=== PATIENT | female | born 1985 | race Caucasian/White ===

== ENCOUNTER 2022-07-12 10:05 | Emergency (ER) | payer OTHER ==
[2022-07-12] MEDS ORDERED: Sodium Chloride 0.9% 1000 ML 1,000 ML IV STA ×2 (10:29→13:04)
[2022-07-12] MEDS ORDERED: Zofran 4 MG/2 ML VIAL IV ONE (10:29)
[2022-07-12 10:48] LABS: VBG HCO3- 27.3 meq/L (22-28); VBG HEMOGLOBIN 15.6; VBG O2 SATURATION 67.6 (95-100); VBG POTASSIUM 3.3 (3.5-5.1); VBG pH 7.4 (7.32-7.42)
[2022-07-12 10:49] LABS: Lactic Acid 1.9 (0.4-2.0)
[2022-07-12 10:52] LABS: Absolute Neutrophil Ct (ANC) 3.51 x10^3/uL (1.4-6.9); Basophil (Absolute #) 0.05 x10^3/uL (0-0.4); Eosinophil % 6.5 % (0.00-5.0); Eosinophil (Absolute #) 0.39 x10^3/uL (0-0.5); Hematocrit 42.1 % (35-47); Hemoglobin 14.4 g/dL (12.0-16.0); Lymphocytes % 28.1 % (24.0-44.0); Mean Cell Volume 87.5 fL (78-100); Mean Corpuscular Hemoglobin 29.9 pg (26-32); Mean Corpuscular Hgb Concent. 34.2 g/dL (32-36); Mean Platelet Volume 12.7 fL (7.5-11.0); Monocyte (Absolute #) 0.38 x10^3/uL (0.0-1.3); Monocytes % 6.3 % (0.0-12.0); Neutrophil % 58.1 % (36.0-66.0); Platelet Count 242 x10^3/uL (150-450); Red Blood Count 4.81 x10^6/uL (4.1-5.4); Red Cell Distribution Width 12.3 % (11.5-14.0)
[2022-07-12] MEDS ORDERED: Sodium Chloride 0.9% 1000 ML 1,000 ML ONE ×2 (10:56→13:20)
[2022-07-12] MEDS ORDERED: Zofran 4 MG/2 ML VIAL ONE (10:56)
[2022-07-12 11:04] LABS: ALBUMIN 4.6 g/dL (3.5-5.0); ALKALINE PHOSPHATASE 158 U/L (38-126); ANION GAP 14.4 MEQ/L (5-15); BLOOD UREA NITROGEN 9 mg/dL (7-17); CHLORIDE 95 mmol/L (98-107); Calcium 9.1 mg/dL (8.4-10.2); Carbon Dioxide 27 mmol/L (22-30); Creatinine 1 0.68 mg/dL (0.52-1.04); EST GLOMERULAR FILTRATION RATE > 60.0 ML/MIN; Glucose 330 mg/dL (74-106); MAGNESIUM 1.6 mg/dL (1.6-2.3); Potassium 3.5 mmol/L (3.5-5.1); SGOT/AST 22 U/L (14-36); SGPT/ALT 23 U/L (0-35); SODIUM 133 mmol/L (137-145)
[2022-07-12] MEDS ORDERED: TYLENOL EXTRA STRENGTH 500 MG ONE (11:08)
[2022-07-12] MEDS ORDERED: MORPHINE SULFATE 4 MG INJ ONE ×2 (11:08→11:13)
[2022-07-12 12:58] LABS: Appearance CLEAR (CLEAR); Bilirubin NEGATIVE (NEGATIVE); Glucose 500 mg/dL (NEGATIVE); Ketones LARGE-80 (NEGATIVE); Nitrite NEGATIVE (NEGATIVE); Ph 5.5 (5-6); Protein,Urine Dip NEGATIVE (Negative); RBC NEGATIVE Ery/ul (0-5); Urobilinogen 0.2 mg/dL (0-1)
[2022-07-12 12:59] LABS: Dipstick done @ ? MAIN LAB
[2022-07-12] MEDS ORDERED: MORPHINE SULFATE 4 MG INJ IV ONE (13:05)
--- NOTE | 2022-07-12 13:05 | ERPHSYRPT ---
- History of Present Illness Time Seen by Provider: 07/12/22 10:08 Source: patient Exam Limitations: no limitations Patient Subjective Stated Complaint: hyperglycemia with N&V, diarrhea, body aches, headache Triage Nursing Assessment: Pt brought to the ER by her daughter, tachycardic, rates head and overall pain as 08/03, has been in DKA once before when they diagnosed her with diabetes 3 years ago and as a type 1, pulses normal, skin n/wd, N&V, diarrhea, symptoms began last night and pt administered over 100 units of insulin and was afraid to administer any more Physician History: 37 years old with type I diabetic issues with insulin pump for almost 2 months and currently using sliding scale insulin presented in the ER with hyperglycemia since yesterday. Patient report her blood sugar was reading high on the meter, took 45 units of insulin last night. She also reports having generalized body aches fatigue tiredness, headache with nausea and 2-3 episodes of nonprojectile, nonbilious vomiting. No cough or shortness of breath. Subjective feeling of fever and chills. Patient thinks she is in DKA. Blood sugar is 341 on presentation. Patient has positive ketones urine checked at home. Timing/Duration: yesterday, gradual onset, worse Severity: mild, moderate Associated Symptoms: nausea, vomiting, abdominal pain, headaches, weakness Allergies/Adverse Reactions: amoxicillin Allergy (Verified 07/12/22 10:56) erythromycin base Allergy (Verified 07/12/22 10:56) Home Medications: Atorvastatin Calcium [Lipitor] 20 mg PO DAILY 07/12/22 [History] Fluoxetine HCl [Prozac] 40 mg PO DAILY 07/12/22 [History] Gabapentin [Neurontin] 600 mg PO QID 07/12/22 [History] Insulin Lispro [Admelog] 0 units SQ UD 07/12/22 [History] Levothyroxine Sodium 100 Mcg [Synthroid 100 Mcg] 100 mcg PO DAILY 07/12/22 [History] Lumateperone Tosylate [Caplyta] 42 mg PO DAILY 07/12/22 [History] Omeprazole 40 mg PO DAILY 07/12/22 [History] clonazePAM [Clonazepam] 0.5 mg PO BID 07/12/22 [History] Hx Influenza Vaccination/Date Given: Yes Travel Risk - International Travel Have you traveled outside of the country in past 3 weeks: No - Coronavirus Screening Are you exhibiting any of the following symptoms?: No Close contact with a COVID-19 positive Pt in past 14-21 Days: No - Vaccine Status Have you recieved a Covid-19 vaccination: Yes Therapist Physical: Pfizer - Vaccination Dates Date of 2cond Vaccination (if applicable): 2020 - Review of Systems Constitutional: Fever, Chills, Fatigue, Weakness Eyes: No Symptoms Ears, Nose, & Throat: No Symptoms Respiratory: No Symptoms Cardiac: No Symptoms Abdominal/Gastrointestinal: Abdominal Pain, Nausea, Vomiting Genitourinary Symptoms: No Symptoms Musculoskeletal: Myalgias Neurological: Headache Psychological: No Symptoms Endocrine: No Symptoms Hematologic/Lymphatic: No Symptoms Immunological/Allergic: No Symptoms - Past Medical History Pertinent Past Medical History: Yes Endocrine Medical History: Diabetes Type I, Hypothyroidism Other Medical History: hoshimotos, 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, gastroparesis - Past Surgical History Past Surgical History: Yes Gastrointestinal: Cholecystectomy Musculoskeletal: Orthopedic Surgery Female Surgical History: Hysterectomy Other Surgical History: no saliva gland on rt side, carpel tunnel, bladder surgery, ankle - Social History Smoking Status: Current every day smoker Exposure to second hand smoke: Yes Drug Use: none Patient Lives Alone: No - Female History Hx Now: No - Nursing Vital Signs Nursing Vital Signs: Initial Vital Signs Temperature 97.6 F 07/12/22 10:19 Pulse Rate 105 H 07/12/22 10:19 Blood Pressure 133/78 07/12/22 10:19 O2 Sat by Pulse Oximetry 99 07/12/22 10:19 Pain Scale Pain Intensity 10 - Physical Exam General Appearance: no apparent distress, alert Eye Exam: PERRL/EOMI Ears, Nose, Throat Exam: normal ENT inspection, TMs normal, pharynx normal, moist mucous membranes Neck Exam: normal inspection, non-tender, supple, full range of motion Respiratory Exam: normal breath sounds, lungs clear Cardiovascular Exam: regular rate/rhythm, normal heart sounds Gastrointestinal/Abdomen Exam: soft, normal bowel sounds, No tenderness Back Exam: normal inspection, normal range of motion Extremity Exam: normal inspection, normal range of motion, pelvis stable Neurologic Exam: alert, oriented x 3, cooperative Skin Exam: normal color SpO2 Interpretation: normal SpO2: 98 O2 Delivery: Room Air Ordered Tests: Active Orders 24 hr Category Date Time Status Programmer Analyst Health It STAT Care 07/12/22 10:30 Completed EKG-ER Only STAT Care 07/12/22 10:29 Completed IV Insertion STAT Care 07/12/22 10:29 Completed POCT Glucose Check STAT Care 07/12/22 10:29 Completed CBC W DIFF Stat Lab 07/12/22 10:45 Completed CMP Stat Lab 07/12/22 10:45 Completed Lactic Acid Urgent Lab 07/12/22 10:38 Completed MAGNESIUM Stat Lab 07/12/22 10:45 Completed POCT GLUCOSE Stat Lab 07/12/22 10:25 Completed POCT GLUCOSE Stat Lab 07/12/22 14:39 Completed UA W/RFX CULTURE Stat Lab 07/12/22 11:49 Completed VENOUS BLOOD GAS Urgent Lab 07/12/22 10:38 Completed Medication Summary Discontinued Medications Generic Name Dose Route Start Last Admin Trade Name Artisq PRN Reason Stop Dose Admin Acetaminophen Confirm 07/12/22 11:08 Acetaminophen 500 Mg Tablet Administered 07/12/22 11:09 Dose 1,000 mg .ROUTE .STK-MED ONE Acetaminophen 1,000 mg 07/12/22 13:15 07/12/22 11:10 Acetaminophen 500 Mg Tablet PO 07/12/22 13:16 1,000 mg STAT ONE Administration Sodium Chloride 1,000 mls @ 999 mls/hr 07/12/22 10:29 07/12/22 12:27 Sodium Chloride 0.9% 1000 Ml IV 07/12/22 11:29 Infused .Q1H1M STA Infusion Sodium Chloride Confirm 07/12/22 10:56 Sodium Chloride 0.9% 1000 Ml Administered 07/12/22 10:57 Dose 1,000 mls @ ud .ROUTE .STK-MED ONE Sodium Chloride 1,000 mls @ 999 mls/hr 07/12/22 13:04 07/12/22 14:42 Sodium Chloride 0.9% 1000 Ml IV 07/12/22 14:04 Infused .Q1H1M STA Infusion Sodium Chloride Confirm 07/12/22 13:20 Sodium Chloride 0.9% 1000 Ml Administered 07/12/22 13:21 Dose 1,000 mls @ ud .ROUTE .STK-MED ONE Insulin Human Regular 6 unit 07/12/22 14:49 07/12/22 15:13 Insulin Regular, Human 1 Unit IV 07/12/22 14:50 6 unit STAT ONE Administration Insulin Human Regular Confirm 07/12/22 15:12 Insulin Regular, Human 1 Unit Administered 07/12/22 15:13 Dose 6 unit .ROUTE .STK-MED ONE Morphine Sulfate Confirm 07/12/22 11:08 Morphine Sulfate 4 Mg/Ml Injection Administered 07/12/22 11:09 Dose 4 mg .ROUTE .STK-MED ONE Morphine Sulfate Confirm 07/12/22 11:13 Morphine Sulfate 4 Mg/Ml Injection Administered 07/12/22 11:14 Dose 4 mg .ROUTE .STK-MED ONE Morphine Sulfate 4 mg 07/12/22 13:05 07/12/22 11:10 Morphine Sulfate 4 Mg/Ml Injection IV 07/12/22 13:06 4 mg STAT ONE Administration Ondansetron HCl 4 mg 07/12/22 10:29 07/12/22 11:02 Ondansetron Hcl 4 Mg/2 Ml Vial IV 07/12/22 10:30 4 mg STAT ONE Administration Ondansetron HCl Confirm 07/12/22 10:56 Ondansetron Hcl 4 Mg/2 Ml Vial Administered 07/12/22 10:57 Dose 4 mg .ROUTE .STK-MED ONE Lab/Rad Data: Laboratory Result Diagrams 07/12/22 10:45 07/12/22 10:45 Laboratory Results 07/12/22 07/12/22 07/12/22 Range/Units 14:39 14:30 11:49 WBC (4.0-10.5) x10^3/uL RBC (4.1-5.4) x10^6/uL Hgb (12.0-16.0) g/dL Hct (35-47) % MCV (78-100) fL MCH (26-32) pg MCHC (32-36) g/dL RDW (11.5-14.0) % Plt Count (150-450) x10^3/uL MPV (7.5-11.0) fL Gran % (36.0-66.0) % Immature Gran % (Auto) (0.00-0.4) % Nucleat RBC Rel Count (0.00-0.1) % Eos # (Auto) (0-0.5) x10^3/uL Immature Gran # (Auto) (0.00-0.03) x10^3u/L Absolute Lymphs (auto) (1.0-4.6) x10^3/uL Absolute Monos (auto) (0.0-1.3) x10^3/uL Absolute Nucleated RBC (0.00-0.01) x10^3u/L Lymphocytes % (24.0-44.0) % Monocytes % (0.0-12.0) % Eosinophils % (0.00-5.0) % Basophils % (0.0-0.4) % Absolute Granulocytes (1.4-6.9) x10^3/uL Basophils # (0-0.4) x10^3/uL pO2/FiO2 Ratio % VBG pH (7.32-7.42) VBG pCO2 at Pat Temp (42-55) mm/Hg VBG pO2 at Pat Temp (25-40) mm/Hg VBG HCO3 (22-28) meq/L VBG O2 Sat (Paul) (95-100) VBG Base Excess (-2.0-2.0) VBG Hemoglobin VBG Carboxyhemoglobin (0.0-6.9) % T HGB POC Potassium (3.5-5.1) Sodium (137-145) mmol/L Potassium (3.5-5.1) mmol/L Chloride (98-107) mmol/L Carbon Dioxide (22-30) mmol/L Anion Gap (5-15) MEQ/L BUN (7-17) mg/dL Creatinine (0.52-1.04) mg/dL Estimated GFR ML/MIN Glucose (74-106) mg/dL POC Glucometer 303 H (74 to 106) mg/dL Lactic Acid (0.4-2.0) Calcium (8.4-10.2) mg/dL Magnesium (1.6-2.3) mg/dL Total Bilirubin (0.2-1.3) mg/dL AST (14-36) U/L ALT (0-35) U/L Alkaline Phosphatase (38-126) U/L Serum Total Protein (6.3-8.2) g/dL Albumin (3.5-5.0) g/dL Urinalys Dipstick Clnc MAIN LAB Urine Color YELLOW (YELLOW) Urine Appearance CLEAR (CLEAR) Urine pH 5.5 (5-6) Ur Specific Lexa 1.020 (1.005-1.025) POC Urine Protein Conf NEGATIVE (Negative) Urine Ketones LARGE-80 (NEGATIVE) Urine Nitrite NEGATIVE (NEGATIVE) Urine Bilirubin NEGATIVE (NEGATIVE) Urine Urobilinogen 0.2 (0-1) mg/dL Urine Leukocytes NEGATIVE (NEGATIVE) Urine WBC (Auto) NONE (0-5) /HPF Urine RBC (Auto) NONE (0-2) /HPF U Epithel Cells (Auto) NONE (FEW) /HPF Urine Bacteria (Auto) NONE (NEGATIVE) /HPF Urine RBC NEGATIVE (0-5) Rylan/ul Ur Culture Indicated? NO Urine Glucose 500 (NEGATIVE) mg/dL Influenza Type A Ag NEGATIVE (NEGATIVE) Influenza Type B Ag NEGATIVE (NEGATIVE) RSV (PCR) NEGATIVE (Negative) SARS-CoV-2 (PCR) NEGATIVE (NEGATIVE) 07/12/22 07/12/22 07/12/22 Range/Units 10:45 10:45 10:38 WBC 6.0 (4.0-10.5) x10^3/uL RBC 4.81 (4.1-5.4) x10^6/uL Hgb 14.4 (12.0-16.0) g/dL Hct 42.1 (35-47) % MCV 87.5 (78-100) fL MCH 29.9 (26-32) pg MCHC 34.2 (32-36) g/dL RDW 12.3 (11.5-14.0) % Plt Count 242 (150-450) x10^3/uL MPV 12.7 H (7.5-11.0) fL Gran % 58.1 (36.0-66.0) % Immature Gran % (Auto) 0.2 (0.00-0.4) % Nucleat RBC Rel Count 0.0 (0.00-0.1) % Eos # (Auto) 0.39 (0-0.5) x10^3/uL Immature Gran # (Auto) 0.01 (0.00-0.03) x10^3u/L Absolute Lymphs (auto) 1.70 (1.0-4.6) x10^3/uL Absolute Monos (auto) 0.38 (0.0-1.3) x10^3/uL Absolute Nucleated RBC 0.00 (0.00-0.01) x10^3u/L Lymphocytes % 28.1 (24.0-44.0) % Monocytes % 6.3 (0.0-12.0) % Eosinophils % 6.5 H (0.00-5.0) % Basophils % 0.8 (0.0-0.4) % Absolute Granulocytes 3.51 (1.4-6.9) x10^3/uL Basophils # 0.05 (0-0.4) x10^3/uL pO2/FiO2 Ratio 21 % VBG pH 7.40 (7.32-7.42) VBG pCO2 at Pat Temp 44 (42-55) mm/Hg VBG pO2 at Pat Temp 39 (25-40) mm/Hg VBG HCO3 27.3 (22-28) meq/L VBG O2 Sat (Paul) 67.6 L (95-100) VBG Base Excess 2.0 (-2.0-2.0) VBG Hemoglobin 15.6 VBG Carboxyhemoglobin 2.0 (0.0-6.9) % T HGB POC Potassium 3.3 L (3.5-5.1) Sodium 133 L (137-145) mmol/L Potassium 3.5 (3.5-5.1) mmol/L Chloride 95 L (98-107) mmol/L Carbon Dioxide 27 (22-30) mmol/L Anion Gap 14.4 (5-15) MEQ/L BUN 9 (7-17) mg/dL Creatinine 0.68 (0.52-1.04) mg/dL Estimated GFR > 60.0 ML/MIN Glucose 330 H (74-106) mg/dL POC Glucometer (74 to 106) mg/dL Lactic Acid 1.9 (0.4-2.0) Calcium 9.1 (8.4-10.2) mg/dL Magnesium 1.6 (1.6-2.3) mg/dL Total Bilirubin 0.90 (0.2-1.3) mg/dL AST 22 (14-36) U/L ALT 23 (0-35) U/L Alkaline Phosphatase 158 H (38-126) U/L Serum Total Protein 8.0 (6.3-8.2) g/dL Albumin 4.6 (3.5-5.0) g/dL Urinalys Dipstick Clnc Urine Color (YELLOW) Urine Appearance (CLEAR) Urine pH (5-6) Ur Specific Lexa (1.005-1.025) POC Urine Protein Conf (Negative) Urine Ketones (NEGATIVE) Urine Nitrite (NEGATIVE) Urine Bilirubin (NEGATIVE) Urine Urobilinogen (0-1) mg/dL Urine Leukocytes (NEGATIVE) Urine WBC (Auto) (0-5) /HPF Urine RBC (Auto) (0-2) /HPF U Epithel Cells (Auto) (FEW) /HPF Urine Bacteria (Auto) (NEGATIVE) /HPF Urine RBC (0-5) Rylan/ul Ur Culture Indicated? Urine Glucose (NEGATIVE) mg/dL Influenza Type A Ag (NEGATIVE) Influenza Type B Ag (NEGATIVE) RSV (PCR) (Negative) SARS-CoV-2 (PCR) (NEGATIVE) 07/12/22 Range/Units 10:25 WBC (4.0-10.5) x10^3/uL RBC (4.1-5.4) x10^6/uL Hgb (12.0-16.0) g/dL Hct (35-47) % MCV (78-100) fL MCH (26-32) pg MCHC (32-36) g/dL RDW (11.5-14.0) % Plt Count (150-450) x10^3/uL MPV (7.5-11.0) fL Gran % (36.0-66.0) % Immature Gran % (Auto) (0.00-0.4) % Nucleat RBC Rel Count (0.00-0.1) % Eos # (Auto) (0-0.5) x10^3/uL Immature Gran # (Auto) (0.00-0.03) x10^3u/L Absolute Lymphs (auto) (1.0-4.6) x10^3/uL Absolute Monos (auto) (0.0-1.3) x10^3/uL Absolute Nucleated RBC (0.00-0.01) x10^3u/L Lymphocytes % (24.0-44.0) % Monocytes % (0.0-12.0) % Eosinophils % (0.00-5.0) % Basophils % (0.0-0.4) % Absolute Granulocytes (1.4-6.9) x10^3/uL Basophils # (0-0.4) x10^3/uL pO2/FiO2 Ratio % VBG pH (7.32-7.42) VBG pCO2 at Pat Temp (42-55) mm/Hg VBG pO2 at Pat Temp (25-40) mm/Hg VBG HCO3 (22-28) meq/L VBG O2 Sat (Paul) (95-100) VBG Base Excess (-2.0-2.0) VBG Hemoglobin VBG Carboxyhemoglobin (0.0-6.9) % T HGB POC Potassium (3.5-5.1) Sodium (137-145) mmol/L Potassium (3.5-5.1) mmol/L Chloride (98-107) mmol/L Carbon Dioxide (22-30) mmol/L Anion Gap (5-15) MEQ/L BUN (7-17) mg/dL Creatinine (0.52-1.04) mg/dL Estimated GFR ML/MIN Glucose (74-106) mg/dL POC Glucometer 341 H (74 to 106) mg/dL Lactic Acid (0.4-2.0) Calcium (8.4-10.2) mg/dL Magnesium (1.6-2.3) mg/dL Total Bilirubin (0.2-1.3) mg/dL AST (14-36) U/L ALT (0-35) U/L Alkaline Phosphatase (38-126) U/L Serum Total Protein (6.3-8.2) g/dL Albumin (3.5-5.0) g/dL Urinalys Dipstick Clnc Urine Color (YELLOW) Urine Appearance (CLEAR) Urine pH (5-6) Ur Specific Lexa (1.005-1.025) POC Urine Protein Conf (Negative) Urine Ketones (NEGATIVE) Urine Nitrite (NEGATIVE) Urine Bilirubin (NEGATIVE) Urine Urobilinogen (0-1) mg/dL Urine Leukocytes (NEGATIVE) Urine WBC (Auto) (0-5) /HPF Urine RBC (Auto) (0-2) /HPF U Epithel Cells (Auto) (FEW) /HPF Urine Bacteria (Auto) (NEGATIVE) /HPF Urine RBC (0-5) Rylan/ul Ur Culture Indicated? Urine Glucose (NEGATIVE) mg/dL Influenza Type A Ag (NEGATIVE) Influenza Type B Ag (NEGATIVE) RSV (PCR) (Negative) SARS-CoV-2 (PCR) (NEGATIVE) - Progress Progress: improved Progress Note: 07/12/22 14:48 She is given fluids, feeling better on reevaluation. She is not in DKA or HHS. Has hyperglycemia, given insulin. No focus of infection. Counseled on glycemic control. Outpatient follow-up recommended. Discussed signs symptoms of worsening needing return to ER which she seems understanding. Counseled pt/family regarding: lab results, diagnosis, need for follow-up - Departure Departure Disposition: Home Clinical Impression: Hyperglycemia Condition: Good Critical Care Time: No Referrals: DOCTOR,NO FAMILY [Primary Care Provider] - Follow up/PCP as directed CHIKIS BRADLEY MD [ACTIVE STAFF] - Follow up/PCP as directed Instructions: High Blood Sugar, Adult (DC) Additional Instructions: Keep yourself well-hydrated. Monitor your blood sugar regularly, keep a log and follow-up with primary care. Continue with insulin sliding scale. Return to ER for uncontrolled blood sugar.
[2022-07-12] MEDS ORDERED: TYLENOL EXTRA STRENGTH 500 MG PO ONE (13:15)
[2022-07-12 13:28] LABS: Urine Cultured Indicated? NO
[2022-07-12] MEDS ORDERED: HUMULIN R IV ONE (14:49)
[2022-07-12 15:06] LABS: INFLUENZA A NEGATIVE (NEGATIVE); INFLUENZA B NEGATIVE (NEGATIVE); RESPIRATORY SYNCTIAL VIRUS NEGATIVE (Negative); SARS-CoV-2 Xpert Express NEGATIVE (NEGATIVE)
[2022-07-12] MEDS ORDERED: HUMULIN R ONE (15:12)
[2022-07-12 15:15] VITALS: BP 110/57; PULSE 94
[2022-07-12 22:50] VITALS: O2SAT 98
== END 2022-07-12 15:38 | disposition home or self-care (01) ==
LOC: ED 10:05
DX: E10.65 Type 1 diabetes mellitus with hyperglycemia (principal); M79.10 Myalgia, unspecified site; R53.83 Other fatigue; R51.9 Headache, unspecified; R11.2 Nausea with vomiting, unspecified; Z72.0 Tobacco use; Z79.4 Long term (current) use of insulin; Z96.41 Presence of insulin pump (external) (internal); Z79.899 Other long term (current) drug therapy
CPT/HCPCS: 0241U; 36000; 36415; 80053; 81015; 82805; 82947; 83605; 83735; 85025; 93005; 93041; 96360; 96374; 96375; 99284; J1815; J2270; J2405; A9270-GY

== ENCOUNTER 2023-08-11 12:34 | Emergency (ER) | payer OTHER ==
--- NOTE | 2023-08-11 12:37 | ERPHSYRPT ---
- History of Present Illness Time Seen by Provider: 08/11/23 12:37 Source: patient Exam Limitations: no limitations Physician History: This is an obese 38-year-old white female patient who several weeks ago underwent right knee replacement followed by postoperative infection. She is currently on doxycycline medication for 6 months which was recently started. Patient was told not to miss any doses. However, she did miss approximately 1 week of antibiotics. In the last several days she has noticed increased swelling and tenderness in her right lower extremity. Patient is a daily smoker of cigarettes. Patient does have insulin-dependent diabetes and peripheral neuropathy and is taking gabapentin for this. She has only been taking Tylenol and ibuprofen for pain control. This is not helping her. Patient has a history of hypertension, obesity, hyperlipidemia, hypothyroidism and gastroesophageal reflux disease. She has had no cough. She denies chest pain. She is not short of breath Method of Injury: other (Postoperative right knee replacement) Occurred: days ago Quality: aching (Last several days), throbbing Severity of Pain-Max: moderate Severity of Pain-Current: moderate Lower Extremities Pain: knee: right Modifying Factors: Improves With: movement Associated Symptoms: other Allergies/Adverse Reactions: amoxicillin Allergy (Verified 07/12/22 10:56) erythromycin base Allergy (Verified 07/12/22 10:56) Home Medications: Atorvastatin Calcium [Lipitor] 20 mg PO DAILY 07/12/22 [History] Fluoxetine HCl [Prozac] 40 mg PO DAILY 07/12/22 [History] Gabapentin [Neurontin] 600 mg PO QID 07/12/22 [History] Insulin Lispro [Admelog] 0 units SQ UD 07/12/22 [History] Levothyroxine Sodium 100 Mcg [Synthroid 100 Mcg] 112 mcg PO DAILY 07/12/22 [History] Lumateperone Tosylate [Caplyta] 42 mg PO DAILY 07/12/22 [History] Omeprazole 40 mg PO DAILY 07/12/22 [History] clonazePAM [Clonazepam] 0.5 mg PO TID 07/12/22 [History] Doxycycline Hyclate 100 mg [Vibramycin 100 MG] 100 mg PO BID 08/11/23 [History] Metoprolol Tartrate 25 mg [Lopressor 25MG Tab] 25 mg PO DAILY 08/11/23 [History] Tizanidine HCl 4 mg [Zanaflex 4 MG] 4 mg PO BID 08/11/23 [History] Hx Influenza Vaccination/Date Given: Yes Travel Risk - International Travel Have you traveled outside of the country in past 3 weeks: No (Hurts to bear weight but can do so) - Coronavirus Screening Are you exhibiting any of the following symptoms?: No Close contact with a COVID-19 positive Pt in past 14-21 Days: No - Vaccine Status Have you recieved a Covid-19 vaccination: Yes 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, gastroparesis - Past Surgical History Past Surgical History: Yes Gastrointestinal: Cholecystectomy Musculoskeletal: Orthopedic Surgery Female Surgical History: Hysterectomy Other Surgical History: no saliva gland on rt side, carpel tunnel, bladder surgery, ankle - Social History Smoking Status: Current every day smoker Exposure to second hand smoke: Yes Drug Use: none Patient Lives Alone: No - Nursing Vital Signs Nursing Vital Signs: Initial Vital Signs Pulse Rate 76 08/11/23 13:00 Blood Pressure 131/93 08/11/23 13:00 O2 Sat by Pulse Oximetry 98 08/11/23 13:00 Pain Scale Pain Intensity 8 - Physical Exam General Appearance: no apparent distress, alert, anxiety, obese Eyes, Ears, Nose, Throat Exam: normal ENT inspection, moist mucous membranes Neck Exam: normal inspection, non-tender, supple, full range of motion Cardiovascular/Respiratory Exam: chest non-tender, normal breath sounds, regular rate/rhythm, heart sounds normal, no respiratory distress Gastrointestinal/Abdominal Exam: non-tender Back Exam: normal inspection, normal range of motion, No CVA tenderness, No vertebral tenderness Hips Exam: bilateral: non-tender, normal inspection, normal range of motion, no evidence of injury Legs Exam: bilateral leg: non-tender, normal inspection, normal range of motion, no evidence of injury Knees Exam: right knee: soft tissue tenderness (Right anterior swelling), swelling (Right anterior swelling), left knee: non-tender, normal inspection, normal range of motion, no evidence of injury Ankle Exam: bilateral ankle: non-tender, normal inspection, normal range of motion, no evidence of injury Foot Exam: bilateral foot: non-tender, normal inspection, normal range of motion, no evidence of injury Neuro/Tendon Exam: normal sensation, normal motor functions, normal tendon functions, responds to pain, no evidence tendon injury Mental Status Exam: alert, oriented x 3, cooperative Skin Exam: normal color, warm, dry SpO2 Interpretation: normal O2 Delivery: Room Air - Course Nursing assessment & vital signs reviewed: Yes Ordered Tests: Active Orders 24 hr Category Date Time Status LOWER EXTREMITY WO CONTRAST [CT] Stat Exams 08/11/23 13:57 Completed VENOUS UNILAT/LIMITED EXTREMIT [US] Stat Exams 08/11/23 14:02 Completed Medication Summary Discontinued Medications Generic Name Dose Route Start Last Admin Trade Name Artisq PRN Reason Stop Dose Admin Hydromorphone HCl 1 mg 08/11/23 13:56 08/11/23 14:20 Hydromorphone 1 Mg/1ml Inj IM 08/11/23 13:57 1 mg STAT ONE Administration Hydromorphone HCl Confirm 08/11/23 14:01 Hydromorphone 1 Mg/1ml Inj Administered 08/11/23 14:02 Dose 1 mg .ROUTE .STK-MED ONE Ondansetron HCl 4 mg 08/11/23 13:56 08/11/23 14:19 Zofran 4 Mg/Udtablet Orally Disintegrating PO 08/11/23 13:57 4 mg STAT ONE Administration Ondansetron HCl Confirm 08/11/23 14:01 Zofran 4 Mg/Udtablet Orally Disintegrating Administered 08/11/23 14:02 Dose 4 mg .ROUTE .STK-MED ONE - Progress Progress: improved, pain not gone completely Progress Note: 08/11/23 14:07 This patient's medical issue is 1 of low to moderate complexity. Level complex in the work-up performed is based on review of the patient's past medical history, review the patient's medication list, review the patient's drug allergy list, history of present illness and physical findings on examination. This patient will undergo a CT scan of the right knee without contrast as well as a venous Doppler of the right lower extremity to evaluate for possible deep venous thrombosis. 08/11/23 15:12 Venous Doppler of th right lower extremity is negative for DVT. This was interpreted by the radiologist. CT scan of the right knee without contrast shows small nonspecific effusion with anterior scar. No other bony, articular or soft tissue abnormality seen. No mention of abscess. Counseled pt/family regarding: diagnosis, need for follow-up, rad results Medical Desision Making - Diagnostic Testing Diagnostic test were ordered, analyzed, and reviewed by me: Yes Radiological Interpretation: Reviewed by me, Teleradiologist Report - Risk of complications The pt has a mod risk of morbidity or mortality based on: Need for prescription drug management - Departure Departure Disposition: Home Clinical Impression: Right knee pain Condition: Stable Critical Care Time: No Referrals: DOCTOR,NO FAMILY [NON-STAFF PHY W/O PRIVILEGES] - Follow up/PCP as directed Additional Instructions: Ice pack to right anterior knee 3 times a day for the next 48 hours. Call your orthopedic surgeon today to make certain you obtain an appointment next 3 to 5 days. Continue your antibiotics as prescribed. Prescriptions: Oxycodone HCl/Acetaminophen [Percocet 5-325 mg Tablet] 1 each PO Q8H PRN PRN #6 tablet MDD 3 PRN Reason: Moderate To Severe Pain
[2023-08-11 13:05] VITALS: RESP 18; TEMP 97
[2023-08-11] MEDS ORDERED: ZOFRAN ODT 4 MG PO ONE (13:56)
[2023-08-11] MEDS ORDERED: Hydromorphone 1 mg/ml Injection IM ONE ×2 (13:56→15:16)
[2023-08-11] MEDS ORDERED: Hydromorphone 1 mg/ml Injection ONE ×2 (14:01→15:20)
[2023-08-11] MEDS ORDERED: ZOFRAN ODT 4 MG ONE (14:01)
--- NOTE | 2023-08-11 14:38 | XRAY ---
Indication: Pain and swelling following knee replacement. Two-dimensional sonogram and color Doppler imaging of the major venous vessels of the right leg performed. Comparison: None No thrombus seen in the examined deep venous vessels of the right leg including greater saphenous vein. Veins demonstrate normal compressibility. Venous waveforms are normal with and without augmentation. Impression: Right leg negative for DVT.
--- NOTE | 2023-08-11 14:56 | XRAY ---
Indication: Pain and swelling following knee replacement April 26, 2023. Multiple contiguous axial images obtained through the right knee. Sagittal and coronal reformatted images obtained. Comparison: None Total knee arthroplasty with extreme beam artifact from prosthesis limiting CT exam. Small nonspecific effusion and anterior knee scar. No other bony, articular, or soft tissue abnormalities on this noncontrast exam.
[2023-08-11 15:58] VITALS: BP 110/67
[2023-08-11 16:19] VITALS: PULSE 78; O2SAT 97
== END 2023-08-11 16:18 | disposition home or self-care (01) ==
LOC: ED 12:34
DX: M25.561 Pain in right knee (principal); M79.604 Pain in right leg; E10.42 Type 1 diabetes mellitus with diabetic polyneuropathy; I10 Essential (primary) hypertension; E78.5 Hyperlipidemia, unspecified; Z79.891 Long term (current) use of opiate analgesic; Z79.899 Other long term (current) drug therapy; Z72.0 Tobacco use
CPT/HCPCS: 73700; 93971; 96372; 99284; J1170; Q0162

== ENCOUNTER 2023-09-22 08:18 | Emergency (ER) | payer OTHER ==
--- NOTE | 2023-09-22 08:23 | ERPHSYRPT ---
- History of Present Illness Time Seen by Provider: 09/22/23 08:23 Source: patient Exam Limitations: no limitations Physician History: This is an obese 38-year-old white female patient who underwent a right knee replacement in April 2023. After she had a infection present. She has a history of MRSA. Patient is on doxycycline for 6 months. Patient sees a pain specialist. Patient saw infectious disease specialist 2 days ago. Patient was seen for the same issue in our emergency department on 08/11/2023. She underwent an ultrasound of that right lower extremity was negative for DVT. She underwent a CAT scan of that right knee and there was a nonspecific effusion present. She has not seen her orthopedic surgeon. Patient feels that the right knee is more swollen and she is concerned that there is been movement in the surgical hardware present. Patient states she put a call into the infectious disease doctor because she did see on her profile that the inflammatory markers are elevated. She also put a call into her orthopedic doctor and neither 1 have contacted her. Patient has a history of anxiety, hypertension, hypothyroidism (Conchis's disease), depression, insulin-dependent diabetes and hyperlipidemia. Method of Injury: other (Postoperative right knee pain and swelling) Severity of Pain-Max: moderate Severity of Pain-Current: mild (Mild to moderate) Lower Extremities Pain: knee: right Modifying Factors: Improves With: movement Associated Symptoms: popping sensation Allergies/Adverse Reactions: amoxicillin Allergy (Verified 09/22/23 08:29) erythromycin base Allergy (Verified 09/22/23 08:29) Home Medications: Atorvastatin Calcium [Lipitor] 20 mg PO DAILY 07/12/22 [History] Fluoxetine HCl [Prozac] 40 mg PO DAILY 07/12/22 [History] Gabapentin [Neurontin] 800 mg PO QID 07/12/22 [History] Insulin Lispro [Admelog] 0 units SQ UD 07/12/22 [History] Levothyroxine Sodium 100 Mcg [Synthroid 100 Mcg] 112 mcg PO DAILY 07/12/22 [History] Lumateperone Tosylate [Caplyta] 42 mg PO DAILY 07/12/22 [History] Omeprazole 40 mg PO DAILY 07/12/22 [History] clonazePAM [Clonazepam] 0.5 mg PO TID 07/12/22 [History] Doxycycline Hyclate 100 mg [Vibramycin 100 MG] 100 mg PO BID 08/11/23 [History] Metoprolol Tartrate 25 mg [Lopressor 25MG Tab] 25 mg PO DAILY 08/11/23 [History] Tizanidine HCl 4 mg [Zanaflex 4 MG] 4 mg PO BID 08/11/23 [History] Hx Tetanus, Diphtheria Vaccination/Date Given: Yes Hx Influenza Vaccination/Date Given: Yes Hx Pneumococcal Vaccination/Date Given: Yes Travel Risk - International Travel Have you traveled outside of the country in past 3 weeks: No - Coronavirus Screening Are you exhibiting any of the following symptoms?: No Close contact with a COVID-19 positive Pt in past 14-21 Days: No - Vaccine Status Have you recieved a Covid-19 vaccination: Yes 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, gastroparesis - Past Surgical History Past Surgical History: Yes Gastrointestinal: Cholecystectomy Musculoskeletal: Orthopedic Surgery Female Surgical History: Hysterectomy Other Surgical History: no saliva gland on rt side, carpel tunnel, bladder surgery, ankle - Social History Smoking Status: Current every day smoker Exposure to second hand smoke: Yes Drug Use: none Patient Lives Alone: No - Nursing Vital Signs Nursing Vital Signs: Initial Vital Signs Temperature 98.0 F 09/22/23 08:31 Pulse Rate 89 09/22/23 08:31 Respiratory Rate 18 09/22/23 08:31 Blood Pressure 128/74 09/22/23 08:31 O2 Sat by Pulse Oximetry 99 09/22/23 08:31 Pain Scale Pain Intensity 6 - Physical Exam General Appearance: no apparent distress, alert, anxiety, obese Eyes, Ears, Nose, Throat Exam: normal ENT inspection, moist mucous membranes Neck Exam: normal inspection, non-tender, supple, full range of motion Cardiovascular/Respiratory Exam: chest non-tender, no respiratory distress Gastrointestinal/Abdominal Exam: non-tender Back Exam: normal inspection, normal range of motion, No CVA tenderness, No vertebral tenderness Hips Exam: bilateral: non-tender, normal inspection, normal range of motion, no evidence of injury Legs Exam: bilateral leg: non-tender, normal inspection, normal range of motion, no evidence of injury Knees Exam: right knee: soft tissue tenderness, swelling (+/- Anteriorly), other (No significant warmth or redness on my examination), left knee: non-tender, normal inspection, normal range of motion, no evidence of injury Ankle Exam: bilateral ankle: non-tender, normal inspection, normal range of motion, no evidence of injury Foot Exam: bilateral foot: non-tender, normal inspection, normal range of motion, no evidence of injury Neuro/Tendon Exam: normal sensation, normal motor functions, normal tendon functions, responds to pain, no evidence tendon injury Mental Status Exam: alert, oriented x 3, cooperative Skin Exam: normal color, warm, dry SpO2 Interpretation: normal O2 Delivery: Room Air - Course Nursing assessment & vital signs reviewed: Yes Ordered Tests: Active Orders 24 hr Category Date Time Status KNEE (3 VIEWS) Stat Exams 09/22/23 08:44 Completed Medication Summary Discontinued Medications Generic Name Dose Route Start Last Admin Trade Name Beth PRN Reason Stop Dose Admin Hydromorphone HCl 1 mg 09/22/23 08:46 09/22/23 09:06 Hydromorphone 1 Mg/1ml Inj IM 09/22/23 08:47 1 mg STAT ONE Administration Hydromorphone HCl Confirm 09/22/23 08:57 Hydromorphone 1 Mg/1ml Inj Administered 09/22/23 08:58 Dose 1 mg .ROUTE .STK-MED ONE Levofloxacin 500 mg 09/22/23 08:47 09/22/23 09:48 Levofloxacin 500 Mg Tablet PO 09/22/23 08:48 Not Given STAT ONE Ondansetron HCl 4 mg 09/22/23 08:47 09/22/23 09:06 Zofran 4 Mg/Udtablet Orally Disintegrating PO 09/22/23 08:48 4 mg STAT ONE Administration Ondansetron HCl Confirm 09/22/23 08:56 Zofran 4 Mg/Udtablet Orally Disintegrating Administered 09/22/23 08:57 Dose 4 mg .ROUTE .STK-MED ONE Trimethoprim/Sulfamethoxazole 1 tab 09/22/23 08:49 09/22/23 09:06 Smz/Tmp Ds Tablet 1 Tablet PO 09/22/23 08:50 1 tab STAT ONE Administration Trimethoprim/Sulfamethoxazole Confirm 09/22/23 08:56 Smz/Tmp Ds Tablet 1 Tablet Administered 09/22/23 08:57 Dose 1 tab PO .STK-MED ONE - Progress Progress: improved, pain not gone completely Progress Note: 09/22/23 08:56 This patient's medical issue is 1 of low to moderate complexity. Level complex in the workup performed is based on review the patient's past medical history, review the patient's medication list, reviewed patient's drug allergy list, history of present illness and physical findings on examination. This patient workup includes x-ray of the right knee. We will also provide the patient an oral Bactrim DS, intramuscular Dilaudid 1 mg and 4 mg of Zofran ODT. Patient will need to continue to try to make contact with her infectious disease specialist and orthopedic surgeon today for further evaluation and management 09/22/23 08:57 09/22/23 09:16 I interpreted the x-ray of the right knee. I do not see any movement or abnormality in the position of the patient's surgical hardware. The patient was told this. She was also informed that if she wants to wait for the radiologist final interpretation, it may take longer than usual to receive that impression secondary to multiple studies that the radiologist is reading at this time. 09/22/23 09:52 The radiologist interpretation of the x-ray of the right knee returned. Knee replacement without evidence of breakage or loosening of internal fixation. Tiny metallic density measuring up to 1.5 mm seen in soft tissue anterior medial aspect of knee anterior medially just inferior to the level of the patella. Likely a foreign body. No acute fracture or dislocation present. These findings were discussed in detail with the patient and her significant other/family member. Counseled pt/family regarding: diagnosis, need for follow-up, rad results Medical Desision Making - Independent Historian Additional History obtained from: Spouse - Diagnostic Testing Diagnostic test were ordered, analyzed, and reviewed by me: Yes Radiological Interpretation: Interpreted by me, Reviewed by me, Teleradiologist Report - Risk of complications Low Risk: Low risk of morbidity from additional dx testing or treatment - Departure Departure Disposition: Home Clinical Impression: Right knee pain Condition: Stable Critical Care Time: No Referrals: SHANDA MATOS MD [Primary Care Provider] - Follow up/PCP as directed Additional Instructions: Take your antibiotics as prescribed. Call your primary care physician and pain specialist for further evaluation management of your outpatient pain medication. Call your orthopedic surgeon and infectious disease specialist for further evaluation management of your antibiotic therapy as an outpatient and any other outpatient studies necessary.
[2023-09-22 08:34] VITALS: RESP 18; TEMP 98
[2023-09-22] MEDS ORDERED: Hydromorphone 1 mg/ml Injection IM ONE (08:46)
[2023-09-22] MEDS ORDERED: ZOFRAN ODT 4 MG PO ONE (08:47)
[2023-09-22] MEDS ORDERED: Levofloxacin 500 MG Tablet PO ONE (08:47)
[2023-09-22] MEDS ORDERED: BACTRIM DS TABLET PO ONE ×2 (08:49→08:56)
[2023-09-22] MEDS ORDERED: ZOFRAN ODT 4 MG ONE (08:56)
[2023-09-22] MEDS ORDERED: Hydromorphone 1 mg/ml Injection ONE (08:57)
--- NOTE | 2023-09-22 09:45 | XRAY ---
CLINICAL HISTORY:knee pain COMPARISON:None TECHNIQUE:X-ray knee right AP, oblique, and lateral views. FINDINGS: Knee replacement is noted without evidence of break or loosening of internal fixation. Tiny metallic density measures up to 1.5mm noted in the soft tissue at the anteromedial aspect of knee articulation just inferior to the level of the patella, likely a foreign body. Normal bone mineralization. Radiological examination of the knee demonstrates no focal bony lesion or bone erosion. No sclerotic or destructive bone changes. No definite fracture or dislocation. No joint effusion in the suprapatellar bursa. Soft tissues appear unremarkable. IMPRESSION: Knee replacement without evidence of break or loosening of internal fixation. Tiny metallic density measures up to 1.5mm noted in the soft tissue at the anteromedial aspect of knee articulation just inferior to the level of the patella, likely a foreign body. No acute osseous abnormality was seen in the knee. (Disclaimer: "A subtle bone abnormality or fracture may not be readily apparent on x-rays, thus clinical correlation and further imaging including follow-up CT, MRI or follow up x-rays are advised as needed"). Electronically Signed by: Ptee Arvizu MD. (09/22/2023 09:40:37 EST)
[2023-09-22 09:47] VITALS: BP 111/77; PULSE 77; O2SAT 96
== END 2023-09-22 09:59 | disposition home or self-care (01) ==
LOC: ED 08:18
DX: M25.561 Pain in right knee (principal); M25.461 Effusion, right knee; Z96.651 Presence of right artificial knee joint; I10 Essential (primary) hypertension; E10.9 Type 1 diabetes mellitus without complications; E78.5 Hyperlipidemia, unspecified; Z79.4 Long term (current) use of insulin; Z79.899 Other long term (current) drug therapy; Z72.0 Tobacco use
CPT/HCPCS: 73562; 96372; 99283; J1170; Q0162; A9270-GY

== ENCOUNTER 2023-11-12 10:11 | Emergency (ER) | payer OTHER ==
--- NOTE | 2023-11-12 10:17 | ERPHSYRPT ---
- History of Present Illness Time Seen by Provider: 11/12/23 10:16 Source: patient Exam Limitations: no limitations Physician History: This is a morbidly obese 38-year-old white female patient who has had septic joints in the past and has been chronically on doxycycline since June or July 2023. Patient has multiple complaints of pain including knee hip and back. She does see Dr. Pinto for pain control issues. Patient also sees an infectious disease specialist. Patient has had chronic, recurring diarrhea. She also states that her back pain is worsening. Patient was at the physical therapy department yesterday. Per patient report, patient states that Dr. Pinto's office wanted her to go to the emergency department to get a CAT scan of her lumbar spine. In the triage, patient states that she is also concerned about the multiple episodes of diarrhea she has been having over the last several weeks. She denies chest pain. She denies shortness of breath. She has mild diffuse abdominal pain. Patient has a history of hypothyroidism, gastro esophageal reflux disease, diabetes, hyperlipidemia and hypertension Timing/Duration: week(s), worse Method of Injury: other (No injury) Quality: sharp Back Pain Location: lumbar spine Severity of Pain-Max: moderate Severity of Pain-Current: moderate Modifying Factors: Improves With: movement Associated Symptoms: denies symptoms, lower back pain, muscle spasms, No fever, No chills, No urinary incontinence, No loss of bowel control, No numbness in legs/feet Previous symptoms: same symptoms as today, recently seen, recently treated Allergies/Adverse Reactions: amoxicillin Allergy (Verified 11/12/23 10:36) erythromycin base Allergy (Verified 11/12/23 10:36) Home Medications: Atorvastatin Calcium [Lipitor] 20 mg PO DAILY 07/12/22 [History] Fluoxetine HCl [Prozac] 40 mg PO DAILY 07/12/22 [History] Gabapentin [Neurontin] 800 mg PO QID 07/12/22 [History] Insulin Lispro [Admelog] 0 units SQ UD 07/12/22 [History] Lumateperone Tosylate [Caplyta] 42 mg PO DAILY 07/12/22 [History] Omeprazole 40 mg PO DAILY 07/12/22 [History] Doxycycline Hyclate 100 mg [Vibramycin 100 MG] 100 mg PO BID 08/11/23 [History] Metoprolol Tartrate 25 mg [Lopressor 25MG Tab] 25 mg PO DAILY 08/11/23 [History] Tizanidine HCl 4 mg [Zanaflex 4 MG] 4 mg PO BID 08/11/23 [History] Levothyroxine Sodium 1 tab PO DAILY 11/12/23 [History] Hx Tetanus, Diphtheria Vaccination/Date Given: Yes Hx Influenza Vaccination/Date Given: Yes Hx Pneumococcal Vaccination/Date Given: Yes Travel Risk - International Travel Have you traveled outside of the country in past 3 weeks: No - Coronavirus Screening Are you exhibiting any of the following symptoms?: No Close contact with a COVID-19 positive Pt in past 14-21 Days: No - Vaccine Status Have you recieved a Covid-19 vaccination: Yes 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[employer] - Vaccination Dates Date of 2cond Vaccination (if applicable): 2020 - Review of Systems Constitutional: No Symptoms Eyes: No Symptoms Ears, Nose, & Throat: No Symptoms Respiratory: No Symptoms Cardiac: No Symptoms Abdominal/Gastrointestinal: Abdominal Pain, Diarrhea, No Nausea, No Vomiting, No Constipation Genitourinary Symptoms: No Symptoms Musculoskeletal: Back Pain Skin: No Symptoms Neurological: No Symptoms Psychological: No Symptoms Endocrine: No Symptoms Hematologic/Lymphatic: No Symptoms Immunological/Allergic: No Symptoms All Other Systems: Reviewed and Negative - Past Medical History Pertinent Past Medical History: Yes Endocrine Medical History: Diabetes Type I, Hypothyroidism Other Medical History: ABSCESS OF R KNEE, SEPTIC ARTHRITIS OF R KNEE, ANEMIA, ANXIETY AND DEPRESSION, GERD, HYPOKALEMIA, OBESITY, S/P R TKR (APRIL 26, 2023), DM WITH DIABETIC NEUROPATHY, MOOD AFFECTIVE DISORDER, SAMIR'S DISEASE, NSVT, SUICIDAL IDEATION, OPEN L ANKLE FRACTURE (2019) AFTER FALLING DOWN BACK STAIR, DKA. PATIENT REPORTS A STRONG FAMILY HISTORY OF HER MOTHER REQUIRING MULTIPLE BACK SURGERIES STARTING AT A YOUNG AGE. SHE ALSO REPORT THAT SHE WAS TOLD AT THE AGE OF 20 Y.O THAT SHE NEEDED A KNEE REPLACEMENT. UNSURE OF REASON FOR RECOMMENDATION AT 20 Y.O. - Past Surgical History Past Surgical History: Yes Gastrointestinal: Cholecystectomy Musculoskeletal: Orthopedic Surgery Female Surgical History: Hysterectomy Other Surgical History: no saliva gland on rt side, carpel tunnel, bladder surgery, ankle - Social History Smoking Status: Current every day smoker Exposure to second hand smoke: Yes Drug Use: none Patient Lives Alone: No - Nursing Vital Signs Nursing Vital Signs: Initial Vital Signs Temperature 98.4 F 11/12/23 10:49 Pulse Rate 94 H 11/12/23 10:49 Respiratory Rate 30 H 11/12/23 10:49 Blood Pressure 128/103 11/12/23 10:49 O2 Sat by Pulse Oximetry 99 11/12/23 10:49 Pain Scale Pain Intensity 8 - Physical Exam General Appearance: no apparent distress, alert, anxiety, obese Eye Exam: PERRL/EOMI, eyes nml inspection Ears, Nose, Throat Exam: normal ENT inspection, moist mucous membranes Neck Exam: normal inspection, non-tender, supple, full range of motion Respiratory Exam: normal breath sounds, lungs clear, airway intact, No chest tenderness, No respiratory distress Cardiovascular Exam: regular rate/rhythm, normal heart sounds, normal peripheral pulses Gastrointestinal Exam: soft, normal bowel sounds, tenderness, rebound, No guarding Pelvic Exam: not done Rectal Exam: not done Back Exam: normal inspection, normal range of motion, No CVA tenderness, No vertebral tenderness Extremity Exam: normal inspection, normal range of motion, pelvis stable Neurologic Exam: alert, oriented x 3, cooperative, screwdown operator 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 nml as tested, normal mood/affect, nml cerebellar function, nml station & gait, sensation nml Skin Exam: normal color, warm, dry Lymphatic Exam: No adenopathy SpO2 Interpretation: normal O2 Delivery: Room Air - Course Nursing assessment & vital signs reviewed: Yes Ordered Tests: Active Orders 24 hr Category Date Time Status IV Insertion STAT Care 11/12/23 11:07 Active ABDOMEN AND PELVIS W/0 CONTRAS [CT] Stat Exams 11/12/23 11:05 Completed RECONSTRUCTION [CT] Stat Exams 11/12/23 11:05 Completed AMYLASE Stat Lab 11/12/23 11:07 Completed BLOOD CULTURE Stat Lab 11/12/23 11:07 Received CBC W DIFF Stat Lab 11/12/23 11:07 Completed CMP Stat Lab 11/12/23 11:07 Completed LIPASE Stat Lab 11/12/23 11:07 Completed UA W/RFX UR CULTURE Stat Lab 11/12/23 12:10 Completed Medication Summary Discontinued Medications Generic Name Dose Route Start Last Admin Trade Name Freq PRN Reason Stop Dose Admin Hydromorphone HCl 1 mg 11/12/23 11:07 11/12/23 11:50 Hydromorphone 1 Mg/1ml Inj IV 11/12/23 11:08 1 mg STAT ONE Administration Hydromorphone HCl Confirm 11/12/23 11:44 Hydromorphone 1 Mg/1ml Inj Administered 11/12/23 11:45 Dose 1 mg .ROUTE .STK-MED ONE Sodium Chloride 1,000 mls @ 999 mls/hr 11/12/23 11:07 11/12/23 12:49 Sodium Chloride 0.9% 1000 Ml IV 11/12/23 12:07 Infused .Q1H1M STA Infusion Sodium Chloride Confirm 11/12/23 11:45 Sodium Chloride 0.9% 1000 Ml Administered 11/12/23 11:46 Dose 1,000 mls @ ud .ROUTE .STK-MED ONE Prochlorperazine Edisylate 5 mg 11/12/23 11:07 11/12/23 11:47 Prochlorperazine Edisylate 10 Mg/2 Ml Vial IV 11/12/23 11:08 5 mg STAT ONE Administration Prochlorperazine Edisylate Confirm 11/12/23 11:44 Prochlorperazine Edisylate 10 Mg/2 Ml Vial Administered 11/12/23 11:45 Dose 10 mg .ROUTE .STK-MED ONE Lab/Rad Data: Laboratory Result Diagrams 11/12/23 11:07 11/12/23 11:07 Laboratory Results 11/12/23 11/12/23 11/12/23 Range/Units 12:10 11:07 11:07 WBC 6.0 (4.0-10.5) x10^3/uL RBC 4.22 (4.1-5.4) x10^6/uL Hgb 11.6 L (12.0-16.0) g/dL Hct 36.9 (35-47) % MCV 87.4 (78-100) fL MCH 27.5 (26-32) pg MCHC 31.4 L (32-36) g/dL RDW 14.4 H (11.5-14.0) % Plt Count 253 (150-450) x10^3/uL MPV 12.3 H (7.5-11.0) fL Gran % 63.0 (36.0-66.0) % Immature Gran % (Auto) 0.2 (0.00-0.4) % Nucleat RBC Rel Count 0.0 (0.00-0.1) % Eos # (Auto) 0.13 (0-0.5) x10^3/uL Immature Gran # (Auto) 0.01 (0.00-0.03) x10^3u/L Absolute Lymphs (auto) 1.60 (1.0-4.6) x10^3/uL Absolute Monos (auto) 0.42 (0.0-1.3) x10^3/uL Absolute Nucleated RBC 0.00 (0.00-0.01) x10^3u/L Lymphocytes % 26.8 (24.0-44.0) % Monocytes % 7.0 (0.0-12.0) % Eosinophils % 2.2 (0.00-5.0) % Basophils % 0.8 (0.0-0.4) % Absolute Granulocytes 3.77 (1.4-6.9) x10^3/uL Basophils # 0.05 (0-0.4) x10^3/uL Sodium 132 L (137-145) mmol/L Potassium 4.3 (3.5-5.1) mmol/L Chloride 100 (98-107) mmol/L Carbon Dioxide 24 (22-30) mmol/L Anion Gap 11.5 (5-15) MEQ/L BUN 14 (7-17) mg/dL Creatinine 0.72 (0.52-1.04) mg/dL Estimated GFR 109.0 ML/MIN Glucose 248 H (74-106) mg/dL Calcium 9.6 (8.4-10.2) mg/dL Total Bilirubin 0.90 (0.2-1.3) mg/dL AST 24 (14-36) U/L ALT 21 (0-35) U/L Alkaline Phosphatase 124 (38-126) U/L Serum Total Protein 7.7 (6.3-8.2) g/dL Albumin 4.6 (3.5-5.0) g/dL Amylase 42 (30-110) U/L Lipase 35 (23-300) U/L Urine Color Yellow (Yellow) Urine Appearance Clear (Clear) Urine pH 5.5 (4.6-8.0) Ur Specific [place] 1.015 (1.005-1.030) Urine Protein Negative (Negative) Urine Glucose (UA) 250 A (Negative) mg/dL Urine Ketones Negative (Negative) Urine Blood Negative (Negative) Urine Nitrite Negative (Negative) Urine Bilirubin Negative (Negative) Urine Urobilinogen 0.2 (0.2) mg/dL Ur Leukocyte Esterase Negative (Negative) U Hyaline Cast (Auto) NONE SEEN (0-2) /LPF Urine Microscopic RBC 3-5 (0-5) /HPF Urine Microscopic WBC 0-2 (0-5) /HPF Ur Epithelial Cells Few (None Seen) /HPF Urine Bacteria None Seen (None Seen) /HPF Urine Culture Reflexed NO (NO) - Progress Progress: improved, pain not gone completely, re-examined Progress Note: 11/12/23 11:14 This patient's medical issue is 1 of moderate complexity. The level of complexity and the workup performed is based on review of the patient's past medical history, review of the patient's medication list, review of patient drug allergy list, history present illness and physical findings on examination. The workup in this patient includes placement of an intravenous line, infusion of 1 L normal saline solution, infusion of 1 mg Dilaudid, infusion of 5 mg intravenous prochlorperazine, urinalysis, CBC, CMP, amylase, lipase, CT scan of the abdomen pelvis and reconstruction of the lumbar spine CT without contrast. 11/12/23 12:25 CT scan of the abdomen pelvis without contrast was interpreted by the radiologist and shows patchy right lower lobe groundglass airspace disease. There is normal appendix. There is hepatomegaly present. The remainder of the study shows no acute intra-abdominal or intrapelvic abnormality. CT scan reconstruction of the lumbar spine was interpreted by the radiologist. There is mild L5-S1 broad-based disc bulge better evaluated by outpatient MRI. There is no evidence of spinal canal or foraminal compromise. 11/12/23 13:11 I interpreted the patient's laboratory data results. Patient has no evidence of any acute, emergent medical issue based on the laboratory data. We will treat the patient as though she has a colitis based on her symptoms of multiple episodes of diarrhea. We will provide her with a prescription remotely to her pharmacy for Flagyl. Patient is to follow-up with her primary care provider and pain specialist today for outpatient pain control. Counseled pt/family regarding: lab results, diagnosis, need for follow-up, rad results Medical Desision Making - Independent Historian Additional History obtained from: Family - Diagnostic Testing Diagnostic test were ordered, analyzed, and reviewed by me: Yes Radiological Interpretation: Reviewed by me, Teleradiologist Report - Risk of complications The pt has a mod risk of morbidity or mortality based on: Need for prescription drug management - Departure Departure Disposition: Home Clinical Impression: Colitis, Acute exacerbation of chronic low back pain Condition: Stable Critical Care Time: No Referrals: SHANDA MATOS MD [Primary Care Provider] - Follow up/PCP as directed Additional Instructions: Drink plenty of clear liquids. Take both your antibiotics as prescribed. Call your infectious disease specialist today to discuss the use of antibiotics. Contact your pain specialist today to discuss your outpatient back pain management. Prescriptions: Metronidazole 500 mg [Flagyl 500 MG] 500 mg PO TID #21 tablet
[2023-11-12] MEDS ORDERED: Hydromorphone 1 mg/ml Injection IV ONE (11:07)
[2023-11-12] MEDS ORDERED: Compazine 10 MG/2 ML IV ONE (11:07)
[2023-11-12] MEDS ORDERED: Sodium Chloride 0.9% 1000 ML 1,000 ML IV STA (11:07)
[2023-11-12 11:13] VITALS: TEMP 98.4
[2023-11-12 11:20] LABS: Absolute Neutrophil Ct (ANC) 3.77 x10^3/uL (1.4-6.9); BASOPHIL % 0.8 % (0.0-0.4); Basophil (Absolute #) 0.05 x10^3/uL (0-0.4); Eosinophil % 2.2 % (0.00-5.0); Eosinophil (Absolute #) 0.13 x10^3/uL (0-0.5); Hematocrit 36.9 % (35-47); Hemoglobin 11.6 g/dL (12.0-16.0); IMMATURE GRAN # 0.01 x10^3u/L (0.00-0.03); IMMATURE GRAN % 0.2 % (0.00-0.4); Lymphocytes % 26.8 % (24.0-44.0); Mean Cell Volume 87.4 fL (78-100); Mean Corpuscular Hemoglobin 27.5 pg (26-32); Mean Corpuscular Hgb Concent. 31.4 g/dL (32-36); Mean Platelet Volume 12.3 fL (7.5-11.0); Monocyte (Absolute #) 0.42 x10^3/uL (0.0-1.3); Platelet Count 253 x10^3/uL (150-450); Red Blood Count 4.22 x10^6/uL (4.1-5.4); Red Cell Distribution Width 14.4 % (11.5-14.0)
--- NOTE | 2023-11-12 11:36 | XRAY ---
Indication: Chronic diarrhea. Multiple contiguous images obtained through the abdomen and pelvis without contrast. Comparison: None Lung bases demonstrates small patchy right lower lobe groundglass airspace disease. Heart not enlarged. Noncontrasted stomach and bowel loops appear nonobstructed with normal appendix. 20 cm hepatomegaly. Previous hysterectomy and cholecystectomy. No free fluid/air. Remaining liver, pancreas, spleen, adrenal glands, kidneys, ureters, bladder, and aorta are unremarkable for noncontrast exam. Osseous structures/lumbar spine intact. No ventral or inguinal hernias. Impression: 1. Patchy right lower lobe groundglass airspace disease and incidental hepatomegaly. 2. Remaining CT abdomen/pelvis without contrast exam is normal.
--- NOTE | 2023-11-12 11:38 | XRAY ---
Indication: Severe pain. Sagittal, coronal, and axial reconstructed images lumbar spine obtained using raw data from same day CT abdomen/pelvis exam. Comparison: None Mild broad-based disc bulge at L5-S1 level without spinal canal or foraminal compromise. No acute fracture, suspicious bony lesions, or spinal canal stenosis. Facets are symmetric. Sagittal and coronal reformatted images demonstrates normal alignment with vertebral body heights/disc spaces maintained.. No acute compression fracture or subluxation. CT abdomen/pelvis report separately. Impression: Mild L5-S1 broad-based disc bulge better evaluated with outpatient MRI. Remaining CT lumbar spine is normal.
[2023-11-12] MEDS ORDERED: Compazine 10 MG/2 ML ONE (11:44)
[2023-11-12] MEDS ORDERED: Hydromorphone 1 mg/ml Injection ONE (11:44)
[2023-11-12] MEDS ORDERED: Sodium Chloride 0.9% 1000 ML 1,000 ML ONE (11:45)
[2023-11-12 11:48] LABS: ALBUMIN 4.6 g/dL (3.5-5.0); ANION GAP 11.5 MEQ/L (5-15); BILIRUBIN,TOTAL 0.9 mg/dL (0.2-1.3); Calcium 9.6 mg/dL (8.4-10.2); Creatinine 1 0.72 mg/dL (0.52-1.04); Potassium 4.3 mmol/L (3.5-5.1); Total Protein 7.7 g/dL (6.3-8.2)
[2023-11-12 12:47] VITALS: PULSE 80; RESP 16
[2023-11-12 12:58] LABS: Appearance Clear (Clear); Bacteria None Seen /HPF (None Seen); Bilirubin Negative (Negative); Blood Negative (Negative); Epithelial Cells Few /HPF (None Seen); Glucose, Urine 250 mg/dL (Negative); Hyaline Casts NONE SEEN /LPF (0-2); Ketones Negative (Negative); Leukocyte Esterase Negative (Negative); Nitrite Negative (Negative); Ph 5.5 (4.6-8.0); Protein,Urine Dip Negative (Negative); Specific Gravity 1.015 (1.005-1.030); Urobilinogen 0.2 mg/dL (0.2); WBC 0-2 /HPF (0-5)
[2023-11-12 13:01] LABS: ADD URINE CULTURE? NO (NO)
[2023-11-12] MEDS ORDERED: Flagyl 500 MG PO ONE (13:10)
[2023-11-12] MEDS ORDERED: Flagyl 500 MG ONE (13:23)
[2023-11-12 13:29] VITALS: BP 124/81; O2SAT 96
== END 2023-11-12 13:34 | disposition home or self-care (01) ==
LOC: ED 10:11
DX: G89.29 Other chronic pain (principal); M54.50 Low back pain, unspecified; K52.9 Noninfective gastroenteritis and colitis, unspecified; E10.42 Type 1 diabetes mellitus with diabetic polyneuropathy; E78.5 Hyperlipidemia, unspecified; I10 Essential (primary) hypertension; Z79.4 Long term (current) use of insulin; Z79.899 Other long term (current) drug therapy; Z72.0 Tobacco use
CPT/HCPCS: 36000; 36415; 74176; 76376; 80053; 81001; 82150; 83690; 85025; 87040; 96374; 96375; 99284; J1170; A9270-GY

== ENCOUNTER 2023-12-01 12:55 | Emergency (ER) | payer OTHER ==
--- NOTE | 2023-12-01 13:07 | ERPHSYRPT ---
- History of Present Illness Time Seen by Provider: 12/01/23 13:07 Source: patient Exam Limitations: no limitations Physician History: This is an overweight 38-year-old white female has a history of hypertension and was seen at physical therapy this morning and found to have a blood pressure of 139/117. A repeat blood pressure, per patient, was 130s over 90s. They canceled the physical therapy session and patient was told to come to the emergency department. However, the patient left and went to the grocery store and went home to take the groceries and put them away and then return to the emergency department where her initial blood pressure was 139/92. Second blood pressure taken was 129/91. Patient denies chest pain. Patient chronically has shortness of breath. She saw her liability claims representative yesterday and per her report, she saw a reported D-dimer has been elevated. Patient does have pain in her right knee as well as her right calf. Patient underwent a right knee replacement and had a post operative infection followed by sepsis. Patient has a history of hypertension, gastroesophageal reflux disease, hypothyroidism, insulin-dependent diabetes and hyperlipidemia Timing/Duration: today Severity: mild Modifying Factors: Improves With: nothing Associated Symptoms: denies symptoms Allergies/Adverse Reactions: amoxicillin Allergy (Verified 12/01/23 13:16) erythromycin base Allergy (Verified 12/01/23 13:16) Home Medications: Atorvastatin Calcium [Lipitor] 20 mg PO DAILY 07/12/22 [History] Fluoxetine HCl [Prozac] 40 mg PO DAILY 07/12/22 [History] Gabapentin [Neurontin] 800 mg PO QID 07/12/22 [History] Lumateperone Tosylate [Caplyta] 42 mg PO DAILY 07/12/22 [History] Omeprazole 40 mg PO DAILY 07/12/22 [History] Doxycycline Hyclate 100 mg [Vibramycin 100 MG] 100 mg PO BID 08/11/23 [History] Metoprolol Tartrate 25 mg [Lopressor 25MG Tab] 25 mg PO BID 08/11/23 [History] Levothyroxine Sodium 1 tab PO DAILY 11/12/23 [History] AMITRIPTYLINE HCL 50 mg Tab [AMITRIPTYLINE HCL 50 mg Tablet] 50 mg PO HS 12/01/23 [History] Buspirone HCl 5 mg [Buspar 5 mg] 5 mg PO BID 12/01/23 [History] Hydroxyzine HCl 25 mg [Atarax 25 mg] 25 mg PO TID 12/01/23 [History] Insulin Glargine [Lantus Insulin] 26 unit SQ QAM 12/01/23 [History] Insulin Lispro [Humalog] 0 unit SQ UD 12/01/23 [History] modafiniL [Modafinil] 200 mg PO BID 12/01/23 [History] Hx Tetanus, Diphtheria Vaccination/Date Given: Yes Hx Influenza Vaccination/Date Given: Yes Hx Pneumococcal Vaccination/Date Given: Yes Travel Risk - International Travel Have you traveled outside of the country in past 3 weeks: No - Coronavirus Screening Are you exhibiting any of the following symptoms?: No Close contact with a COVID-19 positive Pt in past 14-21 Days: No - Vaccine Status Have you recieved a Covid-19 vaccination: Yes An/Ssn 2 4 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: [employer] - Vaccination Dates Date of 2cond Vaccination (if applicable): 2020 - Review of Systems Constitutional: No Symptoms Eyes: No Symptoms Ears, Nose, & Throat: No Symptoms Respiratory: No Symptoms Cardiac: No Symptoms Abdominal/Gastrointestinal: No Symptoms Genitourinary Symptoms: No Symptoms Musculoskeletal: Joint Pain (Chronic right knee pain and swelling post right knee replacement, followed by removal of hardware and spacer placed.) Skin: No Symptoms Neurological: No Symptoms Psychological: No Symptoms Endocrine: No Symptoms Hematologic/Lymphatic: No Symptoms Immunological/Allergic: No Symptoms All Other Systems: Reviewed and Negative - Past Medical History Pertinent Past Medical History: Yes Neurological History: Peripheral Neuropathy Cardiac History: High Cholesterol, Hypertension Endocrine Medical History: Diabetes Type I, Hypothyroidism GI Medical History: GERD, Gallbladder Disease Psycho-Social History: Anxiety, Depression, Other Other Medical History: ABSCESS OF R KNEE, SEPTIC ARTHRITIS OF R KNEE, ANEMIA, ANXIETY AND DEPRESSION, GERD, HYPOKALEMIA, OBESITY, S/P R TKR (APRIL 26, 2023), DM WITH DIABETIC NEUROPATHY, MOOD AFFECTIVE DISORDER, SAMIR'S DISEASE, NSVT, SUICIDAL IDEATION, OPEN L ANKLE FRACTURE (2019) AFTER FALLING DOWN BACK STAIR, DKA. PATIENT REPORTS A STRONG FAMILY HISTORY OF HER MOTHER REQUIRING MULTIPLE BACK SURGERIES STARTING AT A YOUNG AGE. SHE ALSO REPORT THAT SHE WAS TOLD AT THE AGE OF 20 Y.O THAT SHE NEEDED A KNEE REPLACEMENT. UNSURE OF REASON FOR RECOMMENDATION AT 20 Y.O. - Past Surgical History Past Surgical History: Yes Gastrointestinal: Cholecystectomy Musculoskeletal: Orthopedic Surgery Female Surgical History: Hysterectomy Other Surgical History: no saliva gland on rt side, carpel tunnel, bladder surgery, ankle - Social History Smoking Status: Current every day smoker Exposure to second hand smoke: Yes Drug Use: none Patient Lives Alone: No - Nursing Vital Signs Nursing Vital Signs: Initial Vital Signs Temperature 98.1 F 12/01/23 13:04 Pulse Rate 96 H 12/01/23 13:04 Blood Pressure 139/92 12/01/23 13:04 O2 Sat by Pulse Oximetry 100 12/01/23 13:04 Pain Scale Pain Intensity 10 - Physical Exam General Appearance: no apparent distress, alert, anxiety Eye Exam: PERRL/EOMI, eyes nml inspection Ears, Nose, Throat Exam: normal ENT inspection, moist mucous membranes Neck Exam: normal inspection, non-tender, supple, full range of motion Respiratory Exam: normal breath sounds, lungs clear, airway intact, No chest tenderness, No respiratory distress Cardiovascular Exam: regular rate/rhythm, normal heart sounds, normal peripheral pulses Gastrointestinal/Abdomen Exam: No tenderness Pelvic Exam: not done Rectal Exam: not done Back Exam: normal inspection, normal range of motion, No CVA tenderness, No vertebral tenderness Extremity Exam: normal inspection, normal range of motion, pelvis stable, calf tenderness (Right side), other (There is no evidence of cellulitis or infection in the region of the right anterior knee.) Neurologic Exam: alert, oriented x 3, cooperative, card maker II-XII nml as tested, normal mood/affect, nml cerebellar function, nml station & gait, sensation nml Skin Exam: normal color, warm, dry Lymphatic Exam: No adenopathy SpO2 Interpretation: normal O2 Delivery: Room Air - Course Nursing assessment & vital signs reviewed: Yes Ordered Tests: Active Orders 24 hr Category Date Time Status VENOUS UNILAT/LIMITED EXTREMIT [US] Stat Exams 12/01/23 13:40 Completed Medication Summary Discontinued Medications Generic Name Dose Route Start Last Admin Trade Name Freq PRN Reason Stop Dose Admin Hydromorphone HCl 1 mg 12/01/23 13:39 12/01/23 14:28 Hydromorphone 1 Mg/1ml Inj IM 12/01/23 13:40 1 mg STAT ONE Administration Hydromorphone HCl Confirm 12/01/23 14:25 Hydromorphone 1 Mg/1ml Inj Administered 12/01/23 14:26 Dose 1 mg .ROUTE .STK-MED ONE Ondansetron HCl 4 mg 12/01/23 13:39 12/01/23 14:27 Zofran 4 Mg/Udtablet Orally Disintegrating PO 12/01/23 13:40 4 mg STAT ONE Administration Ondansetron HCl Confirm 12/01/23 14:25 Zofran 4 Mg/Udtablet Orally Disintegrating Administered 12/01/23 14:26 Dose 4 mg .ROUTE .STK-MED ONE - Progress Progress: improved, pain not gone completely Progress Note: 12/01/23 13:46 This patient's medical issue is 1 of low complexity. The level of complexity in the workup performed is based on review of the patient's past medical history, review of the patient's medication list, review of the patient's drug allergy list, history present illness and physical findings on examination. This patient's blood pressure is not of significant concern here in the emergency department this time. She has had 2 relatively normal readings. However, she does complain of some right calf pain and she did have surgery in the right knee. She reports having seen an elevated D-dimer level yesterday and the patient's liability claims representative office. Therefore, knowing this information from the [facility], I we will order an ultrasound of the right lower extremity to evaluate for DVT. I will also provide her with a single dose of Dilaudid intramuscularly. If the ultrasound/venous Doppler of the right lower extremity negative she will be discharged home. 12/01/23 14:30 The patient's blood pressure remains in a reasonable value. There is no intervention necessary. Patient is to continue her medication as prescribed. Venous Doppler right lower extremity continues to be negative for DVT. Counseled pt/family regarding: diagnosis, need for follow-up, rad results Medical Desision Making - Independent Historian Additional History obtained from: Family - Diagnostic Testing Diagnostic test were ordered, analyzed, and reviewed by me: Yes Radiological Interpretation: Reviewed by me, Teleradiologist Report - Risk of complications Minimal Risk: Minimal risk of morbidity - Departure Departure Disposition: Home Clinical Impression: Normotensive, Right leg pain Condition: Stable Critical Care Time: No Referrals: SHANDA MATOS MD [Primary Care Provider] - Follow up/PCP as directed Additional Instructions: Continue all your medications as prescribed. Follow-up with your prescribing provider and your orthopedic surgeon for outpatient pain control.
[2023-12-01 13:16] VITALS: PULSE 96; TEMP 98.1; O2SAT 100
--- NOTE | 2023-12-01 14:20 | XRAY ---
Indication: Right leg pain. Two-dimensional sonogram and color Doppler imaging major venous vessels right leg performed. Comparison: August 11, 2023 No thrombus seen in the examined deep venous vessels right leg including greater saphenous vein. Veins demonstrate normal compressibility. Venous waveforms are normal with and without augmentation. Impression: Right leg continues to be negative for DVT.
[2023-12-01 14:25] VITALS: BP 107/74
[2023-12-01] MEDS ORDERED: ZOFRAN ODT 4 MG ONE (14:25)
[2023-12-01] MEDS ORDERED: Hydromorphone 1 mg/ml Injection ONE (14:25)
[2023-12-01] MEDS: ZOFRAN ODT 4 MG PO ONE (14:27)
[2023-12-01] MEDS: Hydromorphone 1 mg/ml Injection IM ONE (14:28)
== END 2023-12-01 14:47 | disposition home or self-care (01) ==
LOC: ED 12:55
DX: M79.604 Pain in right leg (principal); I10 Essential (primary) hypertension; E10.42 Type 1 diabetes mellitus with diabetic polyneuropathy; E78.5 Hyperlipidemia, unspecified; Z79.4 Long term (current) use of insulin; Z79.899 Other long term (current) drug therapy; Z72.0 Tobacco use
CPT/HCPCS: 93971; 96372; 99283; J1170; Q0162

== ENCOUNTER 2024-01-02 16:47 | Emergency (ER) | payer OTHER ==
[2024-01-02 17:15] VITALS: TEMP 97.5
[2024-01-02] MEDS ORDERED: MORPHINE SULFATE 4 MG INJ ONE (17:41)
[2024-01-02] MEDS ORDERED: Sodium Chloride 0.9% 1000 ML 1,000 ML ONE (17:41)
[2024-01-02] MEDS ORDERED: Zofran 4 MG/2 ML VIAL ONE (17:41)
[2024-01-02] MEDS: Zofran 4 MG/2 ML VIAL IV ONE (17:44)
[2024-01-02] MEDS: Sodium Chloride 0.9% 1000 ML 1,000 ML IV STA (17:44)
[2024-01-02] MEDS: MORPHINE SULFATE 4 MG INJ IV ONE (17:45)
--- NOTE | 2024-01-02 17:49 | ERPHSYRPT ---
- History of Present Illness Source: patient Exam Limitations: no limitations Patient Subjective Stated Complaint: Tachycardia Triage Nursing Assessment: Patient ambulated back to ED and transferred self to bed. Patient A+O X3. Patient's skin pink, warm and dry. Patient states her smart watch showed yesterday a high heart rate. Patient states today her heart rate was 165. Patient states she is having abdominal pain 7/10 with nausea. Patient is type 1 diabetic and states prior to coming to ED her BS read HI. Patient states her daughter tested + for Covid last week and she tested negative, but has had a productive cough with yellow sputum. Hx Tetanus, Diphtheria Vaccination/Date Given: Yes Hx Influenza Vaccination/Date Given: Yes Hx Pneumococcal Vaccination/Date Given: Yes Immunizations Up to Date: Yes <ALBERTINA ROSALES - Last Filed: 01/02/24 17:45> <SAMANTHA VALENTINO - Last Filed: 01/03/24 03:16> - History of Present Illness Time Seen by Provider: 01/02/24 16:48 Physician History: 38-year-old diabetic type I, Conchis thyroiditis presented in the ER with complaints of tachycardia, elevated blood sugar. Patient reports her heart rate was in 160s per her smart watch, currently in 110s. She is complaining of aches and pains all over. Patient reports she was admitted at [facility] 2 days ago with glucose above 800, was discharged next day but is still her glucose is not coming to baseline which is less than 200. It was reading high at home prior to arrival and same on arrival in the emergency room. Patient reports having cough congestion, abdominal pain with nausea but no vomiting. Denies any difficulty breathing, has a positive contact with viral illness. No fever or chills reported. Patient reports she feels weak fatigued tired and dehydrated. (ALBERTINA ROSALES) Allergies/Adverse Reactions: amoxicillin Allergy (Verified 01/02/24 17:05) erythromycin base Allergy (Verified 01/02/24 17:05) Home Medications: Atorvastatin Calcium [Lipitor] 20 mg PO DAILY 07/12/22 [History] Fluoxetine HCl [Prozac] 40 mg PO DAILY 07/12/22 [History] Gabapentin [Neurontin] 800 mg PO QID 07/12/22 [History] Lumateperone Tosylate [Caplyta] 42 mg PO DAILY 07/12/22 [History] Omeprazole 40 mg PO DAILY 07/12/22 [History] Doxycycline Hyclate 100 mg [Vibramycin 100 MG] 100 mg PO BID 08/11/23 [History] Metoprolol Tartrate 25 mg [Lopressor 25MG Tab] 25 mg PO BID 08/11/23 [History] Levothyroxine Sodium 1 tab PO DAILY 11/12/23 [History] AMITRIPTYLINE HCL 50 mg Tab [AMITRIPTYLINE HCL 50 mg Tablet] 50 mg PO HS 12/01/23 [History] Buspirone HCl 5 mg [Buspar 5 mg] 5 mg PO BID 12/01/23 [History] Hydroxyzine HCl 25 mg [Atarax 25 mg] 25 mg PO TID 12/01/23 [History] Insulin Glargine [Lantus Insulin] 26 unit SQ QAM 12/01/23 [History] Insulin Lispro [Humalog] 0 unit SQ UD 12/01/23 [History] modafiniL [Modafinil] 200 mg PO BID 12/01/23 [History] Travel Risk - International Travel Have you traveled outside of the country in past 3 weeks: No - Coronavirus Screening Are you exhibiting any of the following symptoms?: No Close contact with a COVID-19 positive Pt in past 14-21 Days: No - Vaccine Status Have you recieved a Covid-19 vaccination: Yes [employer]: [employer] - Vaccination Dates Date of 2cond Vaccination (if applicable): 2020 <ALBERTINA ROSALES - Last Filed: 01/02/24 17:45> - Review of Systems Constitutional: Fatigue, Weakness Eyes: No Symptoms Ears, Nose, & Throat: Nose Congestion, Throat Swelling Respiratory: Cough, Dyspnea Cardiac: No Symptoms Abdominal/Gastrointestinal: Abdominal Pain, Nausea Genitourinary Symptoms: No Symptoms Musculoskeletal: Myalgias Skin: No Symptoms Neurological: Headache Psychological: Anxiety Endocrine: No Symptoms Hematologic/Lymphatic: No Symptoms Immunological/Allergic: No Symptoms <ALBERTINA ROSALES - Last Filed: 01/02/24 17:45> - Past Medical History Pertinent Past Medical History: Yes Neurological History: Peripheral Neuropathy Cardiac History: High Cholesterol, Hypertension Endocrine Medical History: Diabetes Type I, Hypothyroidism GI Medical History: GERD, Gallbladder Disease Psycho-Social History: Anxiety, Depression, Other Other Medical History: ABSCESS OF R KNEE, SEPTIC ARTHRITIS OF R KNEE, ANEMIA, ANXIETY AND DEPRESSION, GERD, HYPOKALEMIA, OBESITY, S/P R TKR (APRIL 26, 2023), DM WITH DIABETIC NEUROPATHY, MOOD AFFECTIVE DISORDER, CONCHIS'S DISEASE, NSVT, SUICIDAL IDEATION, OPEN L ANKLE FRACTURE (2019) AFTER FALLING DOWN BACK STAIR, DKA. PATIENT REPORTS A STRONG FAMILY HISTORY OF HER MOTHER REQUIRING MULTIPLE BACK SURGERIES STARTING AT A YOUNG AGE. SHE ALSO REPORT THAT SHE WAS TOLD AT THE AGE OF 20 Y.O THAT SHE NEEDED A KNEE REPLACEMENT. UNSURE OF REASON FOR RECOMME NDATION AT 20 Y.O. - Past Surgical History Past Surgical History: Yes Gastrointestinal: Cholecystectomy Musculoskeletal: Orthopedic Surgery Female Surgical History: Hysterectomy Other Surgical History: no saliva gland on rt side, carpel tunnel, bladder surgery, ankle - Social History Smoking Status: Current every day smoker How long have you smoked: years Exposure to second hand smoke: Yes Drug Use: none Patient Lives Alone: No - Female History Hx Last Menstrual Period: hysterectomy Hx Now: No <ALBERTINA ROSALES - Last Filed: 01/02/24 17:45> - Physical Exam General Appearance: no apparent distress, alert, anxiety Eye Exam: PERRL/EOMI Ears, Nose, Throat Exam: TMs normal, pharyngeal erythema Neck Exam: normal inspection, non-tender, supple, full range of motion Respiratory Exam: normal breath sounds, lungs clear Cardiovascular Exam: normal heart sounds, tachycardia Gastrointestinal/Abdomen Exam: soft, normal bowel sounds, tenderness (Mild generalized) Back Exam: normal inspection Extremity Exam: normal inspection, normal range of motion Neurologic Exam: alert, oriented x 3, cooperative, social professionals II-XII nml as tested Skin Exam: normal color SpO2 Interpretation: normal SpO2: 100 O2 Delivery: Room Air <ALBERTINA ROSALES - Last Filed: 01/02/24 17:45> - Nursing Vital Signs Nursing Vital Signs: Initial Vital Signs Temperature 97.5 F 01/02/24 17:06 Pulse Rate 122 H 01/02/24 17:06 Respiratory Rate 29 H 01/02/24 17:06 Blood Pressure 169/100 01/02/24 17:06 O2 Sat by Pulse Oximetry 100 01/02/24 17:06 Pain Scale Pain Intensity 8 - Course EKG Interpreted by Me: RATE ([id number]), Sinus Tach, NORMAL AXIS, NORMAL INTERVALS, NORMAL QRS <CONNIEALBERTINA - Last Filed: 01/02/24 17:45> - CT Exams Abdomen/Pelvis CT Interpretation: Tele-radiologist Report (No acute abnormality is seen. See rest of report.) Chest CT Interpretation: Tele-radiologist Report (Small subpleural ground glass opacitiesare seen within the right lower lobe superior segment, may represent an early infectious process.) <THIENSAMANTHA CLANCY - Last Filed: 01/03/24 03:16> Ordered Tests: Active Orders 24 hr Category Date Time Status IV Insertion STAT Care 01/02/24 17:41 Active IV Insertion-2nd Peripheral STAT Care 01/02/24 17:41 Active POCT Glucose Check STAT Care 01/02/24 17:13 Active ABDOMEN AND PELVIS W/0 CONTRAS [CT] Stat Exams 01/02/24 17:29 Completed CHEST WITHOUT CONTRAST [CT] Stat Exams 01/02/24 17:29 Taken AMYLASE Stat Lab 01/02/24 17:30 Completed ARTERIAL BLOOD GASES Urgent Lab 01/02/24 17:31 Results BLOOD CULTURE Stat Lab 01/02/24 17:32 Received CBC W DIFF Stat Lab 01/02/24 17:41 Completed CMP Stat Lab 01/02/24 17:41 Completed CULTURE,SPUTUM Stat Lab 01/03/24 02:41 Ordered HCG QUALITATIVE, URINE Stat Lab 01/02/24 17:41 Completed LIPASE Stat Lab 01/02/24 17:41 Completed MAGNESIUM Stat Lab 01/02/24 17:41 Completed POCT GLUCOSE Stat Lab 01/02/24 19:49 Completed POCT GLUCOSE Stat Lab 01/02/24 21:59 Completed POCT GLUCOSE Stat Lab 01/02/24 22:39 Completed POCT GLUCOSE Stat Lab 01/02/24 23:36 Completed TROPONIN Q4H Lab 01/02/24 17:41 Completed TROPONIN Q4H Lab 01/02/24 20:20 Completed TROPONIN Q4H Lab 01/03/24 02:09 Completed UA W/RFX UR CULTURE Stat Lab 01/02/24 17:41 Completed Respiratory Therapy Assessment DAILY RT 01/03/24 03:05 Active Medication Summary Generic Name Dose Route Start Last Admin Trade Name Freq PRN Reason Stop Dose Admin Clindamycin HCl/Dextrose 900 mg in 50 mls @ 100 mls/hr 01/03/24 02:40 Clindamycin-D5w 900 Mg/50 Ml IV 01/03/24 03:09 STAT STA Discontinued Medications Generic Name Dose Route Start Last Admin Trade Name Freq PRN Reason Stop Dose Admin Al Hydrox/Mg Hydrox/Simethicone Confirm 01/02/24 18:46 Mag Hydrox/Al Hydrox/Simeth 30 Ml Udcup Administered 01/02/24 18:47 Dose 30 ml .ROUTE .STK-MED ONE Albuterol Sulfate 2.5 mg 01/03/24 02:40 01/03/24 03:01 Albuterol Sulfate 2.5 Mg/3 Ml Neb IH 01/03/24 02:41 2.5 mg STAT ONE Administration Albuterol Sulfate Confirm 01/03/24 03:00 Albuterol Sulfate 2.5 Mg/3 Ml Neb Administered 01/03/24 03:01 Dose 2.5 mg IH .STK-MED ONE Sodium Chloride 1,000 mls @ 999 mls/hr 01/02/24 17:30 01/02/24 18:52 Sodium Chloride 0.9% 1000 Ml IV 01/02/24 18:30 Infused .Q1H1M STA Infusion Sodium Chloride Confirm 01/02/24 17:41 Sodium Chloride 0.9% 1000 Ml Administered 01/02/24 17:42 Dose 1,000 mls @ ud .ROUTE .STK-MED ONE INSULIN REGULAR IN 0.9 % NACL 100 unit in 100 mls @ 9.979 mls/hr 01/02/24 18:49 01/02/24 21:59 Myxredlin 100 Unit/100 Ml Bag IV 02/01/24 18:48 0 unit/kg/hr .Q10H2M PRN 0 mls/hr HYPERGLYCEMIA Titration Protocol 0.1 UNIT/KG/HR INSULIN REGULAR IN 0.9 % NACL Confirm 01/02/24 19:52 Myxredlin 100 Unit/100 Ml Bag Administered 01/02/24 19:53 Dose 100 unit in 100 mls @ ud IV .STK-MED ONE Insulin Human Lispro Confirm 01/02/24 19:51 Insulin Lispro 1 Unit Administered 01/02/24 19:52 Dose 10 unit .ROUTE .STK-MED ONE Insulin Human Regular 10 unit 01/02/24 18:49 01/02/24 20:04 Insulin Regular, Human 1 Unit IV 01/02/24 18:50 10 unit STAT ONE Administration Insulin Human Regular Confirm 01/02/24 20:03 Insulin Regular, Human 1 Unit Administered 01/02/24 20:04 Dose 10 unit .ROUTE .STK-MED ONE Ketorolac Tromethamine 15 mg 01/02/24 21:04 01/02/24 22:02 Ketorolac Tromethamine 30 Mg/Ml Inj IV 01/02/24 21:05 Not Given STAT ONE Ketorolac Tromethamine Confirm 01/02/24 21:54 Ketorolac Tromethamine 30 Mg/Ml Inj Administered 01/02/24 21:55 Dose 30 mg .ROUTE .STK-MED ONE Lidocaine HCl Confirm 01/02/24 18:46 Lidocaine Hcl 2% Viscous 15 Ml Udcup Administered 01/02/24 18:47 Dose 15 ml .ROUTE .STK-MED ONE Lorazepam 1 mg 01/02/24 20:44 01/02/24 21:06 Lorazepam 2 Mg/1 Ml 2 Mg Vial IV 01/02/24 20:45 1 mg STAT ONE Administration Lorazepam Confirm 01/02/24 21:05 Lorazepam 2 Mg/1 Ml 2 Mg Vial Administered 01/02/24 21:06 Dose 2 mg .ROUTE .STK-MED ONE Magnesium Hydroxide 45 ml 01/02/24 18:37 01/02/24 18:49 Mag Hydrx/Alum Hyd/Simeth/Lido 45 Ml Bottle PO 01/02/24 18:38 45 ml STAT ONE Administration Morphine Sulfate 4 mg 01/02/24 17:31 01/02/24 17:45 Morphine Sulfate 4 Mg/Ml Injection IV 01/02/24 17:32 4 mg STAT ONE Administration Morphine Sulfate Confirm 01/02/24 17:41 Morphine Sulfate 4 Mg/Ml Injection Administered 01/02/24 17:42 Dose 4 mg .ROUTE .STK-MED ONE Morphine Sulfate 2 mg 01/02/24 23:43 01/03/24 00:26 Morphine Sulfate 2 Mg/Ml Inj IV 01/02/24 23:44 2 mg STAT ONE Administration Morphine Sulfate Confirm 01/03/24 00:21 Morphine Sulfate 2 Mg/Ml Inj Administered 01/03/24 00:22 Dose 2 mg .ROUTE .STK-MED ONE Ondansetron HCl 4 mg 01/02/24 17:30 01/02/24 17:44 Ondansetron Hcl 4 Mg/2 Ml Vial IV 01/02/24 17:31 4 mg STAT ONE Administration Ondansetron HCl Confirm 01/02/24 17:41 Ondansetron Hcl 4 Mg/2 Ml Vial Administered 01/02/24 17:42 Dose 4 mg .ROUTE .STK-[facility] ONE Pantoprazole Sodium 40 mg 01/02/24 18:37 01/02/24 18:49 Pantoprazole 40 Mg Vial IV 01/02/24 18:38 40 mg STAT ONE Administration Pantoprazole Sodium Confirm 01/02/24 18:45 Pantoprazole 40 Mg Vial Administered 01/02/24 18:46 Dose 40 mg IV .K-[facility] ONE Lab/Rad Data: Laboratory Result Diagrams 01/02/24 17:41 01/02/24 17:41 Laboratory Results 01/03/24 01/02/24 01/02/24 Range/Units 02:09 23:36 22:39 WBC (4.0-10.5) x10^3/uL RBC (4.1-5.4) x10^6/uL Hgb (12.0-16.0) g/dL Hct (35-47) % MCV (78-100) fL MCH (26-32) pg MCHC (32-36) g/dL RDW (11.5-14.0) % Plt Count (150-450) x10^3/uL MPV (7.5-11.0) fL Gran % (36.0-66.0) % Immature Gran % (Auto) (0.00-0.4) % Nucleat RBC Rel Count (0.00-0.1) % Eos # (Auto) (0-0.5) x10^3/uL Immature Gran # (Auto) (0.00-0.03) x10^3u/L Absolute Lymphs (auto) (1.0-4.6) x10^3/uL Absolute Monos (auto) (0.0-1.3) x10^3/uL Absolute Nucleated RBC (0.00-0.01) x10^3u/L Lymphocytes % (24.0-44.0) % Monocytes % (0.0-12.0) % Eosinophils % (0.00-5.0) % Basophils % (0.0-0.4) % Absolute Granulocytes (1.4-6.9) x10^3/uL Basophils # (0-0.4) x10^3/uL Puncture Site pCO2 (35-45) mmHg pO2 (75-100) mmHg Base Excess (-2.0-2.0) O2 Saturation (94-100) g/dF ABG pH (7.35-7.45) ABG HCO3 (22-28) ABG O2 Sat (Measured) (95-100) % Shan Test A-a Gradient a/A Ratio Hemoglobin Carboxyhemoglobin (0.0-6.9) % THgb Methemoglobin (1.4-1.5) % Potassium (3.5-5.1) Temperature C POC O2 Flow Rate % Sodium (135-145) mmol/L Chloride (98-107) mmol/L Carbon Dioxide (22-30) mmol/L Anion Gap (5-15) MEQ/L BUN (7-17) mg/dL Creatinine (0.52-1.04) mg/dL Estimated GFR ML/MIN Glucose (74-106) mg/dL POC Glucometer 161 H 142 H (50 to 500) mg/dL Calcium (8.4-10.2) mg/dL Magnesium (1.6-2.3) mg/dL Total Bilirubin (0.2-1.3) mg/dL AST (14-36) U/L ALT (0-35) U/L Alkaline Phosphatase (38-126) U/L Troponin I < 0.012 (0.000-0.034) ng/mL Serum Total Protein (6.3-8.2) g/dL Albumin (3.5-5.0) g/dL Amylase (30-110) U/L Lipase (23-300) U/L Urine Color (Yellow) Urine Appearance (Clear) Urine pH (4.6-8.0) Ur Specific [place] (1.005-1.030) Urine Protein (Negative) Urine Glucose (UA) (Negative) mg/dL Urine Ketones (Negative) Urine Blood (Negative) Urine Nitrite (Negative) Urine Bilirubin (Negative) Urine Urobilinogen (0.2) mg/dL Ur Leukocyte Esterase (Negative) U Hyaline Cast (Auto) (0-2) /LPF Urine Microscopic RBC (0-5) /HPF Urine Microscopic WBC (0-5) /HPF Ur Epithelial Cells (None Seen) /HPF Urine Bacteria (None Seen) /HPF Urine Culture Reflexed (NO) Urine HCG, Qual (NEGATIVE) 01/02/24 01/02/24 01/02/24 Range/Units 21:59 20:20 19:49 WBC (4.0-10.5) x10^3/uL RBC (4.1-5.4) x10^6/uL Hgb (12.0-16.0) g/dL Hct (35-47) % MCV (78-100) fL MCH (26-32) pg MCHC (32-36) g/dL RDW (11.5-14.0) % Plt Count (150-450) x10^3/uL MPV (7.5-11.0) fL Gran % (36.0-66.0) % Immature Gran % (Auto) (0.00-0.4) % Nucleat RBC Rel Count (0.00-0.1) % Eos # (Auto) (0-0.5) x10^3/uL Immature Gran # (Auto) (0.00-0.03) x10^3u/L Absolute Lymphs (auto) (1.0-4.6) x10^3/uL Absolute Monos (auto) (0.0-1.3) x10^3/uL Absolute Nucleated RBC (0.00-0.01) x10^3u/L Lymphocytes % (24.0-44.0) % Monocytes % (0.0-12.0) % Eosinophils % (0.00-5.0) % Basophils % (0.0-0.4) % Absolute Granulocytes (1.4-6.9) x10^3/uL Basophils # (0-0.4) x10^3/uL Puncture Site pCO2 (35-45) mmHg pO2 (75-100) mmHg Base Excess (-2.0-2.0) O2 Saturation (94-100) g/dF ABG pH (7.35-7.45) ABG HCO3 (22-28) ABG O2 Sat (Measured) (95-100) % Shan Test A-a Gradient a/A Ratio Hemoglobin Carboxyhemoglobin (0.0-6.9) % THgb Methemoglobin (1.4-1.5) % Potassium (3.5-5.1) Temperature C POC O2 Flow Rate % Sodium (135-145) mmol/L Chloride (98-107) mmol/L Carbon Dioxide (22-30) mmol/L Anion Gap (5-15) MEQ/L BUN (7-17) mg/dL Creatinine (0.52-1.04) mg/dL Estimated GFR ML/MIN Glucose (74-106) mg/dL POC Glucometer 152 H 554 H* (50 to 500) mg/dL Calcium (8.4-10.2) mg/dL Magnesium (1.6-2.3) mg/dL Total Bilirubin (0.2-1.3) mg/dL AST (14-36) U/L ALT (0-35) U/L Alkaline Phosphatase (38-126) U/L Troponin I < 0.012 (0.000-0.034) ng/mL Serum Total Protein (6.3-8.2) g/dL Albumin (3.5-5.0) g/dL Amylase (30-110) U/L Lipase (23-300) U/L Urine Color (Yellow) Urine Appearance (Clear) Urine pH (4.6-8.0) Ur Specific [place] (1.005-1.030) Urine Protein (Negative) Urine Glucose (UA) (Negative) mg/dL Urine Ketones (Negative) Urine Blood (Negative) Urine Nitrite (Negative) Urine Bilirubin (Negative) Urine Urobilinogen (0.2) mg/dL Ur Leukocyte Esterase (Negative) U Hyaline Cast (Auto) (0-2) /LPF Urine Microscopic RBC (0-5) /HPF Urine Microscopic WBC (0-5) /HPF Ur Epithelial Cells (None Seen) /HPF Urine Bacteria (None Seen) /HPF Urine Culture Reflexed (NO) Urine HCG, Qual (NEGATIVE) 01/02/24 01/02/24 01/02/24 Range/Units 17:41 17:41 17:41 WBC (4.0-10.5) x10^3/uL RBC (4.1-5.4) x10^6/uL Hgb (12.0-16.0) g/dL Hct (35-47) % MCV (78-100) fL MCH (26-32) pg MCHC (32-36) g/dL RDW (11.5-14.0) % Plt Count (150-450) x10^3/uL MPV (7.5-11.0) fL Gran % (36.0-66.0) % Immature Gran % (Auto) (0.00-0.4) % Nucleat RBC Rel Count (0.00-0.1) % Eos # (Auto) (0-0.5) x10^3/uL Immature Gran # (Auto) (0.00-0.03) x10^3u/L Absolute Lymphs (auto) (1.0-4.6) x10^3/uL Absolute Monos (auto) (0.0-1.3) x10^3/uL Absolute Nucleated RBC (0.00-0.01) x10^3u/L Lymphocytes % (24.0-44.0) % Monocytes % (0.0-12.0) % Eosinophils % (0.00-5.0) % Basophils % (0.0-0.4) % Absolute Granulocytes (1.4-6.9) x10^3/uL Basophils # (0-0.4) x10^3/uL Puncture Site pCO2 (35-45) mmHg pO2 (75-100) mmHg Base Excess (-2.0-2.0) O2 Saturation (94-100) g/dF ABG pH (7.35-7.45) ABG HCO3 (22-28) ABG O2 Sat (Measured) (95-100) % Shan Test A-a Gradient a/A Ratio Hemoglobin Carboxyhemoglobin (0.0-6.9) % THgb Methemoglobin (1.4-1.5) % Potassium (3.5-5.1) Temperature C POC O2 Flow Rate % Sodium (135-145) mmol/L Chloride (98-107) mmol/L Carbon Dioxide (22-30) mmol/L Anion Gap (5-15) MEQ/L BUN (7-17) mg/dL Creatinine (0.52-1.04) mg/dL Estimated GFR ML/MIN Glucose (74-106) mg/dL POC Glucometer (50 to 500) mg/dL Calcium (8.4-10.2) mg/dL Magnesium (1.6-2.3) mg/dL Total Bilirubin (0.2-1.3) mg/dL AST (14-36) U/L ALT (0-35) U/L Alkaline Phosphatase (38-126) U/L Troponin I < 0.012 (0.000-0.034) ng/mL Serum Total Protein (6.3-8.2) g/dL Albumin (3.5-5.0) g/dL Amylase (30-110) U/L Lipase (23-300) U/L Urine Color Yellow (Yellow) Urine Appearance Clear (Clear) Urine pH 5.0 (4.6-8.0) Ur Specific [place] >=1.030 A (1.005-1.030) Urine Protein Negative (Negative) Urine Glucose (UA) >=1000 A (Negative) mg/dL Urine Ketones Negative (Negative) Urine Blood Negative (Negative) Urine Nitrite Negative (Negative) Urine Bilirubin Negative (Negative) Urine Urobilinogen 0.2 (0.2) mg/dL Ur Leukocyte Esterase Negative (Negative) U Hyaline Cast (Auto) NONE SEEN (0-2) /LPF Urine Microscopic RBC 0-2 (0-5) /HPF Urine Microscopic WBC 0-2 (0-5) /HPF Ur Epithelial Cells None Seen (None Seen) /HPF Urine Bacteria None Seen (None Seen) /HPF Urine Culture Reflexed NO (NO) Urine HCG, Qual NEGATIVE (NEGATIVE) 01/02/24 01/02/24 01/02/24 Range/Units 17:41 17:41 17:31 WBC 4.4 (4.0-10.5) x10^3/uL RBC 4.01 L (4.1-5.4) x10^6/uL Hgb 11.4 L (12.0-16.0) g/dL Hct 35.5 (35-47) % MCV 88.5 (78-100) fL MCH 28.4 (26-32) pg MCHC 32.1 (32-36) g/dL RDW 15.3 H (11.5-14.0) % Plt Count 183 (150-450) x10^3/uL MPV 13.1 H (7.5-11.0) fL Gran % 63.2 (36.0-66.0) % Immature Gran % (Auto) 0.0 (0.00-0.4) % Nucleat RBC Rel Count 0.0 (0.00-0.1) % Eos # (Auto) 0 (0-0.5) x10^3/uL Immature Gran # (Auto) 0.00 (0.00-0.03) x10^3u/L Absolute Lymphs (auto) 1.30 (1.0-4.6) x10^3/uL Absolute Monos (auto) 0.31 (0.0-1.3) x10^3/uL Absolute Nucleated RBC 0.00 (0.00-0.01) x10^3u/L Lymphocytes % 29.3 (24.0-44.0) % Monocytes % 7.0 (0.0-12.0) % Eosinophils % 0.0 (0.00-5.0) % Basophils % 0.5 (0.0-0.4) % Absolute Granulocytes 2.81 (1.4-6.9) x10^3/uL Basophils # 0.02 (0-0.4) x10^3/uL Puncture Site Pending pCO2 23 L (35-45) mmHg pO2 115 H (75-100) mmHg Base Excess -6.4 L (-2.0-2.0) O2 Saturation 93.9 L (94-100) g/dF ABG pH 7.45 (7.35-7.45) ABG HCO3 16.0 L* (22-28) ABG O2 Sat (Measured) 98.4 (95-100) % Shan Test Pending A-a Gradient 6 a/A Ratio 0.95 Hemoglobin 11.5 Carboxyhemoglobin 3.5 (0.0-6.9) % THgb Methemoglobin 1.0 L (1.4-1.5) % Potassium 4.1 4.8 (3.5-5.1) Temperature 37.0 C POC O2 Flow Rate 21 % Sodium 129 L (135-145) mmol/L Chloride 97 L (98-107) mmol/L Carbon Dioxide 18 L (22-30) mmol/L Anion Gap 17.8 H (5-15) MEQ/L BUN 12 (7-17) mg/dL Creatinine 0.82 (0.52-1.04) mg/dL Estimated GFR 93.3 ML/MIN Glucose 733 H* (74-106) mg/dL POC Glucometer (50 to 500) mg/dL Calcium 9.5 (8.4-10.2) mg/dL Magnesium 1.7 (1.6-2.3) mg/dL Total Bilirubin 0.30 (0.2-1.3) mg/dL AST 17 (14-36) U/L ALT 19 (0-35) U/L Alkaline Phosphatase 218 H (38-126) U/L Troponin I (0.000-0.034) ng/mL Serum Total Protein 7.3 (6.3-8.2) g/dL Albumin 4.5 (3.5-5.0) g/dL Amylase (30-110) U/L Lipase 143 (23-300) U/L Urine Color (Yellow) Urine Appearance (Clear) Urine pH (4.6-8.0) Ur Specific [place] (1.005-1.030) Urine Protein (Negative) Urine Glucose (UA) (Negative) mg/dL Urine Ketones (Negative) Urine Blood (Negative) Urine Nitrite (Negative) Urine Bilirubin (Negative) Urine Urobilinogen (0.2) mg/dL Ur Leukocyte Esterase (Negative) U Hyaline Cast (Auto) (0-2) /LPF Urine Microscopic RBC (0-5) /HPF Urine Microscopic WBC (0-5) /HPF Ur Epithelial Cells (None Seen) /HPF Urine Bacteria (None Seen) /HPF Urine Culture Reflexed (NO) Urine HCG, Qual (NEGATIVE) 01/02/24 Range/Units 17:30 WBC (4.0-10.5) x10^3/uL RBC (4.1-5.4) x10^6/uL Hgb (12.0-16.0) g/dL Hct (35-47) % MCV (78-100) fL MCH (26-32) pg MCHC (32-36) g/dL RDW (11.5-14.0) % Plt Count (150-450) x10^3/uL MPV (7.5-11.0) fL Gran % (36.0-66.0) % Immature Gran % (Auto) (0.00-0.4) % Nucleat RBC Rel Count (0.00-0.1) % Eos # (Auto) (0-0.5) x10^3/uL Immature Gran # (Auto) (0.00-0.03) x10^3u/L Absolute Lymphs (auto) (1.0-4.6) x10^3/uL Absolute Monos (auto) (0.0-1.3) x10^3/uL Absolute Nucleated RBC (0.00-0.01) x10^3u/L Lymphocytes % (24.0-44.0) % Monocytes % (0.0-12.0) % Eosinophils % (0.00-5.0) % Basophils % (0.0-0.4) % Absolute Granulocytes (1.4-6.9) x10^3/uL Basophils # (0-0.4) x10^3/uL Puncture Site pCO2 (35-45) mmHg pO2 (75-100) mmHg Base Excess (-2.0-2.0) O2 Saturation (94-100) g/dF ABG pH (7.35-7.45) ABG HCO3 (22-28) ABG O2 Sat (Measured) (95-100) % Shan Test A-a Gradient a/A Ratio Hemoglobin Carboxyhemoglobin (0.0-6.9) % THgb Methemoglobin (1.4-1.5) % Potassium (3.5-5.1) Temperature C POC O2 Flow Rate % Sodium (135-145) mmol/L Chloride (98-107) mmol/L Carbon Dioxide (22-30) mmol/L Anion Gap (5-15) MEQ/L BUN (7-17) mg/dL Creatinine (0.52-1.04) mg/dL Estimated GFR ML/MIN Glucose (74-106) mg/dL POC Glucometer (50 to 500) mg/dL Calcium (8.4-10.2) mg/dL Magnesium (1.6-2.3) mg/dL Total Bilirubin (0.2-1.3) mg/dL AST (14-36) U/L ALT (0-35) U/L Alkaline Phosphatase (38-126) U/L Troponin I (0.000-0.034) ng/mL Serum Total Protein (6.3-8.2) g/dL Albumin (3.5-5.0) g/dL Amylase 53 (30-110) U/L Lipase (23-300) U/L Urine Color (Yellow) Urine Appearance (Clear) Urine pH (4.6-8.0) Ur Specific [place] (1.005-1.030) Urine Protein (Negative) Urine Glucose (UA) (Negative) mg/dL Urine Ketones (Negative) Urine Blood (Negative) Urine Nitrite (Negative) Urine Bilirubin (Negative) Urine Urobilinogen (0.2) mg/dL Ur Leukocyte Esterase (Negative) U Hyaline Cast (Auto) (0-2) /LPF Urine Microscopic RBC (0-5) /HPF Urine Microscopic WBC (0-5) /HPF Ur Epithelial Cells (None Seen) /HPF Urine Bacteria (None Seen) /HPF Urine Culture Reflexed (NO) Urine HCG, Qual (NEGATIVE) <ALBERTINA ROSALES - Last Filed: 01/02/24 17:45> - Progress Progress: improved Counseled pt/family regarding: lab results, diagnosis, need for follow-up, rad results <SAMANTHA VALENTINO - Last Filed: 01/03/24 03:16> - Progress Progress Note: 01/02/24 18:58 38-year-old is evaluated for cough congestion, abdominal pain along with body aches and elevated glucose. She is given fluid bolus and symptomatic treatment, broad workup is ordered/pending, care is transferred to Dr. Valentino at end of my shift for reevaluation, interpretation of workup, management and final disposition. (ALBERTINA ROSALES) 01/02/24 20:[address] Valentino @ 2018: perrl, eomi, pharynx slightly erythematous, lungs clear, tachycardia, abdominal B.S. normal, anxious, cooperative. (SAMANTHA VALENTINO) Medical Desision Making - Diagnostic Testing Diagnostic test were ordered, analyzed, and reviewed by me: Yes Radiological Interpretation: Teleradiologist Report <SAMANTHA VALENTINO - Last Filed: 01/03/24 03:16> <ALBERTINA ROSALES - Last Filed: 01/02/24 17:45> - Departure Departure Disposition: Home Critical Care Time: No <SAMANTHA VALENTINO - Last Filed: 01/03/24 03:16> - Departure Clinical Impression: pneumonia, Hyperglycemia, Diabetes, Abdominal pain, Tachycardia Condition: Stable Referrals: SHANDA MATOS MD [Primary Care Provider] - Follow up/PCP as directed Instructions: Tachycardia (DC), Pneumonia in adults Additional Instructions: Follow up with private doctor tomorrow. Forms: Work/School Release Form Prescriptions: Guaifenesin/Dextromethorphan [Robitussin Cough-Chest Dm Liq] 10 ml PO Q4H PRN PRN #120 ml PRN Reason: Cough clindamycin HCL [Clindamycin HCl] 300 mg PO Q6H #40 cap Albuterol 2.5 mg/0.5 ml [PROVENTIL Solution 2.5 MG/0.5 ML] 2.5 mg IH Q4H #25
[2024-01-02 17:54] LABS: A-aADO2 6; ABG HEMOGLOBIN 11.5; ABG POTASSIUM 4.8 (3.5-5.1); ARTERIAL BLD GAS O2 SATURATION 98.4 % (95-100); ARTERIAL BLOOD GAS BASE EXCESS -6.4 (-2.0-2.0); ARTERIAL BLOOD GAS FIO2 21 %; ARTERIAL BLOOD GAS PCO2 23 mmHg (35-45); ARTERIAL BLOOD GAS PO2 115 mmHg (75-100); ARTERIAL BLOOD GAS pH 7.45 (7.35-7.45); CARBOXYHEMOGLOBIN 3.5 % THgb (0.0-6.9); HGB O2 SAT 93.9 g/dF (94-100); paO2 pAO1 0.95
[2024-01-02 18:10] LABS: Absolute Neutrophil Ct (ANC) 2.81 x10^3/uL (1.4-6.9); BASOPHIL % 0.5 % (0.0-0.4); Basophil (Absolute #) 0.02 x10^3/uL (0-0.4); Eosinophil (Absolute #) 0 x10^3/uL (0-0.5); Hematocrit 35.5 % (35-47); Hemoglobin 11.4 g/dL (12.0-16.0); Lymphocytes % 29.3 % (24.0-44.0); Mean Cell Volume 88.5 fL (78-100); Mean Corpuscular Hemoglobin 28.4 pg (26-32); Mean Corpuscular Hgb Concent. 32.1 g/dL (32-36); Mean Platelet Volume 13.1 fL (7.5-11.0); Monocyte (Absolute #) 0.31 x10^3/uL (0.0-1.3); Neutrophil % 63.2 % (36.0-66.0); Platelet Count 183 x10^3/uL (150-450); Red Blood Count 4.01 x10^6/uL (4.1-5.4); Red Cell Distribution Width 15.3 % (11.5-14.0); White Blood Count 4.4 x10^3/uL (4.0-10.5)
[2024-01-02 18:16] LABS: HCG URINE TEST NEGATIVE (NEGATIVE)
[2024-01-02 18:19] LABS: ALBUMIN 4.5 g/dL (3.5-5.0); ANION GAP 17.8 MEQ/L (5-15); BILIRUBIN,TOTAL 0.3 mg/dL (0.2-1.3); Calcium 9.5 mg/dL (8.4-10.2); Creatinine 1 0.82 mg/dL (0.52-1.04); EST GLOMERULAR FILTRATION RATE 93.3 ML/MIN; MAGNESIUM 1.7 mg/dL (1.6-2.3); Potassium 4.1 mmol/L (3.5-5.1); Total Protein 7.3 g/dL (6.3-8.2)
[2024-01-02 18:22] LABS: Appearance Clear (Clear); Bacteria None Seen /HPF (None Seen); Bilirubin Negative (Negative); Blood Negative (Negative); Epithelial Cells None Seen /HPF (None Seen); Glucose, Urine >=1000 mg/dL (Negative); Hyaline Casts NONE SEEN /LPF (0-2); Ketones Negative (Negative); Leukocyte Esterase Negative (Negative); Nitrite Negative (Negative); Protein,Urine Dip Negative (Negative); RBC 0-2 /HPF (0-5); Specific Gravity >=1.030 (1.005-1.030); Urobilinogen 0.2 mg/dL (0.2); WBC 0-2 /HPF (0-5)
[2024-01-02 18:23] LABS: ADD URINE CULTURE? NO (NO)
--- NOTE | 2024-01-02 18:38 | XRAY ---
CLINICAL HISTORY: cough/abd pain TECHNIQUE: An axial CT scan of the abdomen and pelvis was performed without IV contrast, Coronal and sagittal reconstructive images were also obtained. COMPARISON: None. FINDINGS: Abdomen: The liver is normal in size without focal parenchymal abnormality. The intrahepatic biliary radicals and the bile ducts are normal. Gallbladder is not seen, status postcholecystectomy. The spleen, pancreas, adrenal glands are unremarkable. The kidneys are unremarkable. They are normal in size and shape. No calculi or hydronephrosis is seen. The ascending colon, the transverse colon, the descending colon, visualized small bowel loops are unremarkable. There is no evidence of significant enlargement of the mesenteric or retroperitoneal lymph nodes. The osseous structures in the lower rib cage and lumbar spine show no abnormality. The appendix is unremarkable. A small fat-filled umbilical hernia is noted. Pelvis: Multiple diverticula are seen in the sigmoid colon. The urinary bladder is unremarkable. The pelvic vasculature is unremarkable. No evidence of pelvic lymphadenopathy. Bilateral mild subchondral sclerosis of the sacroiliac joints at the iliac sides along with air densities within the joints. IMPRESSION: 1. No acute abnormality is seen 2. Colonic diverticulosis with no signs of diverticulitis 3. Bilateral mild subchondral sclerosis of the sacroiliac joints at the iliac sides, along with air densities within the joints, may represent bilateral sacroiliitis, for clinical correlation Electronically Signed by: Pete Arvizu MD. (01/02/2024 18:34:52 EDT)
[2024-01-02] MEDS ORDERED: PROTONIX 40 MG IV IV ONE (18:45)
[2024-01-02] MEDS ORDERED: MAALOX ES 30 ML UNIT DOSE ONE (18:46)
[2024-01-02] MEDS ORDERED: XYLOCAINE VISCOUS 2% 15 ML CUP ONE (18:46)
[2024-01-02] MEDS: GI COCKTAIL 45 ML (Maalox/Lidocaine) PO ONE (18:49)
[2024-01-02] MEDS: PROTONIX 40 MG IV IV ONE (18:49)
[2024-01-02] MEDS ORDERED: HUMALOG ONE (19:51)
[2024-01-02] MEDS ORDERED: MYXREDLIN 100 UNIT/100 ML BAG 100 UNIT/100 ML PLAST..BAG IV ONE (19:52)
[2024-01-02] MEDS: MYXREDLIN 100 UNIT/100 ML BAG 100 UNIT/100 ML PLAST..BAG IV PRN (19:59)
[2024-01-02] MEDS ORDERED: HUMULIN R ONE (20:03)
[2024-01-02] MEDS: HUMULIN R IV ONE (20:04)
[2024-01-02] MEDS ORDERED: Ativan 2 MG/1 ML VIAL ONE (21:05)
[2024-01-02] MEDS: Ativan 2 MG/1 ML VIAL IV ONE (21:06)
[2024-01-02] MEDS ORDERED: TORAdol 30 mg Injection ONE (21:54)
[2024-01-02] MEDS: TORAdol 30 mg Injection IV ONE (21:55)
[2024-01-03] MEDS ORDERED: MORPHINE SULFATE 2 MG INJ ONE (00:21)
[2024-01-03] MEDS: MORPHINE SULFATE 2 MG INJ IV ONE (00:26)
[2024-01-03] MEDS ORDERED: PROVENTIL 2.5 MG/3 ML NEB IH ONE (03:00)
[2024-01-03] MEDS: PROVENTIL 2.5 MG/3 ML NEB IH ONE (03:01)
[2024-01-03] MEDS ORDERED: CLINDAMYCIN-D5W 900 MG/50 ML*** 900 MG/50 ML BAG IV ONE (03:21)
[2024-01-03] MEDS: CLINDAMYCIN-D5W 900 MG/50 ML*** 900 MG/50 ML BAG IV STA (03:23)
[2024-01-03] MEDS: Robitussin-Dm Syrup PO ONE (04:33)
[2024-01-03 05:09] VITALS: BP 130/94; PULSE 98; RESP 20; O2SAT 96
[2024-01-03 05:11] LABS: ABG SITE rr
[2024-01-03 05:12] LABS: ALLEN TEST OK? yes
--- NOTE | 2024-01-03 08:48 | XRAY ---
CLINICAL HISTORY: cough/abd pain TECHNIQUE: Contiguous axial CT images of the chest were acquired without intravenous contrast. Coronal and sagittal reconstructions were obtained. Images were sent to PACs for interpretation. COMPARISON: None. FINDINGS: Small subpleural ground glass opacities are seen within the right lower lobe superior segment. The scanned pulmonary parenchyma shows no definite consolidative lesions. No free or encysted pleural effusion. Heart size is normal, and there is no pericardial effusion. No pathologically enlarged mediastinal, hilar or axillary lymph node identified. There is no definite mass lesion in the chest wall. Scanned upper abdomen is unremarkable. Normal pulmonary arterial diameter on CT IMPRESSION: Small subpleural ground glass opacities are seen within the right lower lobe superior segment, may represent an early infectious process for clinical correlation and follow-up. Electronically Signed by: Pete Arvizu MD. (01/02/2024 18:25:21 EDT)
== END 2024-01-03 05:08 | disposition home or self-care (01) ==
LOC: ED 16:47
DX: R00.0 Tachycardia, unspecified (principal); R05.9 Cough, unspecified; R10.9 Unspecified abdominal pain; J18.9 Pneumonia, unspecified organism; E10.65 Type 1 diabetes mellitus with hyperglycemia; F41.9 Anxiety disorder, unspecified; F17.200 Nicotine dependence, unspecified, uncomplicated; I10 Essential (primary) hypertension; E78.5 Hyperlipidemia, unspecified; Z20.828 Contact with and (suspected) exposure to other viral communicable diseases; Z79.899 Other long term (current) drug therapy
CPT/HCPCS: 36000; 36415; 36600; 71250; 74176; 80053; 81001; 81025; 82150; 82375; 82803; 82947; 83690; 83735; 84484; 85025; 87040; 94640; 96374; 96375; 99285; J1815; J1817; J1885; J2060; J2270; J2405; J7609; A9270-GY

== ENCOUNTER 2024-04-02 10:36 | Emergency (ER) | payer OTHER ==
[2024-04-02 10:58] VITALS: TEMP 98.8
[2024-04-02] MEDS ORDERED: BENADRYL 50 MG/ML ONE (11:11)
[2024-04-02] MEDS ORDERED: Zofran 4 MG/2 ML VIAL ONE (11:11)
[2024-04-02] MEDS ORDERED: MORPHINE SULFATE 4 MG INJ ONE (11:11)
[2024-04-02] MEDS ORDERED: Sodium Chloride 0.9% 1000 ML 1,000 ML ONE (11:11)
--- NOTE | 2024-04-02 11:13 | ERPHSYRPT ---
- History of Present Illness Time Seen by Provider: 04/02/24 11:02 Historian: patient, family Exam Limitations: no limitations Patient Subjective Stated Complaint: Pt c/o of back pain and unable to urinate Triage Nursing Assessment: Pt was brought to the ER by her daughter, ja arango, rates pain as 9/10, pain to the right lower back and flank, hasn't urinated on her own since yesterday, pt had been to [facility] and they had cathed her for a sample only, denies injury, pt does see Dr. Pinto for injections to her back, pt also states that she has been "jerking" in her arm and leg since yesterday, pt walked into the ER with a stable gait holding her back Physician History: Patient has right flank pain radiating into both groins, but also Hx LBP and epidurals and reports unable to urinate. Onset yesterday. No Hx recent trauma. Abd soft nontender without mass or peritoneal signs. Pt reports hysterectomy / declines HCG and has consistent scar on abd. Chest clear.Ht reg without M. Normal mental status and normal Neuro exam. ext without edema. Family present as additional independent source for Hx. DIscussed risks/benefits of testing and Tx with pt and family including CBC. CMP, Lactate, Covid panel, UA and Cath, CT abd, lois, lipase, and they wish to proceed so these are ordered. results discussed with pt and family. Timing/Duration: yesterday Activities at Onset: none Quality: burning, cramping, pressure, sharpness, stabbing Abdominal Pain Onset Location: flank Pain Radiation: groin Severity of Pain-Max: moderate Severity of Pain-Current: moderate Associated Symptoms: back, nausea Previous symptoms: same symptoms as today Allergies/Adverse Reactions: NSAIDS (Non-Steroidal Anti-Inflamma Allergy (Unknown, Verified 04/02/24 10:58) amoxicillin Allergy (Verified 04/02/24 10:58) erythromycin base Allergy (Verified 04/02/24 10:58) Home Medications: Atorvastatin Calcium [Lipitor] 20 mg PO DAILY 07/12/22 [History] Fluoxetine HCl [Prozac] 40 mg PO DAILY 07/12/22 [History] Gabapentin [Neurontin] 800 mg PO QID 07/12/22 [History] Lumateperone Tosylate [Caplyta] 42 mg PO DAILY 07/12/22 [History] Omeprazole 40 mg PO DAILY 07/12/22 [History] Doxycycline Hyclate 100 mg [Vibramycin 100 MG] 100 mg PO BID 08/11/23 [History] Metoprolol Tartrate 25 mg [Lopressor 25MG Tab] 25 mg PO BID 08/11/23 [Hi story] Levothyroxine Sodium 1 tab PO DAILY 11/12/23 [History] AMITRIPTYLINE HCL 50 mg Tab [AMITRIPTYLINE HCL 50 mg Tablet] 50 mg PO HS 12/01/23 [History] Buspirone HCl 5 mg [Buspar 5 mg] 5 mg PO BID 12/01/23 [History] Hydroxyzine HCl 25 mg [Atarax 25 mg] 25 mg PO TID 12/01/23 [History] Insulin Glargine [Lantus Insulin] 26 unit SQ QAM 12/01/23 [History] Insulin Lispro [Humalog] 0 unit SQ UD 12/01/23 [History] modafiniL [Modafinil] 200 mg PO BID 12/01/23 [History] Galcanezumab-Gnlm [Emgality] 120 mg SQ UD 04/02/24 [History] Hydroxyzine HCl 25 mg [Atarax 25 mg] 25 mg PO Q4H PRN 04/02/24 [History] buprenorphine HCL [Buprenorphine HCl] 4 mg SL Q4H 04/02/24 [History] Hx Tetanus, Diphtheria Vaccination/Date Given: Yes Hx Influenza Vaccination/Date Given: Yes Hx Pneumococcal Vaccination/Date Given: Yes Travel Risk - International Travel Have you traveled outside of the country in past 3 weeks: No - Emerging Infectious Disease Are you exhibiting symptoms associated with any current EIDs: No - Review of Systems Constitutional: No Fever, No Chills Eyes: No Symptoms Ears, Nose, & Throat: No Symptoms Respiratory: No Cough, No Dyspnea Cardiac: No Chest Pain, No Edema, No Syncope Abdominal/Gastrointestinal: Abdominal Pain, Nausea, No Vomiting, No Diarrhea Genitourinary Symptoms: Urinary Retention, Flank Pain, No Dysuria Musculoskeletal: Back Pain, No Neck Pain Skin: No Rash Neurological: No Dizziness, No Focal Weakness, No Sensory Changes Psychological: No Symptoms Endocrine: No Symptoms Hematologic/Lymphatic: No Symptoms Immunological/Allergic: No Symptoms All Other Systems: Reviewed and Negative - Past Medical History Pertinent Past Medical History: Yes Neurological History: Peripheral Neuropathy Cardiac History: High Cholesterol, Hypertension Endocrine Medical History: Diabetes Type I, Hypothyroidism GI Medical History: GERD, Gallbladder Disease Psycho-Social History: Anxiety, Depression, Other Other Medical History: ABSCESS OF R KNEE, SEPTIC ARTHRITIS OF R KNEE, ANEMIA, ANXIETY AND DEPRESSION, GERD, HYPOKALEMIA, OBESITY, S/P R TKR (APRIL 26, 2023), DM WITH DIABETIC NEUROPATHY, MOOD AFFECTIVE DISORDER, SAMIR'S DISEASE, NSVT, SUICIDAL IDEATION, OPEN L ANKLE FRACTURE (2019) AFTER FALLING DOWN BACK STAIR, DKA. PATIENT REPORTS A STRONG FAMILY HISTORY OF HER MOTHER REQUIRING MULTIPLE BACK SURGERIES STARTING AT A YOUNG AGE. SHE ALSO REPORT THAT SHE WAS TOLD AT THE AGE OF 20 Y.O THAT SHE NEEDED A KNEE REPLACEMENT. UNSURE OF REASON FOR RECOMMENDATION AT 20 Y.O. - Past Surgical History Past Surgical History: Yes Gastrointestinal: Cholecystectomy Musculoskeletal: Orthopedic Surgery Female Surgical History: Hysterectomy Other Surgical History: no saliva gland on rt side, carpel tunnel, bladder surgery, ankle - Female History Hx Now: No (hysterectomy) - Social History Smoking Status: Current every day smoker How long have you smoked: years Exposure to second hand smoke: Yes Drug Use: none Patient Lives Alone: No - Social Determinants of Health Will the patient participate in the screening: Yes Do you worry about a steady place to live?: No Do you have any problems with any of the following?: No known problems In the past 12 months,have you had to go without utilities?: No Transportation Issues: No Has anyone in your support network made you feel unsafe?: No Have you or anyone in your house had to go without enough: No - Nursing Vital Signs Nursing Vital Signs: Initial Vital Signs Temperature 98.8 F 04/02/24 10:43 Pulse Rate 103 H 04/02/24 10:43 Blood Pressure 123/77 04/02/24 10:43 O2 Sat by Pulse Oximetry 97 04/02/24 10:43 Pain Scale Pain Intensity 5 - Physical Exam General Appearance: no apparent distress, alert Eye Exam: PERRL/EOMI, eyes nml inspection Ears, Nose, Throat Exam: normal ENT inspection, pharynx normal, moist mucous membranes Neck Exam: normal inspection, non-tender, supple, full range of motion Respiratory Exam: normal breath sounds, lungs clear, No respiratory distress Cardiovascular Exam: regular rate/rhythm, normal heart sounds Gastrointestinal/Abdomen Exam: soft, No tenderness, No mass Pelvic Exam: deferred Rectal Exam: deferred Back Exam: normal inspection, normal range of motion, No CVA tenderness, No vertebral tenderness Extremity Exam: normal inspection, normal range of motion, pelvis stable Neurologic Exam: alert, oriented x 3, cooperative, normal mood/affect, nml cerebellar function, sensation nml, No motor deficits Skin Exam: normal color, warm, dry SpO2 Interpretation: normal SpO2: 97 O2 Delivery: Room Air - Course Nursing assessment & vital signs reviewed: Yes - CT Exams Abdomen/Pelvis CT Interpretation: Tele-radiologist Report, No appendicitis, Other (ground glass densities in lungs, DJD in SI joints and air densities) Ordered Tests: Active Orders 24 hr Category Date Time Status IV Insertion STAT Care 04/02/24 11:02 Active ABDOMEN AND PELVIS W/0 CONTRAS [CT] Stat Exams 04/02/24 11:47 Completed AMYLASE Stat Lab 04/02/24 11:05 Completed CBC W DIFF Stat Lab 04/02/24 11:05 Completed CMP Stat Lab 04/02/24 11:05 Completed LIPASE Stat Lab 04/02/24 11:05 Completed Lactic Acid Stat Lab 04/02/24 11:02 Completed TROPONIN Q4H Lab 04/02/24 11:05 Completed TROPONIN Q4H Lab 04/02/24 14:56 Completed TROPONIN Q4H Lab 04/02/24 19:15 Ordered UA W/RFX UR CULTURE Stat Lab 04/02/24 13:12 Completed Medication Summary Discontinued Medications Generic Name Dose Route Start Last Admin Trade Name Artisq PRN Reason Stop Dose Admin Diphenhydramine HCl 25 mg 04/02/24 11:04 04/02/24 11:19 Diphenhydramine Hcl 50 Mg/Ml Vial IV 04/02/24 11:05 25 mg STAT ONE Administration Diphenhydramine HCl Confirm 04/02/24 11:11 Diphenhydramine Hcl 50 Mg/Ml Vial Administered 04/02/24 11:12 Dose 50 mg .ROUTE .STK-MED ONE Sodium Chloride 1,000 mls @ 999 mls/hr 04/02/24 11:02 04/02/24 14:12 Sodium Chloride 0.9% 1000 Ml IV 04/02/24 12:02 Infused .Q1H1M STA Infusion Sodium Chloride Confirm 04/02/24 11:11 Sodium Chloride 0.9% 1000 Ml Administered 04/02/24 11:12 Dose 1,000 mls @ ud .ROUTE .STK-MED ONE Morphine Sulfate 4 mg 04/02/24 11:04 04/02/24 11:22 Morphine Sulfate 4 Mg/Ml Injection IV 04/02/24 11:05 4 mg STAT ONE Administration Morphine Sulfate Confirm 04/02/24 11:11 Morphine Sulfate 4 Mg/Ml Injection Administered 04/02/24 11:12 Dose 4 mg .ROUTE .STK-MED ONE Ondansetron HCl 4 mg 04/02/24 11:02 04/02/24 11:17 Ondansetron Hcl 4 Mg/2 Ml Vial IV 04/02/24 11:03 4 mg STAT ONE Administration Ondansetron HCl Confirm 04/02/24 11:11 Ondansetron Hcl 4 Mg/2 Ml Vial Administered 04/02/24 11:12 Dose 4 mg .ROUTE .STK-MED ONE Lab/Rad Data: Laboratory Result Diagrams 04/02/24 11:05 04/02/24 11:05 Laboratory Results 04/02/24 04/02/24 04/02/24 Range/Units 14:56 13:12 11:05 WBC (3.98-10.04) x10^3/uL RBC (3.93-5.22) x10^6/uL Hgb (11.2-15.7) g/dL Hct (34.1-44.9) % MCV (79.4-94.8) fL MCH (25.6-32.2) pg MCHC (32.2-35.5) g/dL RDW (11.7-14.4) % Plt Count (182-369) x10^3/uL MPV (9.4-12.3) fL Gran % (34.0-71.1) % Immature Gran % (Auto) (0.001-0.429) % Nucleat RBC Rel Count (0.00-0.2) % Eos # (Auto) (0.04-0.36) x10^3/uL Immature Gran # (Auto) (0.001-0.031) x10^3u/L Absolute Lymphs (auto) (1.18-3.74) x10^3/uL Absolute Monos (auto) (0.24-0.86) x10^3/uL Absolute Nucleated RBC (0.00-0.012) x10^3u/L Lymphocytes % (19.3-51.7) % Monocytes % (4.7-12.5) % Eosinophils % (0.7-5.8) % Basophils % (0.1-1.2) % Absolute Granulocytes (1.56-6.13) x10^3/uL Basophils # (0.01-0.08) x10^3/uL Sodium (135-145) mmol/L Potassium (3.5-5.1) mmol/L Chloride (98-107) mmol/L Carbon Dioxide (22-30) mmol/L Anion Gap (5-15) MEQ/L BUN (7-17) mg/dL Creatinine (0.52-1.04) mg/dL Estimated GFR ML/MIN Glucose (74-106) mg/dL Lactic Acid (0.4-2.0) Calcium (8.4-10.2) mg/dL Total Bilirubin (0.2-1.3) mg/dL AST (14-36) U/L ALT (0-35) U/L Alkaline Phosphatase (38-126) U/L Troponin I < 0.012 < 0.012 (0.000-0.033) ng/mL Serum Total Protein (6.3-8.2) g/dL Albumin (3.5-5.0) g/dL Amylase (30-110) U/L Lipase (23-300) U/L Urine Color Dark Yellow A (Yellow) Urine Appearance Clear (Clear) Urine pH 5.5 (4.6-8.0) Ur Specific Putnam 1.020 (1.005-1.030) Urine Protein Negative (Negative) Urine Glucose (UA) 250 A (Negative) mg/dL Urine Ketones Trace A (Negative) Urine Blood Negative (Negative) Urine Nitrite Negative (Negative) Urine Bilirubin Negative (Negative) Urine Urobilinogen 1.0 A (0.2) mg/dL Ur Leukocyte Esterase Negative (Negative) U Hyaline Cast (Auto) None Seen (0-2) /LPF Urine Microscopic RBC 0-2 (0-5) /HPF Urine Microscopic WBC 0-2 (0-5) /HPF Ur Epithelial Cells Few (None Seen) /HPF Urine Bacteria None Seen (None Seen) /HPF Urine Culture Reflexed NO (NO) 04/02/24 04/02/24 04/02/24 Range/Units 11:05 11:05 11:02 WBC 8.4 (3.98-10.04) x10^3/uL RBC 3.78 L (3.93-5.22) x10^6/uL Hgb 11.6 (11.2-15.7) g/dL Hct 33.8 L (34.1-44.9) % MCV 89.4 (79.4-94.8) fL MCH 30.7 (25.6-32.2) pg MCHC 34.3 (32.2-35.5) g/dL RDW 12.1 (11.7-14.4) % Plt Count 220 (182-369) x10^3/uL MPV 11.5 (9.4-12.3) fL Gran % 82.4 H (34.0-71.1) % Immature Gran % (Auto) 0.4 (0.001-0.429) % Nucleat RBC Rel Count 0.0 (0.00-0.2) % Eos # (Auto) 0 L (0.04-0.36) x10^3/uL Immature Gran # (Auto) 0.03 (0.001-0.031) x10^3u/L Absolute Lymphs (auto) 1.00 L (1.18-3.74) x10^3/uL Absolute Monos (auto) 0.41 (0.24-0.86) x10^3/uL Absolute Nucleated RBC 0.00 (0.00-0.012) x10^3u/L Lymphocytes % 11.9 L (19.3-51.7) % Monocytes % 4.9 (4.7-12.5) % Eosinophils % 0.0 L (0.7-5.8) % Basophils % 0.4 (0.1-1.2) % Absolute Granulocytes 6.94 H (1.56-6.13) x10^3/uL Basophils # 0.03 (0.01-0.08) x10^3/uL Sodium 132 L (135-145) mmol/L Potassium 3.4 L (3.5-5.1) mmol/L Chloride 100 (98-107) mmol/L Carbon Dioxide 25 (22-30) mmol/L Anion Gap 10.8 (5-15) MEQ/L BUN 9 (7-17) mg/dL Creatinine 0.80 (0.52-1.04) mg/dL Estimated GFR 96.1 ML/MIN Glucose 217 H (74-106) mg/dL Lactic Acid 1.6 (0.4-2.0) Calcium 8.7 (8.4-10.2) mg/dL Total Bilirubin 1.00 (0.2-1.3) mg/dL AST 38 H (14-36) U/L ALT 69 H (0-35) U/L Alkaline Phosphatase 182 H (38-126) U/L Troponin I (0.000-0.033) ng/mL Serum Total Protein 7.3 (6.3-8.2) g/dL Albumin 3.9 (3.5-5.0) g/dL Amylase 57 (30-110) U/L Lipase 15 L (23-300) U/L Urine Color (Yellow) Urine Appearance (Clear) Urine pH (4.6-8.0) Ur Specific Putnam (1.005-1.030) Urine Protein (Negative) Urine Glucose (UA) (Negative) mg/dL Urine Ketones (Negative) Urine Blood (Negative) Urine Nitrite (Negative) Urine Bilirubin (Negative) Urine Urobilinogen (0.2) mg/dL Ur Leukocyte Esterase (Negative) U Hyaline Cast (Auto) (0-2) /LPF Urine Microscopic RBC (0-5) /HPF Urine Microscopic WBC (0-5) /HPF Ur Epithelial Cells (None Seen) /HPF Urine Bacteria (None Seen) /HPF Urine Culture Reflexed (NO) - Progress Progress: improved, re-examined Progress Note: 04/02/24 16:23 I have explained to the pt and family that she may have a serious spinal problem evolving causing her urinary retention and result in paralysis or other permanent complications if not evaluated further with MRI or some other problem including cardiovascular or other condition requiring further w/u they prefer to sign out AMA - do not wish further w/u here or a transfer, and prefer followup outpt and have the capacity to make this choice. 04/02/24 16:27 Counseled pt/family regarding: lab results, diagnosis, need for follow-up, rad results Medical Desision Making - Independent Historian Additional History obtained from: Family - Discussion of managment Care discussed with:: hospitalist Reviewed:: Test results, Need for additional workup Agreed on:: Treatment plan, need for follow-up, decision to admit - Social Determinants of Health Limited access to: transportation - Diagnostic Testing Diagnostic test were ordered, analyzed, and reviewed by me: Yes Radiological Interpretation: Teleradiologist Report - Risk of complications The pt has a mod risk of morbidity or mortality based on: Need for prescription drug management The pt has a high risk of morbidity or mortality based on: Decision regarding hospitilization or escalation of hosp level of care - Departure Departure Disposition: AMA Clinical Impression: Chronic LBP with urinary retention, Diabetes, Lung abnormality on CT , mild hypokalemia, Elevated LFTs Condition: Good Critical Care Time: No Referrals: SHANDA MATOS MD [Primary Care Provider] - Follow up/PCP as directed Instructions: Low Back Pain (DC), Sciatica (DC), Cauda equina syndrome, Urinary retention, Hypokalemia Additional Instructions: We suspect that your back condition has progressed and is causing urinary retention. This could be a serious condition such as cauda equina and can result in permanent injury. You need an MRI as further workup PREETI - so see a Dr. ÁLVAREZ to have this and other indicated evaluations and interventions. Return meantime/ anytime if you change your mind and wish to have this immediately such as by transfer to an elevated facility. THere is also some abnormal finding in your lungs that will require further eval uation to rule out a lung condition seen on partial CT of that area, followup your liver tests and low potassium for eval and treatment with your Dr. gorman
[2024-04-02] MEDS: Sodium Chloride 0.9% 1000 ML 1,000 ML IV STA (11:15)
[2024-04-02] MEDS: Zofran 4 MG/2 ML VIAL IV ONE (11:17)
[2024-04-02] MEDS: BENADRYL 50 MG/ML IV ONE (11:19)
[2024-04-02 11:22] LABS: Absolute Neutrophil Ct (ANC) 6.94 x10^3/uL (1.56-6.13); BASOPHIL % 0.4 % (0.1-1.2); Basophil (Absolute #) 0.03 x10^3/uL (0.01-0.08); Eosinophil (Absolute #) 0 x10^3/uL (0.04-0.36); Hematocrit 33.8 % (34.1-44.9); Hemoglobin 11.6 g/dL (11.2-15.7); IMMATURE GRAN # 0.03 x10^3u/L (0.001-0.031); IMMATURE GRAN % 0.4 % (0.001-0.429); Lymphocytes % 11.9 % (19.3-51.7); Mean Cell Volume 89.4 fL (79.4-94.8); Mean Corpuscular Hemoglobin 30.7 pg (25.6-32.2); Mean Corpuscular Hgb Concent. 34.3 g/dL (32.2-35.5); Mean Platelet Volume 11.5 fL (9.4-12.3); Monocyte (Absolute #) 0.41 x10^3/uL (0.24-0.86); Monocytes % 4.9 % (4.7-12.5); Neutrophil % 82.4 % (34.0-71.1); Platelet Count 220 x10^3/uL (182-369); Red Blood Count 3.78 x10^6/uL (3.93-5.22); Red Cell Distribution Width 12.1 % (11.7-14.4); White Blood Count 8.4 x10^3/uL (3.98-10.04)
[2024-04-02] MEDS: MORPHINE SULFATE 4 MG INJ IV ONE (11:22)
[2024-04-02 11:34] LABS: ALBUMIN 3.9 g/dL (3.5-5.0); ANION GAP 10.8 MEQ/L (5-15); Calcium 8.7 mg/dL (8.4-10.2); Creatinine 1 0.8 mg/dL (0.52-1.04); EST GLOMERULAR FILTRATION RATE 96.1 ML/MIN; Potassium 3.4 mmol/L (3.5-5.1); Total Protein 7.3 g/dL (6.3-8.2)
--- NOTE | 2024-04-02 12:44 | XRAY ---
CLINICAL HISTORY: right flank pain and pelvic pain COMPARISON: 01/02/2024. TECHNIQUE: Axial CT scan of the abdomen and pelvis was performed without IV contrast. Coronal and sagittal reconstructive images were also obtained. One of the following dose reduction techniques were utilized for this exam: Automated exposure control, adjustment of the mA and/or kV according to patient size, use of iterative reconstruction FINDINGS: On appropriate lung window settings, interval development of multiple ground glass opacities seen scattered in both lower lobes, CT scan chest is advised for further evaluation. Both the kidneys are unremarkable. They are normal in size and shape. No calculi or hydronephrosis. The liver is normal in size. No focal or diffuse parenchymal abnormality. The intrahepatic biliary radicals and the bile ducts are normal. Gallbladder is not seen, status postcholecystectomy. The spleen, pancreas, adrenal glands are unremarkable. A small fat-filled umbilical hernia is noted. The ascending colon, the transverse colon, the descending colon, visualized small bowel loops are unremarkable. There is no evidence of significant enlargement of the mesenteric or retroperitoneal lymph nodes. The appendix is unremarkable.The urinary bladder is unremarkable. Bilateral mild subchondral sclerosis of the sacroiliac joints at the iliac sides along with air densities within the joints. Stable IMPRESSION: 1. Interval development of multiple ground-glass opacities seen scattered in both lower lung lobes, CT scan chest is advised for further evaluation. 2. Bilateral mild subchondral sclerosis of the sacroiliac joints at the iliac sides along with air densities within the joints. Stable 3. No otherwise remarkable abnormalities. [facility] was called at [phone] at 11:32 AM HOSPICE CARE TRANSITIONS COORDINATOR, 04/02/2024. Crow Arcos was informed about Positive findings. Electronically Signed by: Pete Arvizu MD. (04/02/2024 12:40:54 EDT)
[2024-04-02 14:25] LABS: ADD URINE CULTURE? NO (NO); Appearance Clear (Clear); Bacteria None Seen /HPF (None Seen); Bilirubin Negative (Negative); Blood Negative (Negative); Epithelial Cells Few /HPF (None Seen); Glucose, Urine 250 mg/dL (Negative); Hyaline Casts None Seen /LPF (0-2); Ketones Trace (Negative); Leukocyte Esterase Negative (Negative); Nitrite Negative (Negative); Ph 5.5 (4.6-8.0); Protein,Urine Dip Negative (Negative); RBC 0-2 /HPF (0-5); WBC 0-2 /HPF (0-5)
[2024-04-02] MEDS ORDERED: Klor Con ONE (16:40)
[2024-04-02] MEDS: Klor Con PO ONE (16:40)
[2024-04-02 17:23] VITALS: PULSE 99; RESP 18
[2024-04-02 18:07] VITALS: BP 79/58; O2SAT 97
== END 2024-04-02 18:51 | disposition short-term general hospital (02) ==
LOC: ED 10:36
DX: G89.29 Other chronic pain (principal); M54.50 Low back pain, unspecified; R33.9 Retention of urine, unspecified; M51.36 Other intervertebral disc degeneration, lumbar region; E10.42 Type 1 diabetes mellitus with diabetic polyneuropathy; R91.8 Other nonspecific abnormal finding of lung field; E87.6 Hypokalemia; R94.5 Abnormal results of liver function studies; R10.9 Unspecified abdominal pain; E78.5 Hyperlipidemia, unspecified; I10 Essential (primary) hypertension; Z79.891 Long term (current) use of opiate analgesic; Z79.899 Other long term (current) drug therapy; Z72.0 Tobacco use
CPT/HCPCS: 36000; 36415; 74176; 80053; 81001; 82150; 83605; 83690; 84484; 85025; 96360; 96374; 96375; 99284; P9612; J1200; J2270; J2405; A9270-GY

== ENCOUNTER 2024-04-19 07:49 | Day surgery (SDC) | payer OTHER ==
[2024-04-19] MEDS ORDERED: Decadron 4 MG INJ IV ONE (07:50)
[2024-04-19] MEDS ORDERED: Sodium Chloride 0.9(Preservative Free) 10 ML IJ ONE (07:50)
[2024-04-19] MEDS ORDERED: DIPRIVAN 200 MG/20 ML IV ONE (09:25)
[2024-04-19] MEDS ORDERED: Versed 2 MG/2 ML Injection ONE (09:29)
[2024-04-19] MEDS ORDERED: DEXMEDETOMIDINE 80 MCG/20ML-NS IV ONE (09:32)
[2024-04-19] MEDS ORDERED: Xylocaine-Mpf 2% 5 Ml Vial ONE (09:36)
[2024-04-19] MEDS ORDERED: MORPHINE SULFATE 2 MG INJ ONE (09:50)
[2024-04-19] MEDS ORDERED: Lactated Ringers 1,000 ML IV ONE (10:04)
--- NOTE | 2024-04-19 10:39 | XRAY ---
Indication: Right L4-S1 transforaminal AGUSTÍN. Intraoperative fluoroscopy provided for 28 seconds. 4 digital spot image submitted for interpretation demonstrates posterior needle tips projecting over the expected right L4 and L5 nerve roots. Small amount of contrast injected for needle tip placement. Correlate with intraoperative findings/report.
--- NOTE | 2024-04-19 13:24 | XRAY ---
28 seconds of fluoroscopy was used in surgery for a right L4-S1 transforaminal AGUSTÍN.
== END 2024-04-19 10:10 | disposition home or self-care (01) ==
LOC: SDC-PAIN 07:49
PROVIDERS: ATTEND Psychiatry & Neurology Pain Medicine
DX: M54.16 Radiculopathy, lumbar region (principal); E10.9 Type 1 diabetes mellitus without complications
CPT/HCPCS: 64483; 64484; 72100; 77003; 82947; J1100; J2250; J2270; J2704; Q9966

== ENCOUNTER 2024-08-02 08:18 | Day surgery (SDC) | payer OTHER | END 2024-08-02 09:15 | disposition home or self-care (01) | LOC: SDC-PAIN 08:18 | PROVIDERS: ATTEND Psychiatry & Neurology Pain Medicine | DX: Z53.8 Procedure and treatment not carried out for other reasons (principal); E10.9 Type 1 diabetes mellitus without complications | CPT/HCPCS: 82947 ==

== ENCOUNTER 2024-12-15 19:07 | Observation (INO) | payer OTHER ==
[2024-12-15] MEDS ORDERED: Sodium Chloride 0.9% 1000 ML 1,000 ML ONE ×2 (19:13→20:54)
[2024-12-15] MEDS ORDERED: Zofran 4 MG/2 ML VIAL ONE (19:17)
[2024-12-15] MEDS: Zofran 4 MG/2 ML VIAL IV ONE (19:18)
[2024-12-15] MEDS ORDERED: Sterile H2O 10 ml IJ ONE (19:32)
[2024-12-15] MEDS ORDERED: solu-MEDROL ONE (19:33)
[2024-12-15] MEDS ORDERED: BENADRYL 50 MG/ML ONE (19:33)
[2024-12-15] MEDS ORDERED: Pepcid 20 MG VIAL IV ONE (19:33)
[2024-12-15 19:37] LABS: A-aADO2 428; ABG HEMOGLOBIN 10.2; ARTERIAL BLD GAS O2 SATURATION 99.6 % (95-100); ARTERIAL BLOOD GAS BASE EXCESS -1.5 (-2.0-2.0); ARTERIAL BLOOD GAS FIO2 100 %; ARTERIAL BLOOD GAS PCO2 36 mmHg (35-45); ARTERIAL BLOOD GAS PO2 240 mmHg (75-100); ARTERIAL BLOOD GAS pH 7.41 (7.35-7.45); HCO3- 22.8 (22-28); Lactic Acid 0.9 (0.4-2.0); Methhemoglobin 0.6 % (1.4-1.5); paO2 pAO1 0.36
[2024-12-15 19:38] LABS: ABG SITE RIGHT BRACHIAL; ALLEN TEST OK? YES; ARTERIAL BLD GAS TIDAL VOLUME 700 cc; ARTERIAL BLOOD GAS PEEP 5 cmH2O; ARTERIAL BLOOD GAS VENT MODE VC/AC; ARTERIAL BLOOD GAS VENT RATE 16 /MIN
[2024-12-15] MEDS ORDERED: DEXTROSE 10% 250 ML 250 ML IV ONE (19:41)
[2024-12-15] MEDS ORDERED: D50W 50 ml Abboject IV ONE (19:41)
--- NOTE | 2024-12-15 19:48 | ERPHSYRPT ---
- History of Present Illness Time Seen by Provider: 12/15/24 19:34 Source: EMS Exam Limitations: clinical condition Patient Subjective Stated Complaint: c/o unresponsive Triage Nursing Assessment: patient brought into ED by ambulance with c/o unres ponsiveness. Patient has a history of diabetes. Sugar upon arrival was 43 per our glucometer, D50 was administered. EMS stated that family found her unarousable at home. Family is unaware how long she was down for. Physician History: 39 years old with history of diabetes mellitus is brought in the ER by EMS after family found her down unresponsive. Patient is not arousable to painful stimuli, she has 3 Narcan and route with no significant improvement, has a blood sugar of 43 on presentation, given D50 and patient is probably intubated after placing in a c-collar. Patient has some broken frontal teeth with minimal gum bleeding. Bilateral pupils are equal 3 mm and sluggish in reaction. Has a wound on the right foot/heel no other apparent injury. Allergies/Adverse Reactions: NSAIDS (Non-Steroidal Anti-Inflamma Allergy (Unknown, Verified 12/15/24 19:59) amoxicillin Allergy (Verified 12/15/24 19:59) erythromycin base Allergy (Verified 12/15/24 19:59) Home Medications: AMITRIPTYLINE HCL 50 mg Tab [AMITRIPTYLINE HCL 50 mg Tablet] 150 mg PO HS 12/15/24 [History] Atorvastatin Calcium [Lipitor 40Mg] 40 mg PO DAILY 12/15/24 [History] Buprenorphine HCl/Naloxone HCl [Zubsolv 11.4-2.9 mg Tablet Sl] 1 each SL BID 12/15/24 [History] Celecoxib 100 mg [celeBREX 100 MG] 200 mg PO DAILY 12/15/24 [History] Cholecalciferol (Vitamin D3) [Vitamin D] 5,000 unit PO WEEKLY 12/15/24 [History] Desvenlafaxine Succinate [Desvenlafaxine Succinate ER] 50 mg PO DAILY 12/15/24 [History] Divalproex Sodium ER 250 mg [Depakote EXTENDED RELEASE 250 MG] 250 mg PO TID 12/15/24 [History] Duloxetine HCl 60 mg PO DAILY 12/15/24 [History] Gabapentin 600 mg PO TID 12/15/24 [History] Galcanezumab-Gnlm [Emgality] 120 mg SQ UD 12/15/24 [History] Glucagon [Gvoke Hypopen 2-Pack] 0.5 mg SQ UD 12/15/24 [History] Hydroxyzine HCl 25 mg [Atarax 25 mg] 25 mg PO Q8HPRN PRN 12/15/24 [History] Insulin Glargine [Lantus Insulin] 40 unit SQ BID 12/15/24 [History] Levothyroxine Sodium [Levothyroxine] 137 mcg PO DAILY 12/15/24 [History] Lumateperone Tosylate [Caplyta] 21 mg PO DAILY 12/15/24 [History] Metoprolol Tartrate 50 mg [Lopressor 50 MG] 50 mg PO BID 12/15/24 [History] Ondansetron ODT 4 MG [Zofran Odt 4 mg] 4 mg PO Q6H PRN PRN 12/15/24 [History] PANTOPRAZOLE 40 mg Tablet [Protonix 40MG Tablet] 40 mg PO QAM 12/15/24 [History] Sumatriptan Succinate [Imitrex] 50 mg PO UD 12/15/24 [History] armodafiniL [Armodafinil] 250 mg PO QAM 12/15/24 [History] Hx Tetanus, Diphtheria Vaccination/Date Given: (unknown) Hx Influenza Vaccination/Date Given: (unknown) Hx Pneumococcal Vaccination/Date Given: (unknown) Travel Risk - International Travel Have you traveled outside of the country in past 3 weeks: (unknown) - Emerging Infectious Disease Are you exhibiting symptoms associated with any current EIDs: No - Review of Systems All Other Systems: Unable due to condition - Past Medical History Pertinent Past Medical History: Yes Neurological History: Peripheral Neuropathy Cardiac History: High Cholesterol, Hypertension Endocrine Medical History: Diabetes Type I, Hypothyroidism GI Medical History: GERD, Gallbladder Disease Psycho-Social History: Anxiety, Depression, Other Other Medical History: ABSCESS OF R KNEE, SEPTIC ARTHRITIS OF R KNEE, ANEMIA, ANXIETY AND DEPRESSION, GERD, HYPOKALEMIA, OBESITY, S/P R TKR (APRIL 26, 2023), DM WITH DIABETIC NEUROPATHY, MOOD AFFECTIVE DISORDER, SAMIR'S DISEASE, NSVT, SUICIDAL IDEATION, OPEN L ANKLE FRACTURE (2019) AFTER FALLING DOWN BACK STAIR, DKA. PATIENT REPORTS A STRONG FAMILY HISTORY OF HER MOTHER REQUIRING MULTIPLE BACK SURGERIES STARTING AT A YOUNG AGE. SHE ALSO REPORT THAT SHE WAS TOLD AT THE AGE OF 20 Y.O THAT SHE NEEDED A KNEE REPLACEMENT. UNSURE OF REASON FOR RECOMMENDATION AT 20 Y.O. - Past Surgical History Past Surgical History: Yes Gastrointestinal: Cholecystectomy Musculoskeletal: Orthopedic Surgery Female Surgical History: Hysterectomy Other Surgical History: no saliva gland on rt side, carpel tunnel, bladder surgery, ankle - Female History Hx Last Menstrual Period: unknown Hx Now: No - Social History Smoking Status: Current every day smoker How long have you smoked: years Exposure to second hand smoke: Yes Drug Use: none - Social Determinants of Health Will the patient participate in the screening: Declined to provide - Nursing Vital Signs Nursing Vital Signs: Initial Vital Signs Temperature 96.4 F 12/15/24 19:09 Pulse Rate 90 12/15/24 19:09 Respiratory Rate 30 H 12/15/24 19:09 Blood Pressure 97/64 12/15/24 19:09 O2 Sat by Pulse Oximetry 99 12/15/24 19:09 - Physical Exam General Appearance: other (Responsive) Eye Exam: eyes nml inspection Ears, Nose, Throat Exam: other (Broken teeth upper jaw frontal with minimal gum bleeding. No tongue bite.) Neck Exam: normal inspection, supple, other Respiratory Exam: diminished breath sounds, crackles/rales, rhonchi Cardiovascular Exam: regular rate/rhythm, normal heart sounds Gastrointestinal/Abdomen Exam: soft, No tenderness, No distention Back Exam: normal inspection Extremity Exam: normal inspection, normal range of motion Neurologic Exam: other (Unresponsive,) Skin Exam: normal color SpO2 Interpretation: O2 applied SpO2: 99 O2 Delivery: Nasal Cannula Procedures - Intubation Time of Intubation: 19:20 Intubation Indications: airway protection Intubation Method: glidescope Tube Size (cm): 7.5 Medications: Etomidate, Rocuronium C-Spine: immobilized Endotracheal Tube Confirmation: bilateral breath sounds, positive end tidal CO2, good rise & fall of chest, stable or inc of O2 sat Intubation Complications: no complications Performed By: ED Physician Post Intubation Xray: Yes - Course EKG Interpreted by Me: RATE ([id number]), Sinus Rhythm, NORMAL AXIS, NORMAL QRS, Non- specific ST Changes Ordered Tests: Active Orders 24 hr Category Date Time Status Catheter-Alpine Rudd STAT Care 12/15/24 19:30 Active EKG-ER Only STAT Care 12/15/24 22:37 Active CERVICAL SPINE WO CONTRAST [CT] Stat Exams 12/15/24 19:36 Taken CHEST 1 VIEW (PORTABLE) Stat Exams 12/15/24 19:21 Completed CHEST 1 VIEW (PORTABLE) Stat Exams 12/15/24 19:46 Taken FACIAL BONES WO CONTRAST [CT] Stat Exams 12/15/24 19:36 Taken HEAD WITHOUT CONTRAST [CT] Stat Exams 12/15/24 19:36 Taken ACETAMINOPHEN Stat Lab 12/15/24 19:40 Completed ARTERIAL BLOOD GASES Stat Lab 12/15/24 19:28 Completed BLOOD CULTURE Stat Lab 12/15/24 19:50 Received CBC W DIFF Stat Lab 12/15/24 19:40 Completed CK-Creatinine Phosphokinase Stat Lab 12/15/24 19:40 Completed CMP Stat Lab 12/15/24 19:40 Completed CULTURE,URINE Stat Lab 12/15/24 00:08 Received ETHYL ALCOHOL Stat Lab 12/15/24 19:40 Completed HCG QUALITATIVE, SERUM Stat Lab 12/15/24 19:40 Completed Lactic Acid Stat Lab 12/15/24 19:28 Completed MAGNESIUM Stat Lab 12/15/24 19:40 Completed NT PRO BNPII Stat Lab 12/15/24 19:40 Completed POCT GLUCOSE Stat Lab 12/15/24 19:23 Completed POCT GLUCOSE Stat Lab 12/15/24 19:40 Completed POCT GLUCOSE Stat Lab 12/15/24 19:55 Completed POCT GLUCOSE Stat Lab 12/15/24 20:19 Completed POCT GLUCOSE Stat Lab 12/15/24 20:41 Completed POCT GLUCOSE Stat Lab 12/15/24 21:18 Completed POCT GLUCOSE Stat Lab 12/15/24 22:05 Completed POCT GLUCOSE Stat Lab 12/15/24 22:41 Completed POCT GLUCOSE Stat Lab 12/15/24 23:47 Completed POCT GLUCOSE Stat Lab 12/15/24 23:47 Completed POCT GLUCOSE Stat Lab 12/15/24 23:54 Completed PROCALCITONIN Stat Lab 12/15/24 19:40 Completed PT INR [PROTIME WITH INR] Stat Lab 12/15/24 19:40 Completed PTT Stat Lab 12/15/24 19:40 Completed SALICYLATE Stat Lab 12/15/24 19:40 Completed TROPONIN Q4H Lab 12/15/24 19:40 Completed Urine Triage Profile Stat Lab 12/15/24 20:00 Completed Intubate Patient STAT RT 12/15/24 20:40 Active Standby STAT RT 12/15/24 20:40 Active Ventilator Management STAT RT 12/15/24 20:40 Active Medication Summary Generic Name Dose Route Start Last Admin Trade Name Freq PRN Reason Stop Dose Admin Propofol 100 mls @ 3.4 mls/hr 12/15/24 21:23 12/15/24 20:52 Propofol 1000 Mg/100 Ml Bottle IV 01/14/25 21:22 3.4 ml/hr .Q24H PRN 3.4 mls/hr SEDATION FOR VENT Administration Protocol Discontinued Medications Generic Name Dose Route Start Last Admin Trade Name Freq PRN Reason Stop Dose Admin Dextrose 50 ml 12/15/24 19:40 Dextrose 50%-Water 50 Ml Abboject IV 12/15/24 19:41 STAT ONE Dextrose Confirm 12/15/24 19:41 Dextrose 50%-Water 50 Ml Abboject Administered 12/15/24 19:42 Dose 50 ml IV .STK-MED ONE Diphenhydramine HCl Confirm 12/15/24 19:33 Diphenhydramine Hcl 50 Mg/Ml Vial Administered 12/15/24 19:34 Dose 50 mg .ROUTE .STK-MED ONE Famotidine Confirm 12/15/24 19:33 Famotidine 20 Mg/1 Vial Administered 12/15/24 19:34 Dose 20 mg IV .STK-MED ONE Sodium Chloride Confirm 12/15/24 19:13 Sodium Chloride 0.9% 1000 Ml Administered 12/15/24 19:14 Dose 1,000 mls @ ud .ROUTE .STK-MED ONE Sodium Chloride 1,000 mls @ 999 mls/hr 12/15/24 19:28 Sodium Chloride 0.9% 1000 Ml IV 12/15/24 20:28 .Q1H1M STA Dextrose Confirm 12/15/24 19:41 Dextrose 10% 250 Ml Administered 12/15/24 19:42 Dose 250 mls @ ud IV .STK-MED ONE Levofloxacin/Dextrose 750 mg in 150 mls @ 100 mls/hr 12/15/24 20:18 Levofloxacin 750mg/150ml D5w IV 12/15/24 21:47 STAT STA Aztreonam 2 gm/ Sodium 100 mls @ 200 mls/hr 12/15/24 20:18 Chloride IV 12/15/24 20:47 STAT ONE Propofol Confirm 12/15/24 20:45 Propofol 1000 Mg/100 Ml Bottle Administered 12/15/24 20:46 Dose 100 mls @ ud IV .STK-MED ONE Sodium Chloride Confirm 12/15/24 20:54 Sodium Chloride 0.9% 1000 Ml Administered 12/15/24 20:55 Dose 1,000 mls @ ud .ROUTE .STK-MED ONE Methylprednisolone Sodium Succinate Confirm 12/15/24 19:33 Methylprednis Sod Succ 125 Mg/2 Ml Vial Administered 12/15/24 19:34 Dose 125 mg .ROUTE .STK-MED ONE Ondansetron HCl Confirm 12/15/24 19:17 Ondansetron Hcl 4 Mg/2 Ml Vial Administered 12/15/24 19:18 Dose 4 mg .ROUTE .STK-MED ONE Ondansetron HCl 4 mg 12/15/24 21:22 12/15/24 19:18 Ondansetron Hcl 4 Mg/2 Ml Vial IV 12/15/24 21:23 4 mg STAT ONE Administration Oseltamivir Phosphate 75 mg 12/15/24 20:44 Oseltamivir 75 Mg Cap PO 12/15/24 20:45 STAT ONE Sterile Water Confirm 12/15/24 19:32 Water For Injection,Sterile 10 Ml Vial Administered 12/15/24 19:33 Dose 10 ml IJ .STK-MED ONE Lab/Rad Data: Laboratory Result Diagrams 12/15/24 19:40 12/15/24 19:40 Laboratory Results 12/15/24 12/15/24 12/15/24 Range/Units 23:54 23:47 23:47 WBC (3.98-10.04) x10^3/uL RBC (3.93-5.22) x10^6/uL Hgb (11.2-15.7) g/dL Hct (34.1-44.9) % MCV (79.4-94.8) fL MCH (25.6-32.2) pg MCHC (32.2-35.5) g/dL RDW (11.7-14.4) % Plt Count (182-369) x10^3/uL MPV (9.4-12.3) fL Gran % (34.0-71.1) % Immature Gran % (Auto) (0.001-0.429) % Nucleat RBC Rel Count (0.00-0.2) % Eos # (Auto) (0.04-0.36) x10^3/uL Immature Gran # (Auto) (0.001-0.031) x10^3u/L Absolute Lymphs (auto) (1.18-3.74) x10^3/uL Absolute Monos (auto) (0.24-0.86) x10^3/uL Absolute Nucleated RBC (0.00-0.012) x10^3u/L Lymphocytes % (19.3-51.7) % Monocytes % (4.7-12.5) % Eosinophils % (0.7-5.8) % Basophils % (0.1-1.2) % Absolute Granulocytes (1.56-6.13) x10^3/uL Basophils # (0.01-0.08) x10^3/uL PT (9.4-12.5) SECONDS INR (0.8-3.0) APTT (25.1-36.5) SECONDS Puncture Site pCO2 (35-45) mmHg pO2 (75-100) mmHg Base Excess (-2.0-2.0) O2 Saturation (94-100) g/dF ABG pH (7.35-7.45) ABG HCO3 (22-28) ABG O2 Sat (Measured) (95-100) % Shan Test A-a Gradient a/A Ratio Hemoglobin Carboxyhemoglobin (0.0-6.9) % THgb Methemoglobin (1.4-1.5) % Potassium (3.5-5.1) Temperature C POC O2 Flow Rate % Vent Mode Vent Rate /MIN Tidal Volume cc PEEP cmH2O Sodium (135-145) mmol/L Chloride (98-107) mmol/L Carbon Dioxide (22-30) mmol/L Anion Gap (5-15) MEQ/L BUN (7-17) mg/dL Creatinine (0.52-1.04) mg/dL Estimated GFR ML/MIN Glucose (74-106) mg/dL POC Glucometer 212 H 198 H 198 H (74 to 106) mg/dL Lactic Acid (0.4-2.0) Calcium (8.4-10.2) mg/dL Magnesium (1.6-2.3) mg/dL Total Bilirubin (0.2-1.3) mg/dL AST (14-36) U/L ALT (0-35) U/L Alkaline Phosphatase (38-126) U/L Creatine Kinase (30-135) U/L Troponin I (0.000-0.033) ng/mL NT-Pro-B Natriuret Pep (<300) pg/mL Serum Total Protein (6.3-8.2) g/dL Albumin (3.5-5.0) g/dL Procalcitonin (0.030-0.080) ng/mL Serum HCG, Qual (NEGATIVE) Salicylates (2-20) mg/dL Urine Opiates Level (NEGATIVE) Ur Methadone (NEGATIVE) Acetaminophen (10-30) ug/ml Urine Barbiturates (NEGATIVE) Ur Phencyclidine (PCP) (NEGATIVE) Urine Amphetamine (NEGATIVE) U Benzodiazepine Level (NEGATIVE) Urine Cocaine (NEGATIVE) Urine Marijuana (THC) (NEGATIVE) Ethyl Alcohol (0-10) mg/dL Influenza Type A Ag (NEGATIVE) Influenza Type B Ag (NEGATIVE) RSV (PCR) (NEGATIVE) SARS-CoV-2 (PCR) (NEGATIVE) 12/15/24 12/15/24 12/15/24 Range/Units 22:41 22:05 21:18 WBC (3.98-10.04) x10^3/uL RBC (3.93-5.22) x10^6/uL Hgb (11.2-15.7) g/dL Hct (34.1-44.9) % MCV (79.4-94.8) fL MCH (25.6-32.2) pg MCHC (32.2-35.5) g/dL RDW (11.7-14.4) % Plt Count (182-369) x10^3/uL MPV (9.4-12.3) fL Gran % (34.0-71.1) % Immature Gran % (Auto) (0.001-0.429) % Nucleat RBC Rel Count (0.00-0.2) % Eos # (Auto) (0.04-0.36) x10^3/uL Immature Gran # (Auto) (0.001-0.031) x10^3u/L Absolute Lymphs (auto) (1.18-3.74) x10^3/uL Absolute Monos (auto) (0.24-0.86) x10^3/uL Absolute Nucleated RBC (0.00-0.012) x10^3u/L Lymphocytes % (19.3-51.7) % Monocytes % (4.7-12.5) % Eosinophils % (0.7-5.8) % Basophils % (0.1-1.2) % Absolute Granulocytes (1.56-6.13) x10^3/uL Basophils # (0.01-0.08) x10^3/uL PT (9.4-12.5) SECONDS INR (0.8-3.0) APTT (25.1-36.5) SECONDS Puncture Site pCO2 (35-45) mmHg pO2 (75-100) mmHg Base Excess (-2.0-2.0) O2 Saturation (94-100) g/dF ABG pH (7.35-7.45) ABG HCO3 (22-28) ABG O2 Sat (Measured) (95-100) % Shan Test A-a Gradient a/A Ratio Hemoglobin Carboxyhemoglobin (0.0-6.9) % THgb Methemoglobin (1.4-1.5) % Potassium (3.5-5.1) Temperature C POC O2 Flow Rate % Vent Mode Vent Rate /MIN Tidal Volume cc PEEP cmH2O Sodium (135-145) mmol/L Chloride (98-107) mmol/L Carbon Dioxide (22-30) mmol/L Anion Gap (5-15) MEQ/L BUN (7-17) mg/dL Creatinine (0.52-1.04) mg/dL Estimated GFR ML/MIN Glucose (74-106) mg/dL POC Glucometer 154 H 111 H 122 H (74 to 106) mg/dL Lactic Acid (0.4-2.0) Calcium (8.4-10.2) mg/dL Magnesium (1.6-2.3) mg/dL Total Bilirubin (0.2-1.3) mg/dL AST (14-36) U/L ALT (0-35) U/L Alkaline Phosphatase (38-126) U/L Creatine Kinase (30-135) U/L Troponin I (0.000-0.033) ng/mL NT-Pro-B Natriuret Pep (<300) pg/mL Serum Total Protein (6.3-8.2) g/dL Albumin (3.5-5.0) g/dL Procalcitonin (0.030-0.080) ng/mL Serum HCG, Qual (NEGATIVE) Salicylates (2-20) mg/dL Urine Opiates Level (NEGATIVE) Ur Methadone (NEGATIVE) Acetaminophen (10-30) ug/ml Urine Barbiturates (NEGATIVE) Ur Phencyclidine (PCP) (NEGATIVE) Urine Amphetamine (NEGATIVE) U Benzodiazepine Level (NEGATIVE) Urine Cocaine (NEGATIVE) Urine Marijuana (THC) (NEGATIVE) Ethyl Alcohol (0-10) mg/dL Influenza Type A Ag (NEGATIVE) Influenza Type B Ag (NEGATIVE) RSV (PCR) (NEGATIVE) SARS-CoV-2 (PCR) (NEGATIVE) 12/15/24 12/15/24 12/15/24 Range/Units 20:41 20:19 20:00 WBC (3.98-10.04) x10^3/uL RBC (3.93-5.22) x10^6/uL Hgb (11.2-15.7) g/dL Hct (34.1-44.9) % MCV (79.4-94.8) fL MCH (25.6-32.2) pg MCHC (32.2-35.5) g/dL RDW (11.7-14.4) % Plt Count (182-369) x10^3/uL MPV (9.4-12.3) fL Gran % (34.0-71.1) % Immature Gran % (Auto) (0.001-0.429) % Nucleat RBC Rel Count (0.00-0.2) % Eos # (Auto) (0.04-0.36) x10^3/uL Immature Gran # (Auto) (0.001-0.031) x10^3u/L Absolute Lymphs (auto) (1.18-3.74) x10^3/uL Absolute Monos (auto) (0.24-0.86) x10^3/uL Absolute Nucleated RBC (0.00-0.012) x10^3u/L Lymphocytes % (19.3-51.7) % Monocytes % (4.7-12.5) % Eosinophils % (0.7-5.8) % Basophils % (0.1-1.2) % Absolute Granulocytes (1.56-6.13) x10^3/uL Basophils # (0.01-0.08) x10^3/uL PT (9.4-12.5) SECONDS INR (0.8-3.0) APTT (25.1-36.5) SECONDS Puncture Site pCO2 (35-45) mmHg pO2 (75-100) mmHg Base Excess (-2.0-2.0) O2 Saturation (94-100) g/dF ABG pH (7.35-7.45) ABG HCO3 (22-28) ABG O2 Sat (Measured) (95-100) % Shan Test A-a Gradient a/A Ratio Hemoglobin Carboxyhemoglobin (0.0-6.9) % THgb Methemoglobin (1.4-1.5) % Potassium (3.5-5.1) Temperature C POC O2 Flow Rate % Vent Mode Vent Rate /MIN Tidal Volume cc PEEP cmH2O Sodium (135-145) mmol/L Chloride (98-107) mmol/L Carbon Dioxide (22-30) mmol/L Anion Gap (5-15) MEQ/L BUN (7-17) mg/dL Creatinine (0.52-1.04) mg/dL Estimated GFR ML/MIN Glucose (74-106) mg/dL POC Glucometer 111 H 120 H (74 to 106) mg/dL Lactic Acid (0.4-2.0) Calcium (8.4-10.2) mg/dL Magnesium (1.6-2.3) mg/dL Total Bilirubin (0.2-1.3) mg/dL AST (14-36) U/L ALT (0-35) U/L Alkaline Phosphatase (38-126) U/L Creatine Kinase (30-135) U/L Troponin I (0.000-0.033) ng/mL NT-Pro-B Natriuret Pep (<300) pg/mL Serum Total Protein (6.3-8.2) g/dL Albumin (3.5-5.0) g/dL Procalcitonin (0.030-0.080) ng/mL Serum HCG, Qual (NEGATIVE) Salicylates (2-20) mg/dL Urine Opiates Level NEGATIVE (NEGATIVE) Ur Methadone NEGATIVE (NEGATIVE) Acetaminophen (10-30) ug/ml Urine Barbiturates NEGATIVE (NEGATIVE) Ur Phencyclidine (PCP) NEGATIVE (NEGATIVE) Urine Amphetamine NEGATIVE (NEGATIVE) U Benzodiazepine Level NEGATIVE (NEGATIVE) Urine Cocaine NEGATIVE (NEGATIVE) Urine Marijuana (THC) POSITIVE A (NEGATIVE) Ethyl Alcohol (0-10) mg/dL Influenza Type A Ag (NEGATIVE) Influenza Type B Ag (NEGATIVE) RSV (PCR) (NEGATIVE) SARS-CoV-2 (PCR) (NEGATIVE) 12/15/24 12/15/24 12/15/24 Range/Units 19:55 19:40 19:40 WBC (3.98-10.04) x10^3/uL RBC (3.93-5.22) x10^6/uL Hgb (11.2-15.7) g/dL Hct (34.1-44.9) % MCV (79.4-94.8) fL MCH (25.6-32.2) pg MCHC (32.2-35.5) g/dL RDW (11.7-14.4) % Plt Count (182-369) x10^3/uL MPV (9.4-12.3) fL Gran % (34.0-71.1) % Immature Gran % (Auto) (0.001-0.429) % Nucleat RBC Rel Count (0.00-0.2) % Eos # (Auto) (0.04-0.36) x10^3/uL Immature Gran # (Auto) (0.001-0.031) x10^3u/L Absolute Lymphs (auto) (1.18-3.74) x10^3/uL Absolute Monos (auto) (0.24-0.86) x10^3/uL Absolute Nucleated RBC (0.00-0.012) x10^3u/L Lymphocytes % (19.3-51.7) % Monocytes % (4.7-12.5) % Eosinophils % (0.7-5.8) % Basophils % (0.1-1.2) % Absolute Granulocytes (1.56-6.13) x10^3/uL Basophils # (0.01-0.08) x10^3/uL PT 10.4 (9.4-12.5) SECONDS INR 0.95 (0.8-3.0) APTT 29.4 (25.1-36.5) SECONDS Puncture Site pCO2 (35-45) mmHg pO2 (75-100) mmHg Base Excess (-2.0-2.0) O2 Saturation (94-100) g/dF ABG pH (7.35-7.45) ABG HCO3 (22-28) ABG O2 Sat (Measured) (95-100) % Shan Test A-a Gradient a/A Ratio Hemoglobin Carboxyhemoglobin (0.0-6.9) % THgb Methemoglobin (1.4-1.5) % Potassium (3.5-5.1) Temperature C POC O2 Flow Rate % Vent Mode Vent Rate /MIN Tidal Volume cc PEEP cmH2O Sodium (135-145) mmol/L Chloride (98-107) mmol/L Carbon Dioxide (22-30) mmol/L Anion Gap (5-15) MEQ/L BUN (7-17) mg/dL Creatinine (0.52-1.04) mg/dL Estimated GFR ML/MIN Glucose (74-106) mg/dL POC Glucometer 129 H 87 (74 to 106) mg/dL Lactic Acid (0.4-2.0) Calcium (8.4-10.2) mg/dL Magnesium (1.6-2.3) mg/dL Total Bilirubin (0.2-1.3) mg/dL AST (14-36) U/L ALT (0-35) U/L Alkaline Phosphatase (38-126) U/L Creatine Kinase (30-135) U/L Troponin I (0.000-0.033) ng/mL NT-Pro-B Natriuret Pep (<300) pg/mL Serum Total Protein (6.3-8.2) g/dL Albumin (3.5-5.0) g/dL Procalcitonin (0.030-0.080) ng/mL Serum HCG, Qual (NEGATIVE) Salicylates (2-20) mg/dL Urine Opiates Level (NEGATIVE) Ur Methadone (NEGATIVE) Acetaminophen (10-30) ug/ml Urine Barbiturates (NEGATIVE) Ur Phencyclidine (PCP) (NEGATIVE) Urine Amphetamine (NEGATIVE) U Benzodiazepine Level (NEGATIVE) Urine Cocaine (NEGATIVE) Urine Marijuana (THC) (NEGATIVE) Ethyl Alcohol (0-10) mg/dL Influenza Type A Ag (NEGATIVE) Influenza Type B Ag (NEGATIVE) RSV (PCR) (NEGATIVE) SARS-CoV-2 (PCR) (NEGATIVE) 12/15/24 12/15/24 12/15/24 Range/Units 19:40 19:40 19:40 WBC (3.98-10.04) x10^3/uL RBC (3.93-5.22) x10^6/uL Hgb (11.2-15.7) g/dL Hct (34.1-44.9) % MCV (79.4-94.8) fL MCH (25.6-32.2) pg MCHC (32.2-35.5) g/dL RDW (11.7-14.4) % Plt Count (182-369) x10^3/uL MPV (9.4-12.3) fL Gran % (34.0-71.1) % Immature Gran % (Auto) (0.001-0.429) % Nucleat RBC Rel Count (0.00-0.2) % Eos # (Auto) (0.04-0.36) x10^3/uL Immature Gran # (Auto) (0.001-0.031) x10^3u/L Absolute Lymphs (auto) (1.18-3.74) x10^3/uL Absolute Monos (auto) (0.24-0.86) x10^3/uL Absolute Nucleated RBC (0.00-0.012) x10^3u/L Lymphocytes % (19.3-51.7) % Monocytes % (4.7-12.5) % Eosinophils % (0.7-5.8) % Basophils % (0.1-1.2) % Absolute Granulocytes (1.56-6.13) x10^3/uL Basophils # (0.01-0.08) x10^3/uL PT (9.4-12.5) SECONDS INR (0.8-3.0) APTT (25.1-36.5) SECONDS Puncture Site pCO2 (35-45) mmHg pO2 (75-100) mmHg Base Excess (-2.0-2.0) O2 Saturation (94-100) g/dF ABG pH (7.35-7.45) ABG HCO3 (22-28) ABG O2 Sat (Measured) (95-100) % Shan Test A-a Gradient a/A Ratio Hemoglobin Carboxyhemoglobin (0.0-6.9) % THgb Methemoglobin (1.4-1.5) % Potassium (3.5-5.1) Temperature C POC O2 Flow Rate % Vent Mode Vent Rate /MIN Tidal Volume cc PEEP cmH2O Sodium (135-145) mmol/L Chloride (98-107) mmol/L Carbon Dioxide (22-30) mmol/L Anion Gap (5-15) MEQ/L BUN (7-17) mg/dL Creatinine (0.52-1.04) mg/dL Estimated GFR ML/MIN Glucose (74-106) mg/dL POC Glucometer (74 to 106) mg/dL Lactic Acid (0.4-2.0) Calcium (8.4-10.2) mg/dL Magnesium (1.6-2.3) mg/dL Total Bilirubin (0.2-1.3) mg/dL AST (14-36) U/L ALT (0-35) U/L Alkaline Phosphatase (38-126) U/L Creatine Kinase (30-135) U/L Troponin I < 0.012 (0.000-0.033) ng/mL NT-Pro-B Natriuret Pep (<300) pg/mL Serum Total Protein (6.3-8.2) g/dL Albumin (3.5-5.0) g/dL Procalcitonin (0.030-0.080) ng/mL Serum HCG, Qual NEGATIVE (NEGATIVE) Salicylates (2-20) mg/dL Urine Opiates Level (NEGATIVE) Ur Methadone (NEGATIVE) Acetaminophen (10-30) ug/ml Urine Barbiturates (NEGATIVE) Ur Phencyclidine (PCP) (NEGATIVE) Urine Amphetamine (NEGATIVE) U Benzodiazepine Level (NEGATIVE) Urine Cocaine (NEGATIVE) Urine Marijuana (THC) (NEGATIVE) Ethyl Alcohol (0-10) mg/dL Influenza Type A Ag POSITIVE A (NEGATIVE) Influenza Type B Ag NEGATIVE (NEGATIVE) RSV (PCR) NEGATIVE (NEGATIVE) SARS-CoV-2 (PCR) NEGATIVE (NEGATIVE) 12/15/24 12/15/24 12/15/24 Range/Units 19:40 19:40 19:28 WBC 6.5 (3.98-10.04) x10^3/uL RBC 3.39 L (3.93-5.22) x10^6/uL Hgb 10.4 L (11.2-15.7) g/dL Hct 31.7 L (34.1-44.9) % MCV 93.5 (79.4-94.8) fL MCH 30.7 (25.6-32.2) pg MCHC 32.8 (32.2-35.5) g/dL RDW 12.4 (11.7-14.4) % Plt Count 143 L (182-369) x10^3/uL MPV 11.4 (9.4-12.3) fL Gran % 77.9 H (34.0-71.1) % Immature Gran % (Auto) 0.3 (0.001-0.429) % Nucleat RBC Rel Count 0.0 (0.00-0.2) % Eos # (Auto) 0.01 L (0.04-0.36) x10^3/uL Immature Gran # (Auto) 0.02 (0.001-0.031) x10^3u/L Absolute Lymphs (auto) 0.91 L (1.18-3.74) x10^3/uL Absolute Monos (auto) 0.48 (0.24-0.86) x10^3/uL Absolute Nucleated RBC 0.00 (0.00-0.012) x10^3u/L Lymphocytes % 14.0 L (19.3-51.7) % Monocytes % 7.4 (4.7-12.5) % Eosinophils % 0.2 L (0.7-5.8) % Basophils % 0.2 (0.1-1.2) % Absolute Granulocytes 5.05 (1.56-6.13) x10^3/uL Basophils # 0.01 (0.01-0.08) x10^3/uL PT (9.4-12.5) SECONDS INR (0.8-3.0) APTT (25.1-36.5) SECONDS Puncture Site RIGHT BRACHIAL pCO2 36 (35-45) mmHg pO2 240 H* (75-100) mmHg Base Excess -1.5 (-2.0-2.0) O2 Saturation 98.0 (94-100) g/dF ABG pH 7.41 (7.35-7.45) ABG HCO3 22.8 (22-28) ABG O2 Sat (Measured) 99.6 (95-100) % Shan Test YES A-a Gradient 428 a/A Ratio 0.36 Hemoglobin 10.2 Carboxyhemoglobin 1.0 (0.0-6.9) % THgb Methemoglobin 0.6 L (1.4-1.5) % Potassium 3.2 L 3.0 L (3.5-5.1) Temperature 37.0 C POC O2 Flow Rate 100 % Vent Mode VC/AC Vent Rate 16 /MIN Tidal Volume 700 cc PEEP 5 cmH2O Sodium 138 (135-145) mmol/L Chloride 105 (98-107) mmol/L Carbon Dioxide 24 (22-30) mmol/L Anion Gap 12.4 (5-15) MEQ/L BUN 10 (7-17) mg/dL Creatinine 0.73 (0.52-1.04) mg/dL Estimated GFR 106.6 ML/MIN Glucose 129 H (74-106) mg/dL POC Glucometer (74 to 106) mg/dL Lactic Acid 0.9 (0.4-2.0) Calcium 7.6 L (8.4-10.2) mg/dL Magnesium 1.9 (1.6-2.3) mg/dL Total Bilirubin 0.50 (0.2-1.3) mg/dL AST 47 H (14-36) U/L ALT 59 H (0-35) U/L Alkaline Phosphatase 188 H (38-126) U/L Creatine Kinase 81 (30-135) U/L Troponin I (0.000-0.033) ng/mL NT-Pro-B Natriuret Pep 255 (<300) pg/mL Serum Total Protein 6.3 (6.3-8.2) g/dL Albumin 3.6 (3.5-5.0) g/dL Procalcitonin 0.031 (0.030-0.080) ng/mL Serum HCG, Qual (NEGATIVE) Salicylates < 1.0 L (2-20) mg/dL Urine Opiates Level (NEGATIVE) Ur Methadone (NEGATIVE) Acetaminophen < 10 L (10-30) ug/ml Urine Barbiturates (NEGATIVE) Ur Phencyclidine (PCP) (NEGATIVE) Urine Amphetamine (NEGATIVE) U Benzodiazepine Level (NEGATIVE) Urine Cocaine (NEGATIVE) Urine Marijuana (THC) (NEGATIVE) Ethyl Alcohol < 10 (0-10) mg/dL Influenza Type A Ag (NEGATIVE) Influenza Type B Ag (NEGATIVE) RSV (PCR) (NEGATIVE) SARS-CoV-2 (PCR) (NEGATIVE) 12/15/24 Range/Units 19:23 WBC (3.98-10.04) x10^3/uL RBC (3.93-5.22) x10^6/uL Hgb (11.2-15.7) g/dL Hct (34.1-44.9) % MCV (79.4-94.8) fL MCH (25.6-32.2) pg MCHC (32.2-35.5) g/dL RDW (11.7-14.4) % Plt Count (182-369) x10^3/uL MPV (9.4-12.3) fL Gran % (34.0-71.1) % Immature Gran % (Auto) (0.001-0.429) % Nucleat RBC Rel Count (0.00-0.2) % Eos # (Auto) (0.04-0.36) x10^3/uL Immature Gran # (Auto) (0.001-0.031) x10^3u/L Absolute Lymphs (auto) (1.18-3.74) x10^3/uL Absolute Monos (auto) (0.24-0.86) x10^3/uL Absolute Nucleated RBC (0.00-0.012) x10^3u/L Lymphocytes % (19.3-51.7) % Monocytes % (4.7-12.5) % Eosinophils % (0.7-5.8) % Basophils % (0.1-1.2) % Absolute Granulocytes (1.56-6.13) x10^3/uL Basophils # (0.01-0.08) x10^3/uL PT (9.4-12.5) SECONDS INR (0.8-3.0) APTT (25.1-36.5) SECONDS Puncture Site pCO2 (35-45) mmHg pO2 (75-100) mmHg Base Excess (-2.0-2.0) O2 Saturation (94-100) g/dF ABG pH (7.35-7.45) ABG HCO3 (22-28) ABG O2 Sat (Measured) (95-100) % Shan Test A-a Gradient a/A Ratio Hemoglobin Carboxyhemoglobin (0.0-6.9) % THgb Methemoglobin (1.4-1.5) % Potassium (3.5-5.1) Temperature C POC O2 Flow Rate % Vent Mode Vent Rate /MIN Tidal Volume cc PEEP cmH2O Sodium (135-145) mmol/L Chloride (98-107) mmol/L Carbon Dioxide (22-30) mmol/L Anion Gap (5-15) MEQ/L BUN (7-17) mg/dL Creatinine (0.52-1.04) mg/dL Estimated GFR ML/MIN Glucose (74-106) mg/dL POC Glucometer 114 H (74 to 106) mg/dL Lactic Acid (0.4-2.0) Calcium (8.4-10.2) mg/dL Magnesium (1.6-2.3) mg/dL Total Bilirubin (0.2-1.3) mg/dL AST (14-36) U/L ALT (0-35) U/L Alkaline Phosphatase (38-126) U/L Creatine Kinase (30-135) U/L Troponin I (0.000-0.033) ng/mL NT-Pro-B Natriuret Pep (<300) pg/mL Serum Total Protein (6.3-8.2) g/dL Albumin (3.5-5.0) g/dL Procalcitonin (0.030-0.080) ng/mL Serum HCG, Qual (NEGATIVE) Salicylates (2-20) mg/dL Urine Opiates Level (NEGATIVE) Ur Methadone (NEGATIVE) Acetaminophen (10-30) ug/ml Urine Barbiturates (NEGATIVE) Ur Phencyclidine (PCP) (NEGATIVE) Urine Amphetamine (NEGATIVE) U Benzodiazepine Level (NEGATIVE) Urine Cocaine (NEGATIVE) Urine Marijuana (THC) (NEGATIVE) Ethyl Alcohol (0-10) mg/dL Influenza Type A Ag (NEGATIVE) Influenza Type B Ag (NEGATIVE) RSV (PCR) (NEGATIVE) SARS-CoV-2 (PCR) (NEGATIVE) - Progress Progress: improved, re-examined Progress Note: 12/15/24 22:56 39 years old is evaluated in the ER for found unresponsive at home with no response to intranasal and IV Narcan and route. Patient is placed in a c-collar on presentation in the ER. Glucose was 43, given D50 with no change in the mental status. Patient is promptly intubated with chest x-ray showed proper placement of tube and bilateral airspace disease reviewed by me with pending final official read. She is given fluids, broad workup is done with CT head cervical spine and facial bones which are negative for any acute trauma findings. No intracranial bleed, midline shift or mass effect. Normal white count, normal lactate and procalcitonin. Normal renal functions. Mildly low potassium at 3.2. EKG is sinus rhythm with no obvious ST elevations. On recheck her blood sugar was dropping again, given another D50 with similar drop after half an hour and started on D10 at a rate of 50 mL/h with blood sugar in 150s. Patient has negative alcohol and urine tox screen is positive only for marijuana. She also has positive influenza A and given a dose of Tamiflu. Later on we spoke with the who reported that patient has not been acting at her baseline since Wednesday and was clumsy earlier today, was trying to grab things and was not making much sense and then he found her in the room. It was not a witnessed fall. did not seem concerned that this could be a suicidal attempt but with continuous dropping her glucose this could be a possibility especially with her history of anxiety depressions. I have discussed with Dr. Lizbeth AGRAWAL hospitalist here at [facility], recommended transfer to higher level of care. I have spoken with Dr. Garcia [facility], reviewed history, workup and agreed with transfer. Complexity of problems addressed: High Complexity/amount of data reviewed and analyzed: Extensive Risk of complications/morbidity/mortality of patient management: High risk 12/16/24 00:39 Patient was excepted for transfer to [facility], right before crew was here to pick her up, patient woke up and wanted to be extubated. She was awake and alert, responding accordingly. RT is called and patient is extubated and she is back to her baseline with no confusion. Patient is on room air oxygen saturation of upper 90s. She is not in any distress at all, patient is reporting she took some insulin before all this happened and does not remember most of it. Patient wanted to leave immediately. With patient's history of anxiety/depression and persistently needing IV dextrose I believe patient needs to be observed and further evaluation with behavioral health to make sure it was not a suicidal attempt. Patient is thoroughly counseled and now she is agreeable to staying I have discussed with Dr. Larson hospitalist, reviewed history, workup and agreed with admission. Discussed with Dr.: Other (Dr. Lizbeth AGRAWAL hospitalist [facility], Dr. 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 Larson) Reviewed:: Test results Agreed on:: Treatment plan Will see patient: in hospital - Diagnostic Testing Diagnostic test were ordered, analyzed, and reviewed by me: Yes Radiological Interpretation: Interpreted by me, Reviewed by me, Teleradiologist Report - Risk of complications The pt has a mod risk of morbidity or mortality based on: Need for prescription drug management The pt has a high risk of morbidity or mortality based on: Drug therapy requiring intensive monitoring for toxicity, Decision regarding hospitilization or escalation of hosp level of care - Departure Departure Disposition: Observation Clinical Impression: Hypoglycemia, Fall, Altered mental status, Bilateral pneumonia, Influenza A Condition: Serious Critical Care Time: Yes Critical Care Time(excluding separately billable procedures): Critical 75-104 mins Referrals: SHANDA MATOS MD [Primary Care Provider] - Follow up/PCP as directed
[2024-12-15 20:02] LABS: Absolute Neutrophil Ct (ANC) 5.05 x10^3/uL (1.56-6.13); BASOPHIL % 0.2 % (0.1-1.2); Basophil (Absolute #) 0.01 x10^3/uL (0.01-0.08); Eosinophil % 0.2 % (0.7-5.8); Eosinophil (Absolute #) 0.01 x10^3/uL (0.04-0.36); Hematocrit 31.7 % (34.1-44.9); Hemoglobin 10.4 g/dL (11.2-15.7); IMMATURE GRAN # 0.02 x10^3u/L (0.001-0.031); IMMATURE GRAN % 0.3 % (0.001-0.429); Lymphocyte (Absolute #) 0.91 x10^3/uL (1.18-3.74); Mean Cell Volume 93.5 fL (79.4-94.8); Mean Corpuscular Hemoglobin 30.7 pg (25.6-32.2); Mean Corpuscular Hgb Concent. 32.8 g/dL (32.2-35.5); Mean Platelet Volume 11.4 fL (9.4-12.3); Monocyte (Absolute #) 0.48 x10^3/uL (0.24-0.86); Monocytes % 7.4 % (4.7-12.5); Neutrophil % 77.9 % (34.0-71.1); Platelet Count 143 x10^3/uL (182-369); Red Blood Count 3.39 x10^6/uL (3.93-5.22); Red Cell Distribution Width 12.4 % (11.7-14.4); White Blood Count 6.5 x10^3/uL (3.98-10.04)
[2024-12-15 20:09] LABS: HCG SERUM TEST NEGATIVE (NEGATIVE)
[2024-12-15 20:13] LABS: INR 0.95 (0.8-3.0); PROTIME 10.4 SECONDS (9.4-12.5); PTT 29.4 SECONDS (25.1-36.5)
[2024-12-15 20:23] LABS: Amphetamine,Urine NEGATIVE (NEGATIVE); Barbiturate,Urine NEGATIVE (NEGATIVE); Benzodiazepine,Urine NEGATIVE (NEGATIVE); Cocaine,Urine NEGATIVE (NEGATIVE); Methadone,Urine NEGATIVE (NEGATIVE); Opiate,Urine NEGATIVE (NEGATIVE); PCP,Urine NEGATIVE (NEGATIVE); THC,Urine POSITIVE (NEGATIVE)
[2024-12-15 20:30] LABS: ACETAMINOPHEN < 10 ug/ml (10-30); ALBUMIN 3.6 g/dL (3.5-5.0); ALKALINE PHOSPHATASE 188 U/L (38-126); ANION GAP 12.4 MEQ/L (5-15); BLOOD UREA NITROGEN 10 mg/dL (7-17); CHLORIDE 105 mmol/L (98-107); CK-Creatinine Phosphokinase 81 U/L (30-135); Calcium 7.6 mg/dL (8.4-10.2); Carbon Dioxide 24 mmol/L (22-30); Creatinine 1 0.73 mg/dL (0.52-1.04); EST GLOMERULAR FILTRATION RATE 106.6 ML/MIN; ETHYL ALCOHOL < 10 mg/dL (0-10); Glucose 129 mg/dL (74-106); MAGNESIUM 1.9 mg/dL (1.6-2.3); NT PRO BNPII 255 pg/mL (<300); PROCALCITONIN 0.031 ng/mL (0.030-0.080); Potassium 3.2 mmol/L (3.5-5.1); SALICYLATE < 1.0 mg/dL (2-20); SGOT/AST 47 U/L (14-36); SGPT/ALT 59 U/L (0-35); SODIUM 138 mmol/L (135-145); Total Protein 6.3 g/dL (6.3-8.2)
[2024-12-15 20:38] LABS: INFLUENZA B NEGATIVE (NEGATIVE); RESPIRATORY SYNCTIAL VIRUS NEGATIVE (NEGATIVE); SARS-CoV-2 Xpert Express NEGATIVE (NEGATIVE)
[2024-12-15 20:42] LABS: INFLUENZA A POSITIVE (NEGATIVE)
[2024-12-15] MEDS ORDERED: Propofol 1000 mg/100 ml Bottle 100 ML IV ONE (20:45)
[2024-12-15] MEDS: Propofol 1000 mg/100 ml Bottle 100 ML IV PRN (20:52)
[2024-12-15] MEDS ORDERED: Propofol 1000 mg/100 ml Bottle 100 ML IV PRN ×2 (21:02→21:14)
--- NOTE | 2024-12-15 21:55 | XRAY ---
Indication: Intubation. Comparison: None Portable chest demonstrates endotracheal tube tip approximately 4 cm above aarti. No other support tubing/catheter. Lungs are mildly underinflated with diffuse bilateral airspace disease. No consolidation/large effusion. Heart borderline enlarged. Bony thorax intact.
[2024-12-16 04:09] VITALS: O2SAT 95
--- NOTE | 2024-12-16 05:52 | PCM.HP ---
History of Present Illness - Chief Complaint Chief Complaint: influenza, resp.failure, hyperglycemia, bilateral pneumonia Date: 12/16/24 History of Present Illness: 39 years old very pleasant lady with past medical history significant for type 1 diabetes mellitus, hypothyroidism, anxiety, bipolar/mood disorder, GERD, who initially brought to hospital by EMS finding unresponsive at home for unknown period of time. Patient was found hypoglycemic with blood sugar 43, she did not respond to 3 doses of Narcan and D10, for airway protection she got intubated and there was plan to transfer her to [facility] but by the time the ride arrived patient woke up she pulled out her tube and was back to her normal without any further confusion. Patient told me that she bolused herself with 30 units of short acting insulin before she was ready to eat but after injecting insulin she did not feel like she was able to finish her food and she remained without eating, later on while she was walking from her kitchen area to bedroom all of a sudden she fell on the floor and got unconscious but she denied having any feeling of palpitations sweating chest pain impending doom. She denied injecting too much insulin out of suicide idea. She looks in a good mood and wants to go home to take care of her kids and pets. During the time of my encounter she did not have any other complaint except her chronic back pain and some headache. In the ER the vital signs were pretty stable except blood pressure was around 9754. Heart rate was 90. As well as blood workup concern all came out unremarkable except she was positive for influenza A, urine toxicology was negative serum alcohol level was not not remarkable she got CT facial bones cervical spine and head all came out negative. Patient admitted for close check on her blood sugar and might get benefit from behavioral health consult in morning, - Review of Systems All Other Systems: Reviewed and Negative (14 systems reviewed and marked ve except mentioned in [facility]) Medications & Allergies Home Medications: Home Medication List AMITRIPTYLINE HCL 50 mg Tab [AMITRIPTYLINE HCL 50 mg Tablet] 150 mg PO HS 12/15/24 [History Confirmed 12/15/24] Atorvastatin Calcium [Lipitor 40Mg] 40 mg PO DAILY 12/15/24 [History Confirmed 12/15/24] Buprenorphine HCl/Naloxone HCl [Zubsolv 11.4-2.9 mg Tablet Sl] 1 each SL BID 12/15/24 [History Confirmed 12/15/24] Celecoxib 100 mg [celeBREX 100 MG] 200 mg PO DAILY 12/15/24 [History Confirmed 12/15/24] Cholecalciferol (Vitamin D3) [Vitamin D] 5,000 unit PO WEEKLY 12/15/24 [History Confirmed 12/15/24] Desvenlafaxine Succinate [Desvenlafaxine Succinate ER] 50 mg PO DAILY 12/15/24 [History Confirmed 12/15/24] Divalproex Sodium ER 250 mg [Depakote EXTENDED RELEASE 250 MG] 250 mg PO TID 12/15/24 [History Confirmed 12/15/24] Duloxetine HCl 60 mg PO DAILY 12/15/24 [History Confirmed 12/15/24] Gabapentin 600 mg PO TID 12/15/24 [History Confirmed 12/15/24] Galcanezumab-Gnlm [Emgality] 120 mg SQ UD 12/15/24 [History Confirmed 12/15/24] Glucagon [Gvoke Hypopen 2-Pack] 0.5 mg SQ UD 12/15/24 [History Confirmed 12/15/24] Hydroxyzine HCl 25 mg [Atarax 25 mg] 25 mg PO Q8HPRN PRN 12/15/24 [History Confirmed 12/15/24] Insulin Glargine [Lantus Insulin] 40 unit SQ BID 12/15/24 [History Confirmed 12/15/24] Levothyroxine Sodium [Levothyroxine] 137 mcg PO DAILY 12/15/24 [History Confirmed 12/15/24] Lumateperone Tosylate [Caplyta] 21 mg PO DAILY 12/15/24 [History Confirmed 12/15/24] Metoprolol Tartrate 50 mg [Lopressor 50 MG] 50 mg PO BID 12/15/24 [History Confirmed 12/15/24] Ondansetron ODT 4 MG [Zofran Odt 4 mg] 4 mg PO Q6H PRN PRN 12/15/24 [History Confirmed 12/15/24] PANTOPRAZOLE 40 mg Tablet [Protonix 40MG Tablet] 40 mg PO QAM 12/15/24 [History Confirmed 12/15/24] Sumatriptan Succinate [Imitrex] 50 mg PO UD 12/15/24 [History Confirmed 12/15/24] armodafiniL [Armodafinil] 250 mg PO QAM 12/15/24 [History Confirmed 12/15/24] Allergies/Adverse Reactions: Allergies Allergy/AdvReac Type Severity Reaction Status Date / Time NSAIDS (Non-Steroidal Allergy Unknown Verified 12/15/24 19:59 Anti-Inflamma amoxicillin Allergy Verified 12/15/24 19:59 erythromycin base Allergy Verified 12/15/24 19:59 - Past Medical History Past Medical History: Yes Neurological History: Peripheral Neuropathy Cardiac History: High Cholesterol, Hypertension Endocrine Medical History: Diabetes Type I, Hypothyroidism GI Medical History: GERD, Gallbladder Disease Pyscho-Social History: Anxiety, Depression, Other Comment: ABSCESS OF R KNEE, SEPTIC ARTHRITIS OF R KNEE, ANEMIA, ANXIETY AND DEPRESSION, GERD, HYPOKALEMIA, OBESITY, S/P R TKR (APRIL 26, 2023), DM WITH DIABETIC NEUROPATHY, MOOD AFFECTIVE DISORDER, SAMIR'S DISEASE,, OPEN L ANKLE FRACTURE (2019) AFTER FALLING DOWN BACK STAIR, DKA - Female History Hx Last Menstrual Period: unknown Are you now?: No - Past Surgical History Past Surgical History: Yes Neuro Surgical History: No Pertinent History GI Surgical History: Cholecystectomy Musculskeletal Surgical Hx: Orthopedic Surgery Female Surgical History: Hysterectomy Other Surgical History: no saliva gland on rt side, bilateral carpel tunnel, bladder surgery, left ankle open fracture Significant Family History: no pertinent family hx - Social History Smoking Status: Current every day smoker How long have you smoked: years Exposure to second hand smoke: Yes Alcohol: Rarely Drug Use: other - Social Determinants of Health Will the patient participate in the screening: Yes Do you worry about a steady place to live?: No Do you have any problems with any of the following?: No known problems In the past 12 months,have you had to go without utilities?: No Have you or anyone in your house had to go without enough: No Transportation Issues: No Has anyone in your support network made you feel unsafe?: No Does the patient want assistance with any of the above?: No - Physical Exam Vital Signs: Vital Signs - 24 hr Temp Pulse Resp BP BP Pulse Ox 12/16/24 05:03 98.4 F 101 H 20 145/90 95 02/22/25 04:01 102 H 18 99/58 95 12/16/24 03:21 90/49 96 12/16/24 03:16 99/53 92 L 12/16/24 03:11 95/54 93 L 12/16/24 03:06 106 H 18 92/54 92 L 12/16/24 03:01 112/56 92 L 12/16/24 02:56 116/85 93 L 12/16/24 02:51 109/67 94 L 12/16/24 02:46 110/66 96 12/16/24 02:42 122/83 96 12/16/24 02:41 84 18 122/83 96 12/16/24 01:41 102/68 12/16/24 01:40 115 H 24 98 12/16/24 01:32 112 H 23 96 12/16/24 01:26 116 H 17 116/90 98 12/16/24 01:22 108 H 21 112/81 94 L 12/16/24 01:16 107 H 18 120/72 96 12/16/24 01:11 106 H 17 114/80 95 12/16/24 01:10 93 L 12/16/24 01:07 94 L 12/16/24 01:01 105 H 12 94/76 95 12/16/24 00:57 105 H 20 114/66 94 L 12/16/24 00:56 108 H 21 94/76 94 L 12/16/24 00:52 108 H 22 94 L 12/16/24 00:49 108 H 34 H 119/71 94 L 12/16/24 00:48 105 H 18 96 12/16/24 00:42 99 12/16/24 00:40 106 H 19 12/16/24 00:36 112 H 13 12/16/24 00:00 111 H 20 138/84 100 12/15/24 23:55 84 16 139/82 100 12/15/24 23:50 84 16 138/84 100 12/15/24 23:45 85 16 138/81 100 12/15/24 23:40 84 16 138/82 100 12/15/24 23:35 86 18 135/92 100 12/15/24 23:30 85 16 139/83 100 12/15/24 23:25 83 16 139/83 100 12/15/24 23:20 85 16 136/86 100 12/15/24 23:15 84 16 140/85 100 12/15/24 23:10 84 15 138/85 100 12/15/24 23:05 84 16 140/86 100 12/15/24 23:00 84 16 141/86 100 12/15/24 22:55 85 16 134/87 100 12/15/24 22:50 84 16 141/87 100 12/15/24 22:45 86 16 140/86 100 12/15/24 22:40 86 16 138/85 100 12/15/24 22:35 86 17 134/86 100 12/15/24 22:30 86 16 134/83 100 12/15/24 22:25 88 16 129/81 100 12/15/24 22:20 88 16 127/81 100 12/15/24 22:15 89 16 122/81 100 12/15/24 22:10 90 16 124/82 100 12/15/24 22:05 89 16 125/82 100 12/15/24 22:00 89 16 127/85 100 12/15/24 21:55 90 16 141/88 100 12/15/24 21:51 89 15 126/92 100 12/15/24 21:45 98 H 16 135/90 12/15/24 21:40 90 16 131/88 100 12/15/24 21:35 90 16 129/87 100 12/15/24 21:30 90 16 130/87 100 12/15/24 21:25 90 16 129/86 100 12/15/24 21:20 91 H 19 125/90 100 12/15/24 21:15 90 17 134/88 12/15/24 21:13 90 16 135/87 100 12/15/24 21:06 93 H 21 131/79 100 12/15/24 21:00 99 H 22 141/84 100 12/15/24 20:56 88 18 125/89 100 12/15/24 20:51 91 H 16 137/85 100 12/15/24 20:46 91 H 22 149/89 100 12/15/24 20:40 90 18 143/88 100 12/15/24 20:35 91 H 19 127/105 100 12/15/24 20:30 91 H 17 140/92 12/15/24 20:25 91 H 17 135/87 100 12/15/24 20:20 89 16 137/88 12/15/24 20:15 93 H 17 151/93 100 12/15/24 20:12 87 5 L 12/15/24 19:55 136/85 12/15/24 19:50 88 16 137/86 100 12/15/24 19:45 90 19 133/86 12/15/24 19:41 90 16 143/74 12/15/24 19:35 86 16 132/79 100 12/15/24 19:31 87 16 117/77 100 12/15/24 19:25 91 H 16 137/84 100 12/15/24 19:09 96.4 F 90 30 H 97/64 99 Additional Findings: 12/16/24 05:50 HEENT Young aged, Obese built in no distress NECK Supple,no thyromegaly, CVS S1+S2 + 0, no murmers RESP Bilateral equal air entry without Crepts/Wheezes heard GIT Soft non tender,non distended Skin, No rah, no Bruises LEGS No Edema PSYCH Normal,mood, judgement and insight NEURO AOX3, no focal deficit Results - Labs Lab/Micro Results: Lab Results-Last 24 Hours 12/15/24 12/15/24 12/15/24 Range/Units 19:23 19:28 19:40 WBC 6.5 (3.98-10.04) x10^3/uL RBC 3.39 L (3.93-5.22) x10^6/uL Hgb 10.4 L (11.2-15.7) g/dL Hct 31.7 L (34.1-44.9) % MCV 93.5 (79.4-94.8) fL MCH 30.7 (25.6-32.2) pg MCHC 32.8 (32.2-35.5) g/dL RDW 12.4 (11.7-14.4) % Plt Count 143 L (182-369) x10^3/uL MPV 11.4 (9.4-12.3) fL Gran % 77.9 H (34.0-71.1) % Immature Gran % (Auto) 0.3 (0.001-0.429) % Nucleat RBC Rel Count 0.0 (0.00-0.2) % Eos # (Auto) 0.01 L (0.04-0.36) x10^3/uL Immature Gran # (Auto) 0.02 (0.001-0.031) x10^3u/L Absolute Lymphs (auto) 0.91 L (1.18-3.74) x10^3/uL Absolute Monos (auto) 0.48 (0.24-0.86) x10^3/uL Absolute Nucleated RBC 0.00 (0.00-0.012) x10^3u/L Lymphocytes % 14.0 L (19.3-51.7) % Monocytes % 7.4 (4.7-12.5) % Eosinophils % 0.2 L (0.7-5.8) % Basophils % 0.2 (0.1-1.2) % Absolute Granulocytes 5.05 (1.56-6.13) x10^3/uL Basophils # 0.01 (0.01-0.08) x10^3/uL PT (9.4-12.5) SECONDS INR (0.8-3.0) APTT (25.1-36.5) SECONDS Puncture Site RIGHT BRACHIAL pCO2 36 (35-45) mmHg pO2 240 H* (75-100) mmHg Base Excess -1.5 (-2.0-2.0) O2 Saturation 98.0 (94-100) g/dF ABG pH 7.41 (7.35-7.45) ABG HCO3 22.8 (22-28) ABG O2 Sat (Measured) 99.6 (95-100) % Shan Test YES A-a Gradient 428 a/A Ratio 0.36 Hemoglobin 10.2 Carboxyhemoglobin 1.0 (0.0-6.9) % THgb Methemoglobin 0.6 L (1.4-1.5) % Potassium 3.0 L (3.5-5.1) Temperature 37.0 C POC O2 Flow Rate 100 % Vent Mode VC/AC Vent Rate 16 /MIN Tidal Volume 700 cc PEEP 5 cmH2O Sodium (135-145) mmol/L Chloride (98-107) mmol/L Carbon Dioxide (22-30) mmol/L Anion Gap (5-15) MEQ/L BUN (7-17) mg/dL Creatinine (0.52-1.04) mg/dL Estimated GFR ML/MIN Glucose (74-106) mg/dL POC Glucometer 114 H (74 to 106) mg/dL Lactic Acid 0.9 (0.4-2.0) Calcium (8.4-10.2) mg/dL Magnesium (1.6-2.3) mg/dL Total Bilirubin (0.2-1.3) mg/dL AST (14-36) U/L ALT (0-35) U/L Alkaline Phosphatase (38-126) U/L Creatine Kinase (30-135) U/L Troponin I (0.000-0.033) ng/mL NT-Pro-B Natriuret Pep (<300) pg/mL Serum Total Protein (6.3-8.2) g/dL Albumin (3.5-5.0) g/dL Procalcitonin (0.030-0.080) ng/mL Serum HCG, Qual (NEGATIVE) Salicylates (2-20) mg/dL Urine Opiates Level (NEGATIVE) Ur Methadone (NEGATIVE) Acetaminophen (10-30) ug/ml Urine Barbiturates (NEGATIVE) Ur Phencyclidine (PCP) (NEGATIVE) Urine Amphetamine (NEGATIVE) U Benzodiazepine Level (NEGATIVE) Urine Cocaine (NEGATIVE) Urine Marijuana (THC) (NEGATIVE) Ethyl Alcohol (0-10) mg/dL Influenza Type A Ag (NEGATIVE) Influenza Type B Ag (NEGATIVE) RSV (PCR) (NEGATIVE) SARS-CoV-2 (PCR) (NEGATIVE) 12/15/24 12/15/24 12/15/24 Range/Units 19:40 19:40 19:40 WBC (3.98-10.04) x10^3/uL RBC (3.93-5.22) x10^6/uL Hgb (11.2-15.7) g/dL Hct (34.1-44.9) % MCV (79.4-94.8) fL MCH (25.6-32.2) pg MCHC (32.2-35.5) g/dL RDW (11.7-14.4) % Plt Count (182-369) x10^3/uL MPV (9.4-12.3) fL Gran % (34.0-71.1) % Immature Gran % (Auto) (0.001-0.429) % Nucleat RBC Rel Count (0.00-0.2) % Eos # (Auto) (0.04-0.36) x10^3/uL Immature Gran # (Auto) (0.001-0.031) x10^3u/L Absolute Lymphs (auto) (1.18-3.74) x10^3/uL Absolute Monos (auto) (0.24-0.86) x10^3/uL Absolute Nucleated RBC (0.00-0.012) x10^3u/L Lymphocytes % (19.3-51.7) % Monocytes % (4.7-12.5) % Eosinophils % (0.7-5.8) % Basophils % (0.1-1.2) % Absolute Granulocytes (1.56-6.13) x10^3/uL Basophils # (0.01-0.08) x10^3/uL PT (9.4-12.5) SECONDS INR (0.8-3.0) APTT (25.1-36.5) SECONDS Puncture Site pCO2 (35-45) mmHg pO2 (75-100) mmHg Base Excess (-2.0-2.0) O2 Saturation (94-100) g/dF ABG pH (7.35-7.45) ABG HCO3 (22-28) ABG O2 Sat (Measured) (95-100) % Shan Test A-a Gradient a/A Ratio Hemoglobin Carboxyhemoglobin (0.0-6.9) % THgb Methemoglobin (1.4-1.5) % Potassium 3.2 L (3.5-5.1) Temperature C POC O2 Flow Rate % Vent Mode Vent Rate /MIN Tidal Volume cc PEEP cmH2O Sodium 138 (135-145) mmol/L Chloride 105 (98-107) mmol/L Carbon Dioxide 24 (22-30) mmol/L Anion Gap 12.4 (5-15) MEQ/L BUN 10 (7-17) mg/dL Creatinine 0.73 (0.52-1.04) mg/dL Estimated GFR 106.6 ML/MIN Glucose 129 H (74-106) mg/dL POC Glucometer (74 to 106) mg/dL Lactic Acid (0.4-2.0) Calcium 7.6 L (8.4-10.2) mg/dL Magnesium 1.9 (1.6-2.3) mg/dL Total Bilirubin 0.50 (0.2-1.3) mg/dL AST 47 H (14-36) U/L ALT 59 H (0-35) U/L Alkaline Phosphatase 188 H (38-126) U/L Creatine Kinase 81 (30-135) U/L Troponin I < 0.012 (0.000-0.033) ng/mL NT-Pro-B Natriuret Pep 255 (<300) pg/mL Serum Total Protein 6.3 (6.3-8.2) g/dL Albumin 3.6 (3.5-5.0) g/dL Procalcitonin 0.031 (0.030-0.080) ng/mL Serum HCG, Qual NEGATIVE (NEGATIVE) Salicylates < 1.0 L (2-20) mg/dL Urine Opiates Level (NEGATIVE) Ur Methadone (NEGATIVE) Acetaminophen < 10 L (10-30) ug/ml Urine Barbiturates (NEGATIVE) Ur Phencyclidine (PCP) (NEGATIVE) Urine Amphetamine (NEGATIVE) U Benzodiazepine Level (NEGATIVE) Urine Cocaine (NEGATIVE) Urine Marijuana (THC) (NEGATIVE) Ethyl Alcohol < 10 (0-10) mg/dL Influenza Type A Ag (NEGATIVE) Influenza Type B Ag (NEGATIVE) RSV (PCR) (NEGATIVE) SARS-CoV-2 (PCR) (NEGATIVE) 12/15/24 12/15/24 12/15/24 Range/Units 19:40 19:40 19:40 WBC (3.98-10.04) x10^3/uL RBC (3.93-5.22) x10^6/uL Hgb (11.2-15.7) g/dL Hct (34.1-44.9) % MCV (79.4-94.8) fL MCH (25.6-32.2) pg MCHC (32.2-35.5) g/dL RDW (11.7-14.4) % Plt Count (182-369) x10^3/uL MPV (9.4-12.3) fL Gran % (34.0-71.1) % Immature Gran % (Auto) (0.001-0.429) % Nucleat RBC Rel Count (0.00-0.2) % Eos # (Auto) (0.04-0.36) x10^3/uL Immature Gran # (Auto) (0.001-0.031) x10^3u/L Absolute Lymphs (auto) (1.18-3.74) x10^3/uL Absolute Monos (auto) (0.24-0.86) x10^3/uL Absolute Nucleated RBC (0.00-0.012) x10^3u/L Lymphocytes % (19.3-51.7) % Monocytes % (4.7-12.5) % Eosinophils % (0.7-5.8) % Basophils % (0.1-1.2) % Absolute Granulocytes (1.56-6.13) x10^3/uL Basophils # (0.01-0.08) x10^3/uL PT 10.4 (9.4-12.5) SECONDS INR 0.95 (0.8-3.0) APTT 29.4 (25.1-36.5) SECONDS Puncture Site pCO2 (35-45) mmHg pO2 (75-100) mmHg Base Excess (-2.0-2.0) O2 Saturation (94-100) g/dF ABG pH (7.35-7.45) ABG HCO3 (22-28) ABG O2 Sat (Measured) (95-100) % Shan Test A-a Gradient a/A Ratio Hemoglobin Carboxyhemoglobin (0.0-6.9) % THgb Methemoglobin (1.4-1.5) % Potassium (3.5-5.1) Temperature C POC O2 Flow Rate % Vent Mode Vent Rate /MIN Tidal Volume cc PEEP cmH2O Sodium (135-145) mmol/L Chloride (98-107) mmol/L Carbon Dioxide (22-30) mmol/L Anion Gap (5-15) MEQ/L BUN (7-17) mg/dL Creatinine (0.52-1.04) mg/dL Estimated GFR ML/MIN Glucose (74-106) mg/dL POC Glucometer 87 (74 to 106) mg/dL Lactic Acid (0.4-2.0) Calcium (8.4-10.2) mg/dL Magnesium (1.6-2.3) mg/dL Total Bilirubin (0.2-1.3) mg/dL AST (14-36) U/L ALT (0-35) U/L Alkaline Phosphatase (38-126) U/L Creatine Kinase (30-135) U/L Troponin I (0.000-0.033) ng/mL NT-Pro-B Natriuret Pep (<300) pg/mL Serum Total Protein (6.3-8.2) g/dL Albumin (3.5-5.0) g/dL Procalcitonin (0.030-0.080) ng/mL Serum HCG, Qual (NEGATIVE) Salicylates (2-20) mg/dL Urine Opiates Level (NEGATIVE) Ur Methadone (NEGATIVE) Acetaminophen (10-30) ug/ml Urine Barbiturates (NEGATIVE) Ur Phencyclidine (PCP) (NEGATIVE) Urine Amphetamine (NEGATIVE) U Benzodiazepine Level (NEGATIVE) Urine Cocaine (NEGATIVE) Urine Marijuana (THC) (NEGATIVE) Ethyl Alcohol (0-10) mg/dL Influenza Type A Ag POSITIVE A (NEGATIVE) Influenza Type B Ag NEGATIVE (NEGATIVE) RSV (PCR) NEGATIVE (NEGATIVE) SARS-CoV-2 (PCR) NEGATIVE (NEGATIVE) 12/15/24 12/15/24 12/15/24 Range/Units 19:55 20:00 20:19 WBC (3.98-10.04) x10^3/uL RBC (3.93-5.22) x10^6/uL Hgb (11.2-15.7) g/dL Hct (34.1-44.9) % MCV (79.4-94.8) fL MCH (25.6-32.2) pg MCHC (32.2-35.5) g/dL RDW (11.7-14.4) % Plt Count (182-369) x10^3/uL MPV (9.4-12.3) fL Gran % (34.0-71.1) % Immature Gran % (Auto) (0.001-0.429) % Nucleat RBC Rel Count (0.00-0.2) % Eos # (Auto) (0.04-0.36) x10^3/uL Immature Gran # (Auto) (0.001-0.031) x10^3u/L Absolute Lymphs (auto) (1.18-3.74) x10^3/uL Absolute Monos (auto) (0.24-0.86) x10^3/uL Absolute Nucleated RBC (0.00-0.012) x10^3u/L Lymphocytes % (19.3-51.7) % Monocytes % (4.7-12.5) % Eosinophils % (0.7-5.8) % Basophils % (0.1-1.2) % Absolute Granulocytes (1.56-6.13) x10^3/uL Basophils # (0.01-0.08) x10^3/uL PT (9.4-12.5) SECONDS INR (0.8-3.0) APTT (25.1-36.5) SECONDS Puncture Site pCO2 (35-45) mmHg pO2 (75-100) mmHg Base Excess (-2.0-2.0) O2 Saturation (94-100) g/dF ABG pH (7.35-7.45) ABG HCO3 (22-28) ABG O2 Sat (Measured) (95-100) % Shan Test A-a Gradient a/A Ratio Hemoglobin Carboxyhemoglobin (0.0-6.9) % THgb Methemoglobin (1.4-1.5) % Potassium (3.5-5.1) Temperature C POC O2 Flow Rate % Vent Mode Vent Rate /MIN Tidal Volume cc PEEP cmH2O Sodium (135-145) mmol/L Chloride (98-107) mmol/L Carbon Dioxide (22-30) mmol/L Anion Gap (5-15) MEQ/L BUN (7-17) mg/dL Creatinine (0.52-1.04) mg/dL Estimated GFR ML/MIN Glucose (74-106) mg/dL POC Glucometer 129 H 120 H (74 to 106) mg/dL Lactic Acid (0.4-2.0) Calcium (8.4-10.2) mg/dL Magnesium (1.6-2.3) mg/dL Total Bilirubin (0.2-1.3) mg/dL AST (14-36) U/L ALT (0-35) U/L Alkaline Phosphatase (38-126) U/L Creatine Kinase (30-135) U/L Troponin I (0.000-0.033) ng/mL NT-Pro-B Natriuret Pep (<300) pg/mL Serum Total Protein (6.3-8.2) g/dL Albumin (3.5-5.0) g/dL Procalcitonin (0.030-0.080) ng/mL Serum HCG, Qual (NEGATIVE) Salicylates (2-20) mg/dL Urine Opiates Level NEGATIVE (NEGATIVE) Ur Methadone NEGATIVE (NEGATIVE) Acetaminophen (10-30) ug/ml Urine Barbiturates NEGATIVE (NEGATIVE) Ur Phencyclidine (PCP) NEGATIVE (NEGATIVE) Urine Amphetamine NEGATIVE (NEGATIVE) U Benzodiazepine Level NEGATIVE (NEGATIVE) Urine Cocaine NEGATIVE (NEGATIVE) Urine Marijuana (THC) POSITIVE A (NEGATIVE) Ethyl Alcohol (0-10) mg/dL Influenza Type A Ag (NEGATIVE) Influenza Type B Ag (NEGATIVE) RSV (PCR) (NEGATIVE) SARS-CoV-2 (PCR) (NEGATIVE) 12/15/24 12/15/24 12/15/24 Range/Units 20:41 21:18 22:05 WBC (3.98-10.04) x10^3/uL RBC (3.93-5.22) x10^6/uL Hgb (11.2-15.7) g/dL Hct (34.1-44.9) % MCV (79.4-94.8) fL MCH (25.6-32.2) pg MCHC (32.2-35.5) g/dL RDW (11.7-14.4) % Plt Count (182-369) x10^3/uL MPV (9.4-12.3) fL Gran % (34.0-71.1) % Immature Gran % (Auto) (0.001-0.429) % Nucleat RBC Rel Count (0.00-0.2) % Eos # (Auto) (0.04-0.36) x10^3/uL Immature Gran # (Auto) (0.001-0.031) x10^3u/L Absolute Lymphs (auto) (1.18-3.74) x10^3/uL Absolute Monos (auto) (0.24-0.86) x10^3/uL Absolute Nucleated RBC (0.00-0.012) x10^3u/L Lymphocytes % (19.3-51.7) % Monocytes % (4.7-12.5) % Eosinophils % (0.7-5.8) % Basophils % (0.1-1.2) % Absolute Granulocytes (1.56-6.13) x10^3/uL Basophils # (0.01-0.08) x10^3/uL PT (9.4-12.5) SECONDS INR (0.8-3.0) APTT (25.1-36.5) SECONDS Puncture Site pCO2 (35-45) mmHg pO2 (75-100) mmHg Base Excess (-2.0-2.0) O2 Saturation (94-100) g/dF ABG pH (7.35-7.45) ABG HCO3 (22-28) ABG O2 Sat (Measured) (95-100) % Shan Test A-a Gradient a/A Ratio Hemoglobin Carboxyhemoglobin (0.0-6.9) % THgb Methemoglobin (1.4-1.5) % Potassium (3.5-5.1) Temperature C POC O2 Flow Rate % Vent Mode Vent Rate /MIN Tidal Volume cc PEEP cmH2O Sodium (135-145) mmol/L Chloride (98-107) mmol/L Carbon Dioxide (22-30) mmol/L Anion Gap (5-15) MEQ/L BUN (7-17) mg/dL Creatinine (0.52-1.04) mg/dL Estimated GFR ML/MIN Glucose (74-106) mg/dL POC Glucometer 111 H 122 H 111 H (74 to 106) mg/dL Lactic Acid (0.4-2.0) Calcium (8.4-10.2) mg/dL Magnesium (1.6-2.3) mg/dL Total Bilirubin (0.2-1.3) mg/dL AST (14-36) U/L ALT (0-35) U/L Alkaline Phosphatase (38-126) U/L Creatine Kinase (30-135) U/L Troponin I (0.000-0.033) ng/mL NT-Pro-B Natriuret Pep (<300) pg/mL Serum Total Protein (6.3-8.2) g/dL Albumin (3.5-5.0) g/dL Procalcitonin (0.030-0.080) ng/mL Serum HCG, Qual (NEGATIVE) Salicylates (2-20) mg/dL Urine Opiates Level (NEGATIVE) Ur Methadone (NEGATIVE) Acetaminophen (10-30) ug/ml Urine Barbiturates (NEGATIVE) Ur Phencyclidine (PCP) (NEGATIVE) Urine Amphetamine (NEGATIVE) U Benzodiazepine Level (NEGATIVE) Urine Cocaine (NEGATIVE) Urine Marijuana (THC) (NEGATIVE) Ethyl Alcohol (0-10) mg/dL Influenza Type A Ag (NEGATIVE) Influenza Type B Ag (NEGATIVE) RSV (PCR) (NEGATIVE) SARS-CoV-2 (PCR) (NEGATIVE) 12/15/24 12/15/24 12/15/24 Range/Units 22:41 23:47 23:47 WBC (3.98-10.04) x10^3/uL RBC (3.93-5.22) x10^6/uL Hgb (11.2-15.7) g/dL Hct (34.1-44.9) % MCV (79.4-94.8) fL MCH (25.6-32.2) pg MCHC (32.2-35.5) g/dL RDW (11.7-14.4) % Plt Count (182-369) x10^3/uL MPV (9.4-12.3) fL Gran % (34.0-71.1) % Immature Gran % (Auto) (0.001-0.429) % Nucleat RBC Rel Count (0.00-0.2) % Eos # (Auto) (0.04-0.36) x10^3/uL Immature Gran # (Auto) (0.001-0.031) x10^3u/L Absolute Lymphs (auto) (1.18-3.74) x10^3/uL Absolute Monos (auto) (0.24-0.86) x10^3/uL Absolute Nucleated RBC (0.00-0.012) x10^3u/L Lymphocytes % (19.3-51.7) % Monocytes % (4.7-12.5) % Eosinophils % (0.7-5.8) % Basophils % (0.1-1.2) % Absolute Granulocytes (1.56-6.13) x10^3/uL Basophils # (0.01-0.08) x10^3/uL PT (9.4-12.5) SECONDS INR (0.8-3.0) APTT (25.1-36.5) SECONDS Puncture Site pCO2 (35-45) mmHg pO2 (75-100) mmHg Base Excess (-2.0-2.0) O2 Saturation (94-100) g/dF ABG pH (7.35-7.45) ABG HCO3 (22-28) ABG O2 Sat (Measured) (95-100) % Shan Test A-a Gradient a/A Ratio Hemoglobin Carboxyhemoglobin (0.0-6.9) % THgb Methemoglobin (1.4-1.5) % Potassium (3.5-5.1) Temperature C POC O2 Flow Rate % Vent Mode Vent Rate /MIN Tidal Volume cc PEEP cmH2O Sodium (135-145) mmol/L Chloride (98-107) mmol/L Carbon Dioxide (22-30) mmol/L Anion Gap (5-15) MEQ/L BUN (7-17) mg/dL Creatinine (0.52-1.04) mg/dL Estimated GFR ML/MIN Glucose (74-106) mg/dL POC Glucometer 154 H 198 H 198 H (74 to 106) mg/dL Lactic Acid (0.4-2.0) Calcium (8.4-10.2) mg/dL Magnesium (1.6-2.3) mg/dL Total Bilirubin (0.2-1.3) mg/dL AST (14-36) U/L ALT (0-35) U/L Alkaline Phosphatase (38-126) U/L Creatine Kinase (30-135) U/L Troponin I (0.000-0.033) ng/mL NT-Pro-B Natriuret Pep (<300) pg/mL Serum Total Protein (6.3-8.2) g/dL Albumin (3.5-5.0) g/dL Procalcitonin (0.030-0.080) ng/mL Serum HCG, Qual (NEGATIVE) Salicylates (2-20) mg/dL Urine Opiates Level (NEGATIVE) Ur Methadone (NEGATIVE) Acetaminophen (10-30) ug/ml Urine Barbiturates (NEGATIVE) Ur Phencyclidine (PCP) (NEGATIVE) Urine Amphetamine (NEGATIVE) U Benzodiazepine Level (NEGATIVE) Urine Cocaine (NEGATIVE) Urine Marijuana (THC) (NEGATIVE) Ethyl Alcohol (0-10) mg/dL Influenza Type A Ag (NEGATIVE) Influenza Type B Ag (NEGATIVE) RSV (PCR) (NEGATIVE) SARS-CoV-2 (PCR) (NEGATIVE) 12/15/24 12/16/24 Range/Units 23:54 04:34 WBC (3.98-10.04) x10^3/uL RBC (3.93-5.22) x10^6/uL Hgb (11.2-15.7) g/dL Hct (34.1-44.9) % MCV (79.4-94.8) fL MCH (25.6-32.2) pg MCHC (32.2-35.5) g/dL RDW (11.7-14.4) % Plt Count (182-369) x10^3/uL MPV (9.4-12.3) fL Gran % (34.0-71.1) % Immature Gran % (Auto) (0.001-0.429) % Nucleat RBC Rel Count (0.00-0.2) % Eos # (Auto) (0.04-0.36) x10^3/uL Immature Gran # (Auto) (0.001-0.031) x10^3u/L Absolute Lymphs (auto) (1.18-3.74) x10^3/uL Absolute Monos (auto) (0.24-0.86) x10^3/uL Absolute Nucleated RBC (0.00-0.012) x10^3u/L Lymphocytes % (19.3-51.7) % Monocytes % (4.7-12.5) % Eosinophils % (0.7-5.8) % Basophils % (0.1-1.2) % Absolute Granulocytes (1.56-6.13) x10^3/uL Basophils # (0.01-0.08) x10^3/uL PT (9.4-12.5) SECONDS INR (0.8-3.0) APTT (25.1-36.5) SECONDS Puncture Site pCO2 (35-45) mmHg pO2 (75-100) mmHg Base Excess (-2.0-2.0) O2 Saturation (94-100) g/dF ABG pH (7.35-7.45) ABG HCO3 (22-28) ABG O2 Sat (Measured) (95-100) % Shan Test A-a Gradient a/A Ratio Hemoglobin Carboxyhemoglobin (0.0-6.9) % THgb Methemoglobin (1.4-1.5) % Potassium (3.5-5.1) Temperature C POC O2 Flow Rate % Vent Mode Vent Rate /MIN Tidal Volume cc PEEP cmH2O Sodium (135-145) mmol/L Chloride (98-107) mmol/L Carbon Dioxide (22-30) mmol/L Anion Gap (5-15) MEQ/L BUN (7-17) mg/dL Creatinine (0.52-1.04) mg/dL Estimated GFR ML/MIN Glucose (74-106) mg/dL POC Glucometer 212 H 226 H (74 to 106) mg/dL Lactic Acid (0.4-2.0) Calcium (8.4-10.2) mg/dL Magnesium (1.6-2.3) mg/dL Total Bilirubin (0.2-1.3) mg/dL AST (14-36) U/L ALT (0-35) U/L Alkaline Phosphatase (38-126) U/L Creatine Kinase (30-135) U/L Troponin I (0.000-0.033) ng/mL NT-Pro-B Natriuret Pep (<300) pg/mL Serum Total Protein (6.3-8.2) g/dL Albumin (3.5-5.0) g/dL Procalcitonin (0.030-0.080) ng/mL Serum HCG, Qual (NEGATIVE) Salicylates (2-20) mg/dL Urine Opiates Level (NEGATIVE) Ur Methadone (NEGATIVE) Acetaminophen (10-30) ug/ml Urine Barbiturates (NEGATIVE) Ur Phencyclidine (PCP) (NEGATIVE) Urine Amphetamine (NEGATIVE) U Benzodiazepine Level (NEGATIVE) Urine Cocaine (NEGATIVE) Urine Marijuana (THC) (NEGATIVE) Ethyl Alcohol (0-10) mg/dL Influenza Type A Ag (NEGATIVE) Influenza Type B Ag (NEGATIVE) RSV (PCR) (NEGATIVE) SARS-CoV-2 (PCR) (NEGATIVE) - Radiology Impressions Radiology Exams & Impressions: Radiology Procedures Category Date Time Status CERVICAL SPINE WO CONTRAST [CT] Stat Exams 12/15/24 19:36 Taken CHEST 1 VIEW (PORTABLE) Stat Exams 12/15/24 19:21 Completed CHEST 1 VIEW (PORTABLE) Stat Exams 12/15/24 19:46 Taken FACIAL BONES WO CONTRAST [CT] Stat Exams 12/15/24 19:36 Taken HEAD WITHOUT CONTRAST [CT] Stat Exams 12/15/24 19:36 Taken - Other Procedures and Tests Respiratory Therapy 12/16/24 04:26 Respiratory Therapy Consult ONCE Assessment/Plan (1) Altered mental status Current Visit: Yes Status: Acute Code(s): R41.82 - ALTERED MENTAL STATUS, UNSPECIFIED (2) Hypoglycemia Current Visit: Yes Status: Acute Code(s): E16.2 - HYPOGLYCEMIA, UNSPECIFIED (3) Acute exacerbation of chronic low back pain Current Visit: No Status: Acute Code(s): M54.50 - LOW BACK PAIN, UNSPECIFIED; G89.29 - OTHER CHRONIC PAIN (4) Diabetes Current Visit: No Status: Acute Code(s): E11.9 - TYPE 2 DIABETES MELLITUS WITHOUT COMPLICATIONS Telemedicine Encounter - Telemedicine Encounter Telemedicine Encounter: The entirety of this encounter was performed via TelemedicineThis visit was performed using real-time audio and video connection between my location and thepatients locationwith the assistance of a surrogateat the patients location. Written or verbal consent was obtained from the patient/guardian to perform this visit using[employer] technology. Any patient questions regarding the telemedicine interaction were answered. Acute encephalopathy, metabolic Seems hypoglycemia induced CT head negative Urine toxicology unremarkable ,ethnol level < 10 Patient is currently back to baseline AOx3 Acute respiratory failure, Improved Due to underlying encephalopathy Patient got intubated to protect her airway as soon as she woke up she Pulled out her tube Currently on room air Hypoglycemia Patient bolused herself with 13 units short-acting but was not able to eat after that Blood sugar level upon arrival 43 Initially started on D10, with subsequent improvement of blood sugar She is currently off from D10 blood sugar level is more than 100 Close monitoring her blood sugar Patient denied using insulin out of concern of suicide or thoughts of harming herself, she will get benefit from behavioral health consult in the morning Type 1 diabetes mellitus Will check HbA1c Patient is on 40 units at home And blood sugar remain stable more than 100 we can restart her Lantus at low- dose to avoid DKA Influenza A infection Tested +ve for INfluenza A Started Tamiflu day # 1/5 Tachycardia will resume metoprolol Hypothyroidism Will resume home levothyroxine Mood disorder/anxiety Resume home meds including bupropion, Depakote Hyperlipidemia Resume home Lipitor Morbid Obesity BMI > 40 Needs dietry advise /Execise for weight reduction DVT prophylaxis SCD CODE STATUS full Discharge planning hopefully home soon. I have reviewed recent lab vitals and imaging in detail question and concerns were addressed
[2024-12-16] MEDS ORDERED: ZOFRAN ODT 4 MG PO PRN (06:08)
[2024-12-16] MEDS ORDERED: ATARAX 25 MG PO PRN (06:08)
[2024-12-16] MEDS ORDERED: HUMALOG SQ PRN (06:10)
[2024-12-16] MEDS ORDERED: GALCANEZUMAB GNLM 120 MG/ML SQ SCH (06:15)
[2024-12-16 07:32] VITALS: BP 128/78; PULSE 91; RESP 17; TEMP 98.3
[2024-12-16] MEDS ORDERED: D50W 50 ml Abboject IV PRN (07:53)
[2024-12-16] MEDS ORDERED: Glutose 15 GM ORAL GEL PO PRN (07:53)
[2024-12-16] MEDS: Sodium Chloride 0.9% 1000 ML 1,000 ML IV STA (07:57)
[2024-12-16] MEDS: D50W 50 ml Abboject IV ONE (07:58)
[2024-12-16] MEDS: Tamiflu 75MG Capsule PO ONE (07:58)
[2024-12-16] MEDS: AZACTAM 1 GM*** 2 GM in Sodium Chloride 0.9% 100 ML IV ONE (07:58)
[2024-12-16] MEDS: LEVOFLOXACIN 750MG/150ML D5W 750 MG/150 ML BAG IV STA (07:58)
[2024-12-16] MEDS ORDERED: MEDICATION INTERVENTION MC SCH ×4 (08:15)
--- NOTE | 2024-12-16 08:15 | XRAY ---
Indication: NG tube placement. Comparison: Taken earlier in the day. Portable chest demonstrates new NG tube traversing chest with tip not included in [id number] but presumed in distal stomach. Stable endotracheal tube tip 4 cm above aarti. Lungs again demonstrates diffuse bilateral airspace disease. Heart within normal limits for AP portable technique. No new cardiopulmonary abnormalities.
--- NOTE | 2024-12-16 08:17 | XRAY ---
Indication: Status post fall. Unresponsive. Multiple contiguous axial images obtained through the head without contrast. Comparison: None Normal appearing brain parenchyma, ventricles, and bony calvarium for patient's age. Moderate mucosal thickening both ethmoid and right maxillary sinuses with right maxillary sinus fluid leveling. Incompletely visualized endotracheal and orogastric tubing. Impression: No acute intracranial abnormalities. Incidental paranasal sinus disease.
--- NOTE | 2024-12-16 08:23 | XRAY ---
Indication: Status post fall. Unresponsive. Multiple contiguous axial images obtained through the cervical spine. Sagittal and coronal reformatted images obtained. Comparison: None Axial images negative for acute fracture, suspicious bony lesions, or spinal canal stenosis. Minimal C4-C6 degenerative endplate spurring. Sagittal and coronal reformatted images demonstrates lordotic straightening, positional versus paraspinal spasm. Vertebral body heights/disc spaces maintained. No acute compression fracture or jumped facet. Normal appearing craniocervical junction. Visualized soft tissues demonstrates 2.2 x 3.3 cm left submandibular lymphadenopathy. Smaller multiple cervical, submandibular, and supraclavicular nodes bilaterally. Lung apices demonstrates incompletely visualized hazy interstitial alveolar opacities and small bilateral effusions. Also incompletely visualized endotracheal and orogastric tubing. Impression: 1. Negative acute fracture/subluxation. Cervical lordotic straightening, positional versus paraspinal spasm. 2. Minimal C4-C6 degenerative changes. 3. Left submandibular lymphadenopathy with smaller bilateral cervical, submandibular, and supraclavicular nodes. Findings either reactive to inflammatory/infectious process. Malignancy not completely excluded. 4. Incompletely visualized biapical interstitial alveolar opacities and small effusions.
--- NOTE | 2024-12-16 08:25 | XRAY ---
Indication: Status post fall. Unresponsive. Multiple contiguous axial images obtained through the facial bones. Sagittal and coronal reformatted images obtained. Comparison: None A few bilateral dental amalgams produces beam artifact. Multiple dental caries. No acute fracture or suspicious bony lesions. Orbits including roof, parekh, and floors intact. Moderate mucosal thickening both ethmoid and right maxillary sinuses with right maxillary sinus fluid leveling. Both nasal passages demonstrates moderate mucosal thickening with minimal nasoseptal deviation to the right. Visualized soft tissues demonstrates 2.2 x 3.3 cm left submandibular lymphadenopathy. Smaller multiple cervical and submandibular nodes bilaterally. Also incompletely visualized endotracheal and orogastric tubing. CT head and CT cervical spine reported separately. Impression: 1. Negative acute fracture. 2. Left submandibular lymphadenopathy with smaller bilateral cervical, submandibular, and supraclavicular nodes. Findings either reactive to inflammatory/infectious process. Malignancy not completely excluded. 3. Incidental multiple dental caries and paranasal sinus disease.
[2024-12-16 08:46] LABS: Hematocrit 34.4 % (34.1-44.9); Hemoglobin 11.5 g/dL (11.2-15.7); Mean Cell Volume 90.8 fL (79.4-94.8); Mean Corpuscular Hemoglobin 30.3 pg (25.6-32.2); Mean Corpuscular Hgb Concent. 33.4 g/dL (32.2-35.5); Mean Platelet Volume 11.1 fL (9.4-12.3); Platelet Count 178 x10^3/uL (182-369); Red Blood Count 3.79 x10^6/uL (3.93-5.22); Red Cell Distribution Width 12.4 % (11.7-14.4); White Blood Count 5.6 x10^3/uL (3.98-10.04)
[2024-12-16 09:02] LABS: ALBUMIN 4.1 g/dL (3.5-5.0); ANION GAP 12.9 MEQ/L (5-15); BILIRUBIN,TOTAL 0.5 mg/dL (0.2-1.3); Calcium 8.7 mg/dL (8.4-10.2); Creatinine 1 0.58 mg/dL (0.52-1.04); EST GLOMERULAR FILTRATION RATE 117.3 ML/MIN; Potassium 3.8 mmol/L (3.5-5.1)
[2024-12-16] MEDS: ZOCOR 20MG PO SCH (09:31)
[2024-12-16] MEDS: NEURONTIN PO SCH (09:32)
[2024-12-16] MEDS: SYNTHROID 25 MCG PO SCH (09:32)
[2024-12-16] MEDS: Tamiflu 75MG Capsule PO SCH (09:32)
[2024-12-16] MEDS: celeBREX 100 MG PO SCH (09:32)
[2024-12-16] MEDS: Cymbalta 30 MG Capsule PO SCH (09:32)
[2024-12-16] MEDS: Protonix 40MG Tablet PO SCH (09:32)
[2024-12-16] MEDS: PRISTIQ ER PO SCH (09:32)
[2024-12-16] MEDS: Lopressor 50 MG PO SCH (09:33)
[2024-12-16] MEDS: Depakote EXTENDED RELEASE 250 MG PO SCH (09:33)
[2024-12-16] MEDS: SYNTHROID 112 MCG PO SCH (09:33)
[2024-12-16] MEDS: Nicoderm CQ 21 MG TOP SCH (09:42)
[2024-12-16] MEDS ORDERED: [UNRECOGNIZED DRUG - OTHER] SL SCH (10:00)
[2024-12-16] MEDS ORDERED: NON-FORMULARY ITEM (Gabapentin [Gabapentin] 600 MG Tablet) PO SCH (10:00)
[2024-12-16] MEDS ORDERED: NON-FORMULARY ITEM (Duloxetine Hcl [Duloxetine Hcl] 60 MG Capsule.Dr) PO SCH (10:00)
[2024-12-16] MEDS ORDERED: LUMATEPERONE TOSYLATE 21 MG PO SCH (10:00)
[2024-12-16] MEDS ORDERED: LIPITOR 40MG PO SCH (10:00)
[2024-12-16] MEDS ORDERED: ARMODAFINIL 250 MG PO SCH (10:00)
[2024-12-16] MEDS ORDERED: NALOXONE HCL SL SCH (10:00)
[2024-12-16] MEDS ORDERED: LEVOTHYROXINE SODIUM 137 MCG PO SCH (10:00)
[2024-12-16] MEDS ORDERED: BUPRENORPHINE HCL SL SCH (10:00)
[2024-12-16] MEDS: PATIENT OWN MEDICATION PO SCH (10:03)
[2024-12-16] MEDS: PATIENT OWN MEDICATION SL SCH (10:03)
--- NOTE | 2024-12-16 10:05 | PCM.DS ---
Discharge Summary Date of Admission: 12/16/24 04:26 Date of Discharge: 12/16/24 Admitting Physician: WILFRIDO MADRID MD Consults: Consults on Case 12/16/24 07:53 Notify Physician ROUTINE Primary Care Provider: SHANDA MATOS Allergies Allergies NSAIDS (Non-Steroidal Anti-Inflamma Allergy (Unknown, Verified 12/15/24 19:59) amoxicillin Allergy (Verified 12/15/24 19:59) erythromycin base Allergy (Verified 12/15/24 19:59) Hospital Summary - Hospital Course Hospital Course: Mrs. Fraser is a 39-year-old woman with a medical history of type 1 diabetes mellitus, hypothyroidism, anxiety, bipolar disorder, GERD, and chronic back pain presented to the hospital after being found unresponsive at home for an unknown period. EMS reported that she was hypoglycemic with a blood glucose of 43. Despite receiving three doses of Narcan and D10, she did not respond and was intubated for airway protection. However, by the time transport arrived, the patient had regained consciousness, removed her endotracheal tube, and returned to her baseline without further confusion. The patient reported that she had bolused herself with 30 units of short-acting insulin before eating but then did not finish her food, feeling unable to do so. Later, while walking from the kitchen to her bedroom, she suddenly collapsed and became unconscious. She denied experiencing palpitations, sweating, chest pain, or feelings of impending doom, and she also denied any intention of self-harm or overdose. During her hospital stay, the patient was in a good mood and expressed a desire to go home to care for her children and pets. She reported chronic back pain and a headache but had no other significant complaints. Her vital signs in the ER were stable, BP 97/54 mmHg, with a heart rate of 90 bpm. Laboratory tests, including blood work, came back unremarkable, except for a positive result for influenza A. Urine toxicology and serum alcohol levels were negative. CT scans of the facial bones, cervical spine, and head were all normal. The patient was admitted for close monitoring of her blood glucose and consideration for a behavioral health consult in the morning. She denied any suicidal ideation today and explained that her insulin dose was simply a result of not eating quickly enough after bolusing. She feels fine this morning and expressed a strong desire to discharge to care for her children. Her potassium was within normal limits, and glucose control was stable during her admission. Tamiflu was continued for influenza A. She requested cough medication abd throat spray for her symptoms and was advised it could be purchased OTC. At this time, she denies any further concerns. - Vitals & Intake/Output Vital Signs: Vital Signs Temperature 98.3 F 12/16/24 07:32 Pulse Rate 91 H 12/16/24 07:32 Respiratory Rate 17 12/16/24 07:32 Blood Pressure 128/78 12/16/24 07:32 O2 Sat by Pulse Oximetry 95 12/16/24 07:32 Intake & Output: Intake & Output 12/13/24 12/14/24 12/15/24 12/16/24 11:59 11:59 11:59 11:59 Intake Total 320 Output Total 1175 Balance -855 Weight 110.1 kg - Lab Result Diagrams: 12/16/24 08:49 12/16/24 08:49 Lab Results-Last 24 Hrs: Lab Results-Last 24 Hours 12/15/24 12/15/24 12/15/24 Range/Units 19:23 19:28 19:40 WBC 6.5 (3.98-10.04) x10^3/uL RBC 3.39 L (3.93-5.22) x10^6/uL Hgb 10.4 L (11.2-15.7) g/dL Hct 31.7 L (34.1-44.9) % MCV 93.5 (79.4-94.8) fL MCH 30.7 (25.6-32.2) pg MCHC 32.8 (32.2-35.5) g/dL RDW 12.4 (11.7-14.4) % Plt Count 143 L (182-369) x10^3/uL MPV 11.4 (9.4-12.3) fL Gran % 77.9 H (34.0-71.1) % Immature Gran % (Auto) 0.3 (0.001-0.429) % Nucleat RBC Rel Count 0.0 (0.00-0.2) % Eos # (Auto) 0.01 L (0.04-0.36) x10^3/uL Immature Gran # (Auto) 0.02 (0.001-0.031) x10^3u/L Absolute Lymphs (auto) 0.91 L (1.18-3.74) x10^3/uL Absolute Monos (auto) 0.48 (0.24-0.86) x10^3/uL Absolute Nucleated RBC 0.00 (0.00-0.012) x10^3u/L Lymphocytes % 14.0 L (19.3-51.7) % Monocytes % 7.4 (4.7-12.5) % Eosinophils % 0.2 L (0.7-5.8) % Basophils % 0.2 (0.1-1.2) % Absolute Granulocytes 5.05 (1.56-6.13) x10^3/uL Basophils # 0.01 (0.01-0.08) x10^3/uL PT (9.4-12.5) SECONDS INR (0.8-3.0) APTT (25.1-36.5) SECONDS Puncture Site RIGHT BRACHIAL pCO2 36 (35-45) mmHg pO2 240 H* (75-100) mmHg Base Excess -1.5 (-2.0-2.0) O2 Saturation 98.0 (94-100) g/dF ABG pH 7.41 (7.35-7.45) ABG HCO3 22.8 (22-28) ABG O2 Sat (Measured) 99.6 (95-100) % Shan Test YES A-a Gradient 428 a/A Ratio 0.36 Hemoglobin 10.2 Carboxyhemoglobin 1.0 (0.0-6.9) % THgb Methemoglobin 0.6 L (1.4-1.5) % Potassium 3.0 L (3.5-5.1) Temperature 37.0 C POC O2 Flow Rate 100 % Vent Mode VC/AC Vent Rate 16 /MIN Tidal Volume 700 cc PEEP 5 cmH2O Sodium (135-145) mmol/L Chloride (98-107) mmol/L Carbon Dioxide (22-30) mmol/L Anion Gap (5-15) MEQ/L BUN (7-17) mg/dL Creatinine (0.52-1.04) mg/dL Estimated GFR ML/MIN Glucose (74-106) mg/dL POC Glucometer 114 H (74 to 106) mg/dL Lactic Acid 0.9 (0.4-2.0) Calcium (8.4-10.2) mg/dL Magnesium (1.6-2.3) mg/dL Total Bilirubin (0.2-1.3) mg/dL AST (14-36) U/L ALT (0-35) U/L Alkaline Phosphatase (38-126) U/L Creatine Kinase (30-135) U/L Troponin I (0.000-0.033) ng/mL NT-Pro-B Natriuret Pep (<300) pg/mL Serum Total Protein (6.3-8.2) g/dL Albumin (3.5-5.0) g/dL Procalcitonin (0.030-0.080) ng/mL Serum HCG, Qual (NEGATIVE) Salicylates (2-20) mg/dL Urine Opiates Level (NEGATIVE) Ur Methadone (NEGATIVE) Acetaminophen (10-30) ug/ml Urine Barbiturates (NEGATIVE) Ur Phencyclidine (PCP) (NEGATIVE) Urine Amphetamine (NEGATIVE) U Benzodiazepine Level (NEGATIVE) Urine Cocaine (NEGATIVE) Urine Marijuana (THC) (NEGATIVE) Ethyl Alcohol (0-10) mg/dL Influenza Type A Ag (NEGATIVE) Influenza Type B Ag (NEGATIVE) RSV (PCR) (NEGATIVE) SARS-CoV-2 (PCR) (NEGATIVE) 12/15/24 12/15/24 12/15/24 Range/Units 19:40 19:40 19:40 WBC (3.98-10.04) x10^3/uL RBC (3.93-5.22) x10^6/uL Hgb (11.2-15.7) g/dL Hct (34.1-44.9) % MCV (79.4-94.8) fL MCH (25.6-32.2) pg MCHC (32.2-35.5) g/dL RDW (11.7-14.4) % Plt Count (182-369) x10^3/uL MPV (9.4-12.3) fL Gran % (34.0-71.1) % Immature Gran % (Auto) (0.001-0.429) % Nucleat RBC Rel Count (0.00-0.2) % Eos # (Auto) (0.04-0.36) x10^3/uL Immature Gran # (Auto) (0.001-0.031) x10^3u/L Absolute Lymphs (auto) (1.18-3.74) x10^3/uL Absolute Monos (auto) (0.24-0.86) x10^3/uL Absolute Nucleated RBC (0.00-0.012) x10^3u/L Lymphocytes % (19.3-51.7) % Monocytes % (4.7-12.5) % Eosinophils % (0.7-5.8) % Basophils % (0.1-1.2) % Absolute Granulocytes (1.56-6.13) x10^3/uL Basophils # (0.01-0.08) x10^3/uL PT (9.4-12.5) SECONDS INR (0.8-3.0) APTT (25.1-36.5) SECONDS Puncture Site pCO2 (35-45) mmHg pO2 (75-100) mmHg Base Excess (-2.0-2.0) O2 Saturation (94-100) g/dF ABG pH (7.35-7.45) ABG HCO3 (22-28) ABG O2 Sat (Measured) (95-100) % Shan Test A-a Gradient a/A Ratio Hemoglobin Carboxyhemoglobin (0.0-6.9) % THgb Methemoglobin (1.4-1.5) % Potassium 3.2 L (3.5-5.1) Temperature C POC O2 Flow Rate % Vent Mode Vent Rate /MIN Tidal Volume cc PEEP cmH2O Sodium 138 (135-145) mmol/L Chloride 105 (98-107) mmol/L Carbon Dioxide 24 (22-30) mmol/L Anion Gap 12.4 (5-15) MEQ/L BUN 10 (7-17) mg/dL Creatinine 0.73 (0.52-1.04) mg/dL Estimated GFR 106.6 ML/MIN Glucose 129 H (74-106) mg/dL POC Glucometer (74 to 106) mg/dL Lactic Acid (0.4-2.0) Calcium 7.6 L (8.4-10.2) mg/dL Magnesium 1.9 (1.6-2.3) mg/dL Total Bilirubin 0.50 (0.2-1.3) mg/dL AST 47 H (14-36) U/L ALT 59 H (0-35) U/L Alkaline Phosphatase 188 H (38-126) U/L Creatine Kinase 81 (30-135) U/L Troponin I < 0.012 (0.000-0.033) ng/mL NT-Pro-B Natriuret Pep 255 (<300) pg/mL Serum Total Protein 6.3 (6.3-8.2) g/dL Albumin 3.6 (3.5-5.0) g/dL Procalcitonin 0.031 (0.030-0.080) ng/mL Serum HCG, Qual NEGATIVE (NEGATIVE) Salicylates < 1.0 L (2-20) mg/dL Urine Opiates Level (NEGATIVE) Ur Methadone (NEGATIVE) Acetaminophen < 10 L (10-30) ug/ml Urine Barbiturates (NEGATIVE) Ur Phencyclidine (PCP) (NEGATIVE) Urine Amphetamine (NEGATIVE) U Benzodiazepine Level (NEGATIVE) Urine Cocaine (NEGATIVE) Urine Marijuana (THC) (NEGATIVE) Ethyl Alcohol < 10 (0-10) mg/dL Influenza Type A Ag (NEGATIVE) Influenza Type B Ag (NEGATIVE) RSV (PCR) (NEGATIVE) SARS-CoV-2 (PCR) (NEGATIVE) 12/15/24 12/15/24 12/15/24 Range/Units 19:40 19:40 19:40 WBC (3.98-10.04) x10^3/uL RBC (3.93-5.22) x10^6/uL Hgb (11.2-15.7) g/dL Hct (34.1-44.9) % MCV (79.4-94.8) fL MCH (25.6-32.2) pg MCHC (32.2-35.5) g/dL RDW (11.7-14.4) % Plt Count (182-369) x10^3/uL MPV (9.4-12.3) fL Gran % (34.0-71.1) % Immature Gran % (Auto) (0.001-0.429) % Nucleat RBC Rel Count (0.00-0.2) % Eos # (Auto) (0.04-0.36) x10^3/uL Immature Gran # (Auto) (0.001-0.031) x10^3u/L Absolute Lymphs (auto) (1.18-3.74) x10^3/uL Absolute Monos (auto) (0.24-0.86) x10^3/uL Absolute Nucleated RBC (0.00-0.012) x10^3u/L Lymphocytes % (19.3-51.7) % Monocytes % (4.7-12.5) % Eosinophils % (0.7-5.8) % Basophils % (0.1-1.2) % Absolute Granulocytes (1.56-6.13) x10^3/uL Basophils # (0.01-0.08) x10^3/uL PT 10.4 (9.4-12.5) SECONDS INR 0.95 (0.8-3.0) APTT 29.4 (25.1-36.5) SECONDS Puncture Site pCO2 (35-45) mmHg pO2 (75-100) mmHg Base Excess (-2.0-2.0) O2 Saturation (94-100) g/dF ABG pH (7.35-7.45) ABG HCO3 (22-28) ABG O2 Sat (Measured) (95-100) % Shan Test A-a Gradient a/A Ratio Hemoglobin Carboxyhemoglobin (0.0-6.9) % THgb Methemoglobin (1.4-1.5) % Potassium (3.5-5.1) Temperature C POC O2 Flow Rate % Vent Mode Vent Rate /MIN Tidal Volume cc PEEP cmH2O Sodium (135-145) mmol/L Chloride (98-107) mmol/L Carbon Dioxide (22-30) mmol/L Anion Gap (5-15) MEQ/L BUN (7-17) mg/dL Creatinine (0.52-1.04) mg/dL Estimated GFR ML/MIN Glucose (74-106) mg/dL POC Glucometer 87 (74 to 106) mg/dL Lactic Acid (0.4-2.0) Calcium (8.4-10.2) mg/dL Magnesium (1.6-2.3) mg/dL Total Bilirubin (0.2-1.3) mg/dL AST (14-36) U/L ALT (0-35) U/L Alkaline Phosphatase (38-126) U/L Creatine Kinase (30-135) U/L Troponin I (0.000-0.033) ng/mL NT-Pro-B Natriuret Pep (<300) pg/mL Serum Total Protein (6.3-8.2) g/dL Albumin (3.5-5.0) g/dL Procalcitonin (0.030-0.080) ng/mL Serum HCG, Qual (NEGATIVE) Salicylates (2-20) mg/dL Urine Opiates Level (NEGATIVE) Ur Methadone (NEGATIVE) Acetaminophen (10-30) ug/ml Urine Barbiturates (NEGATIVE) Ur Phencyclidine (PCP) (NEGATIVE) Urine Amphetamine (NEGATIVE) U Benzodiazepine Level (NEGATIVE) Urine Cocaine (NEGATIVE) Urine Marijuana (THC) (NEGATIVE) Ethyl Alcohol (0-10) mg/dL Influenza Type A Ag POSITIVE A (NEGATIVE) Influenza Type B Ag NEGATIVE (NEGATIVE) RSV (PCR) NEGATIVE (NEGATIVE) SARS-CoV-2 (PCR) NEGATIVE (NEGATIVE) 12/15/24 12/15/24 12/15/24 Range/Units 19:55 20:00 20:19 WBC (3.98-10.04) x10^3/uL RBC (3.93-5.22) x10^6/uL Hgb (11.2-15.7) g/dL Hct (34.1-44.9) % MCV (79.4-94.8) fL MCH (25.6-32.2) pg MCHC (32.2-35.5) g/dL RDW (11.7-14.4) % Plt Count (182-369) x10^3/uL MPV (9.4-12.3) fL Gran % (34.0-71.1) % Immature Gran % (Auto) (0.001-0.429) % Nucleat RBC Rel Count (0.00-0.2) % Eos # (Auto) (0.04-0.36) x10^3/uL Immature Gran # (Auto) (0.001-0.031) x10^3u/L Absolute Lymphs (auto) (1.18-3.74) x10^3/uL Absolute Monos (auto) (0.24-0.86) x10^3/uL Absolute Nucleated RBC (0.00-0.012) x10^3u/L Lymphocytes % (19.3-51.7) % Monocytes % (4.7-12.5) % Eosinophils % (0.7-5.8) % Basophils % (0.1-1.2) % Absolute Granulocytes (1.56-6.13) x10^3/uL Basophils # (0.01-0.08) x10^3/uL PT (9.4-12.5) SECONDS INR (0.8-3.0) APTT (25.1-36.5) SECONDS Puncture Site pCO2 (35-45) mmHg pO2 (75-100) mmHg Base Excess (-2.0-2.0) O2 Saturation (94-100) g/dF ABG pH (7.35-7.45) ABG HCO3 (22-28) ABG O2 Sat (Measured) (95-100) % Shan Test A-a Gradient a/A Ratio Hemoglobin Carboxyhemoglobin (0.0-6.9) % THgb Methemoglobin (1.4-1.5) % Potassium (3.5-5.1) Temperature C POC O2 Flow Rate % Vent Mode Vent Rate /MIN Tidal Volume cc PEEP cmH2O Sodium (135-145) mmol/L Chloride (98-107) mmol/L Carbon Dioxide (22-30) mmol/L Anion Gap (5-15) MEQ/L BUN (7-17) mg/dL Creatinine (0.52-1.04) mg/dL Estimated GFR ML/MIN Glucose (74-106) mg/dL POC Glucometer 129 H 120 H (74 to 106) mg/dL Lactic Acid (0.4-2.0) Calcium (8.4-10.2) mg/dL Magnesium (1.6-2.3) mg/dL Total Bilirubin (0.2-1.3) mg/dL AST (14-36) U/L ALT (0-35) U/L Alkaline Phosphatase (38-126) U/L Creatine Kinase (30-135) U/L Troponin I (0.000-0.033) ng/mL NT-Pro-B Natriuret Pep (<300) pg/mL Serum Total Protein (6.3-8.2) g/dL Albumin (3.5-5.0) g/dL Procalcitonin (0.030-0.080) ng/mL Serum HCG, Qual (NEGATIVE) Salicylates (2-20) mg/dL Urine Opiates Level NEGATIVE (NEGATIVE) Ur Methadone NEGATIVE (NEGATIVE) Acetaminophen (10-30) ug/ml Urine Barbiturates NEGATIVE (NEGATIVE) Ur Phencyclidine (PCP) NEGATIVE (NEGATIVE) Urine Amphetamine NEGATIVE (NEGATIVE) U Benzodiazepine Level NEGATIVE (NEGATIVE) Urine Cocaine NEGATIVE (NEGATIVE) Urine Marijuana (THC) POSITIVE A (NEGATIVE) Ethyl Alcohol (0-10) mg/dL Influenza Type A Ag (NEGATIVE) Influenza Type B Ag (NEGATIVE) RSV (PCR) (NEGATIVE) SARS-CoV-2 (PCR) (NEGATIVE) 12/15/24 12/15/24 12/15/24 Range/Units 20:41 21:18 22:05 WBC (3.98-10.04) x10^3/uL RBC (3.93-5.22) x10^6/uL Hgb (11.2-15.7) g/dL Hct (34.1-44.9) % MCV (79.4-94.8) fL MCH (25.6-32.2) pg MCHC (32.2-35.5) g/dL RDW (11.7-14.4) % Plt Count (182-369) x10^3/uL MPV (9.4-12.3) fL Gran % (34.0-71.1) % Immature Gran % (Auto) (0.001-0.429) % Nucleat RBC Rel Count (0.00-0.2) % Eos # (Auto) (0.04-0.36) x10^3/uL Immature Gran # (Auto) (0.001-0.031) x10^3u/L Absolute Lymphs (auto) (1.18-3.74) x10^3/uL Absolute Monos (auto) (0.24-0.86) x10^3/uL Absolute Nucleated RBC (0.00-0.012) x10^3u/L Lymphocytes % (19.3-51.7) % Monocytes % (4.7-12.5) % Eosinophils % (0.7-5.8) % Basophils % (0.1-1.2) % Absolute Granulocytes (1.56-6.13) x10^3/uL Basophils # (0.01-0.08) x10^3/uL PT (9.4-12.5) SECONDS INR (0.8-3.0) APTT (25.1-36.5) SECONDS Puncture Site pCO2 (35-45) mmHg pO2 (75-100) mmHg Base Excess (-2.0-2.0) O2 Saturation (94-100) g/dF ABG pH (7.35-7.45) ABG HCO3 (22-28) ABG O2 Sat (Measured) (95-100) % Shan Test A-a Gradient a/A Ratio Hemoglobin Carboxyhemoglobin (0.0-6.9) % THgb Methemoglobin (1.4-1.5) % Potassium (3.5-5.1) Temperature C POC O2 Flow Rate % Vent Mode Vent Rate /MIN Tidal Volume cc PEEP cmH2O Sodium (135-145) mmol/L Chloride (98-107) mmol/L Carbon Dioxide (22-30) mmol/L Anion Gap (5-15) MEQ/L BUN (7-17) mg/dL Creatinine (0.52-1.04) mg/dL Estimated GFR ML/MIN Glucose (74-106) mg/dL POC Glucometer 111 H 122 H 111 H (74 to 106) mg/dL Lactic Acid (0.4-2.0) Calcium (8.4-10.2) mg/dL Magnesium (1.6-2.3) mg/dL Total Bilirubin (0.2-1.3) mg/dL AST (14-36) U/L ALT (0-35) U/L Alkaline Phosphatase (38-126) U/L Creatine Kinase (30-135) U/L Troponin I (0.000-0.033) ng/mL NT-Pro-B Natriuret Pep (<300) pg/mL Serum Total Protein (6.3-8.2) g/dL Albumin (3.5-5.0) g/dL Procalcitonin (0.030-0.080) ng/mL Serum HCG, Qual (NEGATIVE) Salicylates (2-20) mg/dL Urine Opiates Level (NEGATIVE) Ur Methadone (NEGATIVE) Acetaminophen (10-30) ug/ml Urine Barbiturates (NEGATIVE) Ur Phencyclidine (PCP) (NEGATIVE) Urine Amphetamine (NEGATIVE) U Benzodiazepine Level (NEGATIVE) Urine Cocaine (NEGATIVE) Urine Marijuana (THC) (NEGATIVE) Ethyl Alcohol (0-10) mg/dL Influenza Type A Ag (NEGATIVE) Influenza Type B Ag (NEGATIVE) RSV (PCR) (NEGATIVE) SARS-CoV-2 (PCR) (NEGATIVE) 12/15/24 12/15/24 12/15/24 Range/Units 22:41 23:47 23:47 WBC (3.98-10.04) x10^3/uL RBC (3.93-5.22) x10^6/uL Hgb (11.2-15.7) g/dL Hct (34.1-44.9) % MCV (79.4-94.8) fL MCH (25.6-32.2) pg MCHC (32.2-35.5) g/dL RDW (11.7-14.4) % Plt Count (182-369) x10^3/uL MPV (9.4-12.3) fL Gran % (34.0-71.1) % Immature Gran % (Auto) (0.001-0.429) % Nucleat RBC Rel Count (0.00-0.2) % Eos # (Auto) (0.04-0.36) x10^3/uL Immature Gran # (Auto) (0.001-0.031) x10^3u/L Absolute Lymphs (auto) (1.18-3.74) x10^3/uL Absolute Monos (auto) (0.24-0.86) x10^3/uL Absolute Nucleated RBC (0.00-0.012) x10^3u/L Lymphocytes % (19.3-51.7) % Monocytes % (4.7-12.5) % Eosinophils % (0.7-5.8) % Basophils % (0.1-1.2) % Absolute Granulocytes (1.56-6.13) x10^3/uL Basophils # (0.01-0.08) x10^3/uL PT (9.4-12.5) SECONDS INR (0.8-3.0) APTT (25.1-36.5) SECONDS Puncture Site pCO2 (35-45) mmHg pO2 (75-100) mmHg Base Excess (-2.0-2.0) O2 Saturation (94-100) g/dF ABG pH (7.35-7.45) ABG HCO3 (22-28) ABG O2 Sat (Measured) (95-100) % Shan Test A-a Gradient a/A Ratio Hemoglobin Carboxyhemoglobin (0.0-6.9) % THgb Methemoglobin (1.4-1.5) % Potassium (3.5-5.1) Temperature C POC O2 Flow Rate % Vent Mode Vent Rate /MIN Tidal Volume cc PEEP cmH2O Sodium (135-145) mmol/L Chloride (98-107) mmol/L Carbon Dioxide (22-30) mmol/L Anion Gap (5-15) MEQ/L BUN (7-17) mg/dL Creatinine (0.52-1.04) mg/dL Estimated GFR ML/MIN Glucose (74-106) mg/dL POC Glucometer 154 H 198 H 198 H (74 to 106) mg/dL Lactic Acid (0.4-2.0) Calcium (8.4-10.2) mg/dL Magnesium (1.6-2.3) mg/dL Total Bilirubin (0.2-1.3) mg/dL AST (14-36) U/L ALT (0-35) U/L Alkaline Phosphatase (38-126) U/L Creatine Kinase (30-135) U/L Troponin I (0.000-0.033) ng/mL NT-Pro-B Natriuret Pep (<300) pg/mL Serum Total Protein (6.3-8.2) g/dL Albumin (3.5-5.0) g/dL Procalcitonin (0.030-0.080) ng/mL Serum HCG, Qual (NEGATIVE) Salicylates (2-20) mg/dL Urine Opiates Level (NEGATIVE) Ur Methadone (NEGATIVE) Acetaminophen (10-30) ug/ml Urine Barbiturates (NEGATIVE) Ur Phencyclidine (PCP) (NEGATIVE) Urine Amphetamine (NEGATIVE) U Benzodiazepine Level (NEGATIVE) Urine Cocaine (NEGATIVE) Urine Marijuana (THC) (NEGATIVE) Ethyl Alcohol (0-10) mg/dL Influenza Type A Ag (NEGATIVE) Influenza Type B Ag (NEGATIVE) RSV (PCR) (NEGATIVE) SARS-CoV-2 (PCR) (NEGATIVE) 12/15/24 12/16/24 12/16/24 Range/Units 23:54 04:34 07:13 WBC (3.98-10.04) x10^3/uL RBC (3.93-5.22) x10^6/uL Hgb (11.2-15.7) g/dL Hct (34.1-44.9) % MCV (79.4-94.8) fL MCH (25.6-32.2) pg MCHC (32.2-35.5) g/dL RDW (11.7-14.4) % Plt Count (182-369) x10^3/uL MPV (9.4-12.3) fL Gran % (34.0-71.1) % Immature Gran % (Auto) (0.001-0.429) % Nucleat RBC Rel Count (0.00-0.2) % Eos # (Auto) (0.04-0.36) x10^3/uL Immature Gran # (Auto) (0.001-0.031) x10^3u/L Absolute Lymphs (auto) (1.18-3.74) x10^3/uL Absolute Monos (auto) (0.24-0.86) x10^3/uL Absolute Nucleated RBC (0.00-0.012) x10^3u/L Lymphocytes % (19.3-51.7) % Monocytes % (4.7-12.5) % Eosinophils % (0.7-5.8) % Basophils % (0.1-1.2) % Absolute Granulocytes (1.56-6.13) x10^3/uL Basophils # (0.01-0.08) x10^3/uL PT (9.4-12.5) SECONDS INR (0.8-3.0) APTT (25.1-36.5) SECONDS Puncture Site pCO2 (35-45) mmHg pO2 (75-100) mmHg Base Excess (-2.0-2.0) O2 Saturation (94-100) g/dF ABG pH (7.35-7.45) ABG HCO3 (22-28) ABG O2 Sat (Measured) (95-100) % Shan Test A-a Gradient a/A Ratio Hemoglobin Carboxyhemoglobin (0.0-6.9) % THgb Methemoglobin (1.4-1.5) % Potassium (3.5-5.1) Temperature C POC O2 Flow Rate % Vent Mode Vent Rate /MIN Tidal Volume cc PEEP cmH2O Sodium (135-145) mmol/L Chloride (98-107) mmol/L Carbon Dioxide (22-30) mmol/L Anion Gap (5-15) MEQ/L BUN (7-17) mg/dL Creatinine (0.52-1.04) mg/dL Estimated GFR ML/MIN Glucose (74-106) mg/dL POC Glucometer 212 H 226 H 228 H (74 to 106) mg/dL Lactic Acid (0.4-2.0) Calcium (8.4-10.2) mg/dL Magnesium (1.6-2.3) mg/dL Total Bilirubin (0.2-1.3) mg/dL AST (14-36) U/L ALT (0-35) U/L Alkaline Phosphatase (38-126) U/L Creatine Kinase (30-135) U/L Troponin I (0.000-0.033) ng/mL NT-Pro-B Natriuret Pep (<300) pg/mL Serum Total Protein (6.3-8.2) g/dL Albumin (3.5-5.0) g/dL Procalcitonin (0.030-0.080) ng/mL Serum HCG, Qual (NEGATIVE) Salicylates (2-20) mg/dL Urine Opiates Level (NEGATIVE) Ur Methadone (NEGATIVE) Acetaminophen (10-30) ug/ml Urine Barbiturates (NEGATIVE) Ur Phencyclidine (PCP) (NEGATIVE) Urine Amphetamine (NEGATIVE) U Benzodiazepine Level (NEGATIVE) Urine Cocaine (NEGATIVE) Urine Marijuana (THC) (NEGATIVE) Ethyl Alcohol (0-10) mg/dL Influenza Type A Ag (NEGATIVE) Influenza Type B Ag (NEGATIVE) RSV (PCR) (NEGATIVE) SARS-CoV-2 (PCR) (NEGATIVE) 12/16/24 12/16/24 Range/Units 08:49 08:49 WBC 5.6 (3.98-10.04) x10^3/uL RBC 3.79 L (3.93-5.22) x10^6/uL Hgb 11.5 (11.2-15.7) g/dL Hct 34.4 (34.1-44.9) % MCV 90.8 (79.4-94.8) fL MCH 30.3 (25.6-32.2) pg MCHC 33.4 (32.2-35.5) g/dL RDW 12.4 (11.7-14.4) % Plt Count 178 L (182-369) x10^3/uL MPV 11.1 (9.4-12.3) fL Gran % (34.0-71.1) % Immature Gran % (Auto) (0.001-0.429) % Nucleat RBC Rel Count (0.00-0.2) % Eos # (Auto) (0.04-0.36) x10^3/uL Immature Gran # (Auto) (0.001-0.031) x10^3u/L Absolute Lymphs (auto) (1.18-3.74) x10^3/uL Absolute Monos (auto) (0.24-0.86) x10^3/uL Absolute Nucleated RBC (0.00-0.012) x10^3u/L Lymphocytes % (19.3-51.7) % Monocytes % (4.7-12.5) % Eosinophils % (0.7-5.8) % Basophils % (0.1-1.2) % Absolute Granulocytes (1.56-6.13) x10^3/uL Basophils # (0.01-0.08) x10^3/uL PT (9.4-12.5) SECONDS INR (0.8-3.0) APTT (25.1-36.5) SECONDS Puncture Site pCO2 (35-45) mmHg pO2 (75-100) mmHg Base Excess (-2.0-2.0) O2 Saturation (94-100) g/dF ABG pH (7.35-7.45) ABG HCO3 (22-28) ABG O2 Sat (Measured) (95-100) % Shan Test A-a Gradient a/A Ratio Hemoglobin Carboxyhemoglobin (0.0-6.9) % THgb Methemoglobin (1.4-1.5) % Potassium 3.8 (3.5-5.1) Temperature C POC O2 Flow Rate % Vent Mode Vent Rate /MIN Tidal Volume cc PEEP cmH2O Sodium 137 (135-145) mmol/L Chloride 102 (98-107) mmol/L Carbon Dioxide 26 (22-30) mmol/L Anion Gap 12.9 (5-15) MEQ/L BUN 7 (7-17) mg/dL Creatinine 0.58 (0.52-1.04) mg/dL Estimated GFR 117.3 ML/MIN Glucose 222 H (74-106) mg/dL POC Glucometer (74 to 106) mg/dL Lactic Acid (0.4-2.0) Calcium 8.7 (8.4-10.2) mg/dL Magnesium (1.6-2.3) mg/dL Total Bilirubin 0.50 (0.2-1.3) mg/dL AST 37 H (14-36) U/L ALT 63 H (0-35) U/L Alkaline Phosphatase 200 H (38-126) U/L Creatine Kinase (30-135) U/L Troponin I (0.000-0.033) ng/mL NT-Pro-B Natriuret Pep (<300) pg/mL Serum Total Protein 7.0 (6.3-8.2) g/dL Albumin 4.1 (3.5-5.0) g/dL Procalcitonin (0.030-0.080) ng/mL Serum HCG, Qual (NEGATIVE) Salicylates (2-20) mg/dL Urine Opiates Level (NEGATIVE) Ur Methadone (NEGATIVE) Acetaminophen (10-30) ug/ml Urine Barbiturates (NEGATIVE) Ur Phencyclidine (PCP) (NEGATIVE) Urine Amphetamine (NEGATIVE) U Benzodiazepine Level (NEGATIVE) Urine Cocaine (NEGATIVE) Urine Marijuana (THC) (NEGATIVE) Ethyl Alcohol (0-10) mg/dL Influenza Type A Ag (NEGATIVE) Influenza Type B Ag (NEGATIVE) RSV (PCR) (NEGATIVE) SARS-CoV-2 (PCR) (NEGATIVE) Micro Results-Entire Visit: Accuchecks Date 12/16/24 Time 07:32 - Radiology Exams Ordered Rad Exams-Entire Visit: Radiology Procedures Category Date Time Status CERVICAL SPINE WO CONTRAST [CT] Stat Exams 12/15/24 19:36 Completed CHEST 1 VIEW (PORTABLE) Stat Exams 12/15/24 19:21 Completed CHEST 1 VIEW (PORTABLE) Stat Exams 12/15/24 19:46 Completed FACIAL BONES WO CONTRAST [CT] Stat Exams 12/15/24 19:36 Completed HEAD WITHOUT CONTRAST [CT] Stat Exams 12/15/24 19:36 Completed - Procedures and Test Procedures and Tests throughout Hospitalization: Therapy Orders & Screens 12/15/24 20:40 Intubate Patient STAT Comment: Standby STAT Comment: Ventilator Management STAT Comment: 12/16/24 00:43 Extubate Patient [email or web address] Comment: 12/16/24 04:26 Respiratory Therapy Consult ONCE Comment: Reason For Exam: Discharge Exam General Appearance: no apparent distress, alert, obese Neurologic Exam: alert, oriented x 3, cooperative, normal mood/affect, nml cerebellar function, sensation nml, No motor deficits Eye Exam: PERRL, EOMI, eyes nml inspection Ears, Nose, Throat Exam: normal ENT inspection, pharynx normal, moist mucous membranes Neck Exam: normal inspection, non-tender, supple, full range of motion Respiratory Exam: normal breath sounds, lungs clear, No respiratory distress Cardiovascular Exam: regular rate/rhythm, normal heart sounds Gastrointestinal/Abdomen Exam: soft, No tenderness, No mass Pelvic Exam: deferred Rectal Exam: deferred Back Exam: normal inspection, normal range of motion, No CVA tenderness, No vertebral tenderness Extremity Exam: normal inspection, normal range of motion Skin Exam: normal color, warm, dry Final Diagnosis/Problem List - Final Discharge Diagnosis/Problem (1) Altered mental status Current Visit: Yes Status: Acute Assessment & Plan: - resolved - 2:2 hypoglycemia - CT head negative Code(s): R41.82 - ALTERED MENTAL STATUS, UNSPECIFIED (2) Fall Current Visit: Yes Status: Acute Assessment & Plan: - CT head- neg for acute concerns - Facial bone CT- Left submandibular lymphadenopathy with smaller cervical submaddibular, and supraclavicular nodes. - Will need further eval OP with PCP and dentist - ground level no acute injuries Code(s): W19.XXXA - UNSPECIFIED FALL, INITIAL ENCOUNTER (3) Hypoglycemia Current Visit: Yes Status: Resolved Assessment & Plan: - resolved since admission - hypoglycemia protocol Code(s): E16.2 - HYPOGLYCEMIA, UNSPECIFIED (4) Influenza A Current Visit: Yes Status: Acute Assessment & Plan: - tamiflu - CXR reviewed- negative Code(s): J10.1 - FLU DUE TO OTH IDENT INFLUENZA VIRUS W OTH RESP MANIFEST (5) Diabetes Current Visit: No Status: Chronic Assessment & Plan: - Continue home meds - hypoglycemia protocol - A1c not checked here- will need to f/u OP with PCP - accuchecks ac/hs - Humalog s/s Code(s): E11.9 - TYPE 2 DIABETES MELLITUS WITHOUT COMPLICATIONS (6) Morbid obesity with BMI of 40.0-44.9, adult Current Visit: Yes Status: Chronic Assessment & Plan: - Advised ADA diet and exercise control Code(s): E66.01 - MORBID (SEVERE) OBESITY DUE TO EXCESS CALORIES; Z68.41 - BODY MASS INDEX [BMI] 40.0-44.9, ADULT - Discharge Discharge Date: 12/16/24 Disposition: Home, Self-Care Condition: Serious Prescriptions: New Oseltamivir 75 mg [Tamiflu 75MG Capsule] 75 mg PO BID 5 Days #10 cap Continue Atorvastatin Calcium [Lipitor 40Mg] 40 mg PO DAILY Insulin Glargine [Lantus Insulin] 40 unit SQ BID Metoprolol Tartrate 50 mg [Lopressor 50 MG] 50 mg PO BID armodafiniL [Armodafinil] 250 mg PO QAM Sumatriptan Succinate [Imitrex] 50 mg PO UD Ondansetron ODT 4 MG [Zofran Odt 4 mg] 4 mg PO Q6H PRN PRN PRN Reason: Nausea Buprenorphine HCl/Naloxone HCl [Zubsolv 11.4-2.9 mg Tablet Sl] 1 each SL BID Desvenlafaxine Succinate [Desvenlafaxine Succinate ER] 50 mg PO DAILY Lumateperone Tosylate [Caplyta] 21 mg PO DAILY AMITRIPTYLINE HCL 50 mg Tab [AMITRIPTYLINE HCL 50 mg Tablet] 150 mg PO HS Gabapentin 600 mg PO TID Divalproex Sodium ER 250 mg [Depakote EXTENDED RELEASE 250 MG] 250 mg PO TID Levothyroxine Sodium 137 mcg PO DAILY Hydroxyzine HCl 25 mg [Atarax 25 mg] 25 mg PO Q8HPRN PRN PRN Reason: hives Cholecalciferol (Vitamin D3) [Vitamin D] 5,000 unit PO WEEKLY Celecoxib 100 mg [celeBREX 100 MG] 200 mg PO DAILY PANTOPRAZOLE 40 mg Tablet [Protonix 40MG Tablet] 40 mg PO QAM Duloxetine HCl 60 mg PO DAILY Glucagon [Gvoke Hypopen 2-Pack] 0.5 mg SQ UD Galcanezumab-Gnlm [Emgality Pen] 120 mg SQ UD Additional Instructions: Facial bone CT- Left submandibular lymphadenopathy with smaller cervical submaddibular, and supraclavicular nodes. - Will need further eval OP with PCP and dentist. Cough medication sent in, throat spray can be bought OTC. Follow up with: SHANDA MATOS MD [Primary Care Provider] -
[2024-12-16] MEDS ORDERED: Amidate 20 MG/10 ML IV ONE (10:46)
[2024-12-16] MEDS ORDERED: Zemuron 100 MG/10 ML IJ ONE (10:46)
[2024-12-18] MEDS ORDERED: VITAMIN D PO SCH (10:00)
== END 2024-12-16 10:47 | disposition home or self-care (01) ==
LOC: ED 19:07 → MED SURG 12-16 04:26
PROVIDERS: ADMIT Internal Medicine; ATTEND Internal Medicine
DX: R41.82 Altered mental status, unspecified (principal); W19.XXXA Unspecified fall, initial encounter; E11.649 Type 2 diabetes mellitus with hypoglycemia without coma; J10.1 Influenza due to other identified influenza virus with other respiratory manifestations; E66.01 Morbid (severe) obesity due to excess calories; Z68.41 Body mass index [BMI] 40.0-44.9, adult; E03.9 Hypothyroidism, unspecified; F41.9 Anxiety disorder, unspecified; K21.9 Gastro-esophageal reflux disease without esophagitis; R51.9 Headache, unspecified; E78.5 Hyperlipidemia, unspecified; F17.200 Nicotine dependence, unspecified, uncomplicated; Z79.899 Other long term (current) drug therapy
CPT/HCPCS: 0241U; 31500; 36415; 36600; 51702; 70450; 70486; 71045; 72125; 80053; 80143; 80179; 80307; 82077; 82375; 82550; 82803; 82947; 83605; 83735; 83880; 84145; 84484; 84703; 85025; 85027; 85610; 85730; 87040; 87086; 93005; 93268; 94002; 94799; 96375; 99291; 99292; G0378; Q3014; 99285; J1200; J2405; J2704; J2919; A9270-GY